=== PATIENT | male | born 1960 | race Caucasian/White ===

== ENCOUNTER 2016-10-12 22:44 | Emergency (ER) | payer BC ==
[2016-10-12] MEDS ORDERED: Aspirin 81 MG Tab.Chew ONE (22:53)
[2016-10-12] MEDS ORDERED: Clopidogrel 75 MG Tab ONE (22:55)
[2016-10-12] MEDS ORDERED: Tenecteplase 50 MG Kit ONE (23:00)
[2016-10-12] MEDS ORDERED: Heparin Sod,Pork In 0.45% Nacl 25,000 UNIT/500 ML IV.SOLN IV ONE (23:02)
[2016-10-12] MEDS ORDERED: Heparin Sodium 5,000 Units/ML Vial ONE (23:04)
[2016-10-12] MEDS ORDERED: Aspirin 81 MG Tab.Chew PO ONE ×2 (23:05→23:17)
[2016-10-12] MEDS ORDERED: Sodium Chloride 0.9% 10 ML Syringe FLUSH PRN (23:05)
[2016-10-12] MEDS ORDERED: Sodium Chloride 0.9% 2.5 ML Syringe FLUSH PRN (23:05)
[2016-10-12] MEDS ORDERED: Heparin Sodium 5,000 Units/ML Vial IVPUSH ONE (23:07)
[2016-10-12] MEDS ORDERED: Clopidogrel 75 MG Tab PO ONE (23:17)
[2016-10-12] MEDS ORDERED: Tenecteplase 50 MG Kit IV STA (23:18)
[2016-10-12] MEDS ORDERED: Heparin Sod,Pork In 0.45% Nacl 25,000 UNIT/500 ML IV.SOLN IV SCH (23:30)
[2016-10-12] MEDS ORDERED: Sodium Chloride 0.9% 1,000 ML IV SCH (23:45)
[2016-10-13 01:01] VITALS: BP 128/85
--- NOTE | 2016-10-13 01:42 | EDM.PDOC ---
ED HPI GENERAL MEDICAL PROBLEM - General Chief Complaint: Chest Pain Stated Complaint: CHEST PAIN/BACK PAIN Time Seen by Provider: 10/12/16 23:04 Source of Information: Reports: Patient, Family History Limitations: Reports: No Limitations - History of Present Illness INITIAL COMMENTS - FREE TEXT/NARRATIVE: HISTORY AND PHYSICAL: History of present illness: [56-year-old male with a history of prior rhinorrhea artery disease and MT, now presents emergency department complaining of sudden onset of chest pressure with lightheadedness nausea and sweating just prior to arrival. Patient states that his pain feels just like when he had his previous heart attack. Brought in by family for evaluation. Patient states he had taken 2 baby aspirin at home. he is not on any anticoagulants. Denies recent illness. Pain does not radiate. He has no pleuritic pain. No productive cough or fever. Pain is not worse with movement ,range of motion, or palpation. Review of systems: As per history of present illness and below otherwise all systems reviewed and negative. Past medical history: As per history of present illness and as reviewed below otherwise noncontributory. Surgical history: As per history of present illness and as reviewed below otherwise noncontributory. Social history: No reported history of drug or alcohol abuse. Family history: As per history of present illness and as reviewed below otherwise noncontributory. Physical exam: Ill-appearing patient mildly diaphoretic and pale. Alert, communicative and appropriate. Clear lungs regular rate and rhythm nontender abdomen with normal extremities and no edema. HEENT: Atraumatic, normocephalic, pupils reactive, negative for conjunctival pallor or scleral icterus, mucous membranes moist, throat clear, neck supple, nontender, trachea midline. Lungs: Clear to auscultation, breath sounds equal bilaterally, chest nontender. Heart: S1S2, regular, negative for clicks, rubs, or JVD. Abdomen: Soft, nondistended, nontender. Negative for masses or hepatosplenomegaly. Negative for costovertebral tenderness. Pelvis: Stable nontender. Genitourinary: Deferred. Rectal: Deferred. Extremities: Atraumatic, negative for cords or calf pain. Neurovascular unremarkable. Neuro: Awake, alert, oriented. Cranial nerves grossly unremarkable. Exam nonfocal. Diagnostics: [EKG normal sinus rhythm no tachycardia positive for anterolateral STEMI interpreted by me Chest x-ray no wide mediastinum. Chronic changes no acute disease interpreted by me] Therapeutics: [Patient taken 2 baby aspirin at home. To more given in ED. Plavix dose 300 mg administered by mouth. Heparin bolus and drip given and initiated. Patient hypotensive on arrival. IV fluids initiated however narcotics and nitroglycerin held because of hypotension. Thrombolytics given by me see procedure note] Impression: [STEMI Chest pain Hypotension] Plan: [Signs and symptoms consistent with acute coronary syndrome with EKG showing anterolateral STEMI. EKG obtained immediately on arrival and read at bedside by me. STEMI alert activated. Patient initially hypotensive and diaphoretic however his diaphoresis resolved with IV fluids and improve blood pressure. Patient with no contraindications to thrombolytics. He is aware the risk of bleeding including or permanent disability however agrees with administration of thrombolytics as standard of care for his acute MT. Heparinization initiated. After MT diagnosed on EKG, [facility] was immediately contacted regarding transfer. Taste discussed with Dr. Rviera in the emergency department and accepted in transfer for intervention in the [facility] as needed. Patient will be flown via [employer] helicopter air ambulance. Transfer initiated. Procedure: Administration of thrombolytics by me. TNKase dosed for patient's 100 kg weight. Verbal consent obtained after patient was screened for contraindications and risks explained. Does prepare, verified as correct by me 50 mg IV push at bedside by me with 5 mL normal saline flush. No infiltration in the IV site. Patient tolerated well with no complications. Critical care 54 minutes Definitive disposition and diagnosis as appropriate pending reevaluation and review of above. chest Pain Score (Numeric/FACES): 9 - Related Data Allergies Allergy/AdvReac Type Severity Reaction Status Date / Time No Known Allergies Allergy Verified 10/12/16 23:01 Home Meds: Home Meds Aspirin 81 mg PO BRK 10/12/16 [History] Past Medical History Cardiovascular History: Reports: High Cholesterol, Hypertension, MT, Stents Respiratory History: Reports: None Gastrointestinal History: Reports: None Genitourinary History: Reports: None Other Musculoskeletal History: carpel tunnel Neurological History: Reports: None Psychiatric History: Reports: None Endocrine/Metabolic History: Reports: None Oncologic (Cancer) History: Reports: None Dermatologic History: Reports: None - Infectious Disease History Infectious Disease History: Reports: Chicken Pox - Past Surgical History HEENT Surgical History: Reports: Eye Surgery Male Surgical History: Reports: None Social & Family History - Family History Family Medical History: Noncontributory - Tobacco Use Smoking Status *Q: Current Every Day Smoker Years of Tobacco use: 30 Packs/Tins Daily: 1 - Recreational Drug Use Recreational Drug Use: Yes Recreational Drug Type: Reports: Marijuana/Hashish ED ROS GENERAL - Review of Systems Review Of Systems: See Below (History of present illness) ED EXAM, GENERAL - Physical Exam Exam: See Below (History of present illness) Course - Vital Signs Last Recorded V/S: Last Vital Signs Temp 36.1 C 10/12/16 22:44 Pulse 105 H 10/12/16 23:31 Resp 22 H 10/12/16 23:31 BP 128/85 10/12/16 23:31 Pulse Ox 97 10/12/16 23:31 - Orders/Labs/Meds Orders: Active Orders 24 hr Category Date Time Status EKG 12 Lead [EKG Documentation Completion] [RC] STAT Care 10/12/16 23:05 Ordered Chest 1V Frontal [CR] Stat Exams 10/12/16 23:05 Ordered Heparin Sod,Pork In 0.45% Nacl [Heparin-1/2Ns 25,000 Med 10/12/16 23:30 Active Units/500] 25,000 unit in 500 ml IV TITRATE Sodium Chloride 0.9% [Normal Saline] 1,000 ml Med 10/12/16 23:45 Active IV ASDIRECTED Sodium Chloride 0.9% [Saline Flush] Med 10/12/16 23:05 Ordered 10 ml FLUSH ASDIRECTED PRN Sodium Chloride 0.9% [Saline Flush] Med 10/12/16 23:05 Ordered 2.5 ml FLUSH ASDIRECTED PRN Peripheral IV Insertion Adult [OM.PC] Stat Oth 10/12/16 23:05 Ordered Medication Orders Heparin Sod,Pork In 0.45% Nacl (Heparin-1/2ns 25,000 Units/500) 25,000 unit in 500 mls @ 23.732 mls/hr IV TITRATE SCAR; 12 UNITS/KG/HR PRN Reason: Protocol Last Admin: 10/12/16 23:08 Dose: 12 units/kg/hr, 23.732 mls/hr Sodium Chloride (Normal Saline) 1,000 mls @ 999 mls/hr IV ASDIRECTED SCAR Last Admin: 10/12/16 22:44 Dose: 999 mls/hr Sodium Chloride (Saline Flush) 10 ml FLUSH ASDIRECTED PRN PRN Reason: Keep Vein Open Sodium Chloride (Saline Flush) 2.5 ml FLUSH ASDIRECTED PRN PRN Reason: Keep Vein Open Labs: Laboratory Tests 10/12/16 10/12/16 10/12/16 Range/Units 22:48 22:48 22:48 WBC 10.02 (4.0-11.0) K/uL RBC 4.65 (4.50-5.90) M/uL Hgb 15.3 (13.0-17.0) g/dL Hct 45.1 (38.0-50.0) % MCV 97.0 (80.0-98.0) fL MCH 32.9 H (27.0-32.0) pg MCHC 33.9 (31.0-37.0) g/dL RDW Std Deviation 45.7 (28.0-62.0) fl RDW Coeff of Fariba 13 (11.0-15.0) % Plt Count 207 (150-400) K/uL MPV 10.70 (7.40-12.00) fL Neut % (Auto) 61.5 (48.0-80.0) % Lymph % (Auto) 26.9 (16.0-40.0) % [place] % (Auto) 8.1 (0.0-15.0) % Eos % (Auto) 2.9 (0.0-7.0) % Baso % (Auto) 0.6 (0.0-1.5) % Neut # (Auto) 6.2 H (1.4-5.7) K/uL Lymph # (Auto) 2.7 H (0.6-2.4) K/uL [place] # (Auto) 0.8 (0.0-0.8) K/uL Eos # (Auto) 0.3 (0.0-0.7) K/uL Baso # (Auto) 0.1 (0.0-0.1) K/uL Nucleated RBC % 0.0 /100WBC Nucleated RBCs # 0 K/uL INR (0.86-1.11) Sodium 138 (136-146) mmol/L Potassium 3.6 (3.5-5.1) mmol/L Chloride 103 (98-110) mmol/L Carbon Dioxide 25 (21-31) mmol/L BUN 19 (6.0-23.0) mg/dL Creatinine 1.6 H (0.6-1.5) mg/dL Est Cr Clr Drug Dosing 47.62 mL/min Estimated GFR (MDRD) 44.8 ml/min Glucose 108 (60-110) mg/dL Calcium 9.5 (8.8-10.8) mg/dL Magnesium (1.5-2.3) mEq/L Total Bilirubin 0.4 (0.1-1.5) mg/dL AST 16 (5-40) IU/L ALT 18 (8-54) IU/L Alkaline Phosphatase 45 (40-150) CK-MB (CK-2) (0-6.6) ng/ml Troponin I < 0.10 (0.0-0.29) NG/ML Total Protein 6.8 (6.0-8.0) g/dL Albumin 4.0 (3.5-5.0) g/dL Globulin 2.8 (2.0-3.5) g/dL Albumin/Globulin Ratio 1.4 (1.3-2.8) 10/12/16 10/12/16 Range/Units 22:48 22:48 WBC (4.0-11.0) K/uL RBC (4.50-5.90) M/uL Hgb (13.0-17.0) g/dL Hct (38.0-50.0) % MCV (80.0-98.0) fL MCH (27.0-32.0) pg MCHC (31.0-37.0) g/dL RDW Std Deviation (28.0-62.0) fl RDW Coeff of Fariba (11.0-15.0) % Plt Count (150-400) K/uL MPV (7.40-12.00) fL Neut % (Auto) (48.0-80.0) % Lymph % (Auto) (16.0-40.0) % [place] % (Auto) (0.0-15.0) % Eos % (Auto) (0.0-7.0) % Baso % (Auto) (0.0-1.5) % Neut # (Auto) (1.4-5.7) K/uL Lymph # (Auto) (0.6-2.4) K/uL [place] # (Auto) (0.0-0.8) K/uL Eos # (Auto) (0.0-0.7) K/uL Baso # (Auto) (0.0-0.1) K/uL Nucleated RBC % /100WBC Nucleated RBCs # K/uL INR 0.99 (0.86-1.11) Sodium (136-146) mmol/L Potassium (3.5-5.1) mmol/L Chloride (98-110) mmol/L Carbon Dioxide (21-31) mmol/L BUN (6.0-23.0) mg/dL Creatinine (0.6-1.5) mg/dL Est Cr Clr Drug Dosing mL/min Estimated GFR (MDRD) ml/min Glucose (60-110) mg/dL Calcium (8.8-10.8) mg/dL Magnesium 1.6 (1.5-2.3) mEq/L Total Bilirubin (0.1-1.5) mg/dL AST (5-40) IU/L ALT (8-54) IU/L Alkaline Phosphatase (40-150) CK-MB (CK-2) 1.4 (0-6.6) ng/ml Troponin I (0.0-0.29) NG/ML Total Protein (6.0-8.0) g/dL Albumin (3.5-5.0) g/dL Globulin (2.0-3.5) g/dL Albumin/Globulin Ratio (1.3-2.8) Meds: Medications Generic Name Dose Route Start Last Admin Trade Name Freq PRN Reason Stop Dose Admin Heparin Sod,Pork In 0.45% Nacl 25,000 unit in 500 mls @ 23.732 mls/hr 23:30 10/12/16 23:08 Heparin-1/2ns 25,000 Units/500 IV 12 units/kg/hr TITRATE SCAR 23.732 mls/hr Protocol Administration 12 UNITS/KG/HR Sodium Chloride 1,000 mls @ 999 mls/hr 10/12/16 23:45 10/12/16 22:44 Normal Saline IV 999 mls/hr ASDIRECTED SACR Administration Sodium Chloride 10 ml 10/12/16 23:05 Saline Flush FLUSH ASDIRECTED PRN Keep Vein Open Sodium Chloride 2.5 ml 10/12/16 23:05 Saline Flush FLUSH ASDIRECTED PRN Keep Vein Open Discontinued Medications Generic Name Dose Route Start Last Admin Trade Name Mojgan PRN Reason Stop Dose Admin Aspirin Confirm 10/12/16 22:53 10/12/16 23:45 Aspirin Administered 10/12/16 22:54 Not Given Dose 162 mg .ROUTE .STK-MED ONE Aspirin 324 mg 10/12/16 23:05 10/12/16 23:45 Aspirin PO 10/12/16 23:06 Not Given ONETIME ONE Aspirin 162 mg 10/12/16 23:17 10/12/16 22:53 Aspirin PO 10/12/16 23:18 162 mg ONETIME ONE Administration Clopidogrel Bisulfate Confirm 10/12/16 22:55 10/12/16 23:45 Plavix Administered 10/12/16 22:56 Not Given Dose 600 mg .ROUTE .STK-MED ONE Clopidogrel Bisulfate 300 mg 10/12/16 23:17 10/12/16 23:03 Plavix PO 10/12/16 23:18 300 mg ONETIME ONE Administration Heparin Sodium (Porcine) Confirm 10/12/16 23:04 10/12/16 23:45 Heparin Sodium Administered 10/12/16 23:05 Not Given Dose 10,000 units .ROUTE .STK-MED ONE Heparin Sodium (Porcine) 4,000 units 10/12/16 23:07 10/12/16 23:07 Heparin Sodium IVPUSH 10/12/16 23:08 4,000 units ONETIME ONE Administration Heparin Sod,Pork In 0.45% Nacl Confirm 10/12/16 23:02 10/12/16 23:45 Heparin-1/2ns 25,000 Units/500 Administered 10/12/16 23:03 Not Given Dose 25,000 unit in 500 mls @ as directed IV .STK-MED ONE Tenecteplase Confirm 10/12/16 23:00 10/12/16 23:45 Tnkase Administered 10/12/16 23:01 Not Given Dose 50 mg .ROUTE .STK-MED ONE Tenecteplase 50 mg 10/12/16 23:18 10/12/16 23:18 Tnkase IV 10/12/16 23:19 50 mg NOW STA Administration Protocol Departure - Departure Time of Disposition: 23:40 Disposition: DC/Tfer to Acute Hospital 02 Condition: Critical Clinical Impression: STEMI (ST elevation myocardial infarction), Chest pain, Hypotension - Discharge Information - My Orders Last 24 Hours: My Active Orders 10/12/16 23:05 EKG 12 Lead [EKG Documentation Completion] [RC] STAT Chest 1V Frontal [CR] Stat Sodium Chloride 0.9% [Saline Flush] 10 ml FLUSH ASDIRECTED PRN Sodium Chloride 0.9% [Saline Flush] 2.5 ml FLUSH ASDIRECTED PRN Peripheral IV Insertion Adult [OM.PC] Stat 10/12/16 23:30 Heparin Sod,Pork In 0.45% Nacl [Heparin-1/2Ns 25,000 Units/500] 25,000 unit in 500 ml IV TITRATE 10/12/16 23:45 Sodium Chloride 0.9% [Normal Saline] 1,000 ml IV ASDIRECTED - Assessment/Plan Last 24 Hours: My Active Orders 10/12/16 23:05 EKG 12 Lead [EKG Documentation Completion] [RC] STAT Chest 1V Frontal [CR] Stat Sodium Chloride 0.9% [Saline Flush] 10 ml FLUSH ASDIRECTED PRN Sodium Chloride 0.9% [Saline Flush] 2.5 ml FLUSH ASDIRECTED PRN Peripheral IV Insertion Adult [OM.PC] Stat 10/12/16 23:30 Heparin Sod,Pork In 0.45% Nacl [Heparin-1/2Ns 25,000 Units/500] 25,000 unit in 500 ml IV TITRATE 10/12/16 23:45 Sodium Chloride 0.9% [Normal Saline] 1,000 ml IV ASDIRECTED
--- NOTE | 2016-10-13 10:56 | CR ---
EXAM DATE: 10/12/16 PATIENT'S AGE: 56 Patient: LEIGH VILLASENOR Facility: [place], [place] Site . Site : 1960 Study: XRay Chest [id number] 11:19:52 PM Ordering Physician: Flaquito Harper Final Report: INDICATIONS: Pain. TECHNIQUE: Chest 1 view portable. COMPARISON: None FINDINGS: The peripheral right costophrenic angle is excluded from the field of view. No evidence of pneumothorax or pleural effusion. Indeterminate nodular density at the left lung base. Lungs are otherwise clear. Cardiac and mediastinal contours are within normal limits. Upper abdomen and osseous structures show no acute abnormality. IMPRESSION: No evidence of acute cardiopulmonary disease. Indeterminate nodular density at the left lung base. Followup chest CT recommended to confirm or disprove the presence of a pulmonary nodule. If appropriate, this can be done on a nonemergent basis. Dictated by Anthony Elder MD @ 10/12/2016 11:31:05 PM Dictated by: Anthony Elder MD @ 10/12/2016 23:31:17 (Electronic Signature) Report Signed by Proxy. THERESE
== END 2016-10-12 23:38 ==
LOC: MW.ED 22:44
DX: I21.3 ST elevation (STEMI) myocardial infarction of unspecified site (principal); I95.9 Hypotension, unspecified; I10 Essential (primary) hypertension; F17.210 Nicotine dependence, cigarettes, uncomplicated; Z98.890 Other specified postprocedural states; Z95.5 Presence of coronary angioplasty implant and graft
CPT/HCPCS: 36415; 71010; 80053; 82553; 83735; 84484; 85025; 85610; 93005; 96361; 96365; 96374; 99285; A9270; J1644; J3101; J7040; 99291

== ENCOUNTER 2016-10-23 22:14 | Observation (INO) | payer BC ==
[2016-10-23] MEDS ORDERED: Aspirin 81 MG Tab.Chew PO ONE (22:21)
--- NOTE | 2016-10-23 22:23 | EDM.PDOC ---
ED HPI GENERAL MEDICAL PROBLEM - General Chief Complaint: General Stated Complaint: CHEST PAIN Time Seen by Provider: 10/23/16 22:22 Source of Information: Reports: Patient - History of Present Illness INITIAL COMMENTS - FREE TEXT/NARRATIVE: HISTORY AND PHYSICAL: History of present illness: []Patient presents with history of recent DC on 10/12/2016 he was initially shipped a minute where he was stented in the LAD, tonight she had sharp. Pain was lightheaded sweaty this since resolved no fever nausea vomiting chills sweats no current chest pain shortness breath headache dizziness or palpitation no bowel or urine symptoms Review of systems: As per history of present illness and below otherwise all systems reviewed and negative. Past medical history: As per history of present illness and as reviewed below otherwise noncontributory. Surgical history: As per history of present illness and as reviewed below otherwise noncontributory. Social history: No reported history of drug or alcohol abuse. Family history: As per history of present illness and as reviewed below otherwise noncontributory. Physical exam: HEENT: Atraumatic, normocephalic, pupils reactive, negative for conjunctival pallor or scleral icterus, mucous membranes moist, throat clear, neck supple, nontender, trachea midline. Lungs: Clear to auscultation, breath sounds equal bilaterally, chest nontender. Heart: S1S2, regular, negative for clicks, rubs, or JVD. Abdomen: Soft, nondistended, nontender. Negative for masses or hepatosplenomegaly. Negative for costovertebral tenderness. Pelvis: Stable nontender. Genitourinary: Deferred. Rectal: Deferred. Extremities: Atraumatic, negative for cords or calf pain. Neurovascular unremarkable. Neuro: Awake, alert, oriented. Cranial nerves II through XII unremarkable. Cerebellum unremarkable. Motor and sensory unremarkable throughout. Exam nonfocal. Diagnostics: []CBC, CMP, cardiac enzymes Therapeutics: Normal saline bolus Aspirin 324 mg chewable EKG Chest 1 view Impression: []A typical chest pain Definitive disposition and diagnosis as appropriate pending reevaluation and review of above. no pain Pain Score (Numeric/FACES): 0 - Related Data Allergies Allergy/AdvReac Type Severity Reaction Status Date / Time No Known Allergies Allergy Verified 10/23/16 22:20 Home Meds: Home Meds Aspirin 81 mg PO BRK 10/12/16 [History] Clopidogrel Bisulfate [Plavix] 75 mg PO DAILY 10/23/16 [History] Losartan [Cozaar] 25 mg PO DAILY 10/23/16 [History] Metoprolol Succinate [Toprol XL] 25 mg PO DAILY 10/23/16 [History] Nitroglycerin 1 tab SL ASDIRECTED 10/23/16 [History] Past Medical History Cardiovascular History: Reports: High Cholesterol, Hypertension, DC, Stents Respiratory History: Reports: None Gastrointestinal History: Reports: None Genitourinary History: Reports: None Other Musculoskeletal History: carpel tunnel Neurological History: Reports: None Psychiatric History: Reports: None Endocrine/Metabolic History: Reports: None Oncologic (Cancer) History: Reports: None Dermatologic History: Reports: None - Infectious Disease History Infectious Disease History: Reports: Chicken Pox - Past Surgical History HEENT Surgical History: Reports: Eye Surgery Male Surgical History: Reports: None Social & Family History - Family History Family Medical History: Noncontributory - Tobacco Use Smoking Status *Q: Current Every Day Smoker Years of Tobacco use: 30 Packs/Tins Daily: 1 - Recreational Drug Use Recreational Drug Use: Yes Recreational Drug Type: Reports: Marijuana/Hashish ED ROS GENERAL - Review of Systems Review Of Systems: ROS reveals no pertinent complaints other than HPI. ED EXAM, GENERAL - Physical Exam Exam: See Below Course - Vital Signs Last Recorded V/S: Last Vital Signs Temp 36.1 C 10/23/16 22:20 Pulse 74 10/23/16 23:01 Resp 20 10/23/16 23:01 BP 127/69 10/23/16 23:01 Pulse Ox 98 10/23/16 23:01 - Orders/Labs/Meds Orders: Active Orders 24 hr Category Date Time Status EKG Documentation Completion [RC] STAT Care 10/23/16 22:21 Active Chest 1V Frontal [CR] Stat Exams 10/23/16 22:21 Taken UA W/MICROSCOPIC [URIN] Stat Lab 10/23/16 22:21 Uncollected Sodium Chloride 0.9% [Normal Saline] 1,000 ml Med 10/23/16 22:30 Active IV STAT Medication Orders Sodium Chloride (Normal Saline) 1,000 mls @ 125 mls/hr IV STAT SCAR Last Admin: 10/23/16 22:29 Dose: 125 mls/hr Labs: Laboratory Tests 10/23/16 10/23/16 10/23/16 Range/Units 22:25 22:25 22:25 WBC 9.20 (4.0-11.0) K/uL RBC 4.49 L (4.50-5.90) M/uL Hgb 14.8 (13.0-17.0) g/dL Hct 43.7 (38.0-50.0) % MCV 97.3 (80.0-98.0) fL MCH 33.0 H (27.0-32.0) pg MCHC 33.9 (31.0-37.0) g/dL RDW Std Deviation 46.0 (28.0-62.0) fl RDW Coeff of Fariba 13 (11.0-15.0) % Plt Count 189 (150-400) K/uL MPV 10.80 (7.40-12.00) fL Neut % (Auto) 64.3 (48.0-80.0) % Lymph % (Auto) 23.3 (16.0-40.0) % [place] % (Auto) 8.4 (0.0-15.0) % Eos % (Auto) 3.3 (0.0-7.0) % Baso % (Auto) 0.7 (0.0-1.5) % Neut # (Auto) 5.9 H (1.4-5.7) K/uL Lymph # (Auto) 2.1 (0.6-2.4) K/uL [place] # (Auto) 0.8 (0.0-0.8) K/uL Eos # (Auto) 0.3 (0.0-0.7) K/uL Baso # (Auto) 0.1 (0.0-0.1) K/uL Nucleated RBC % 0.0 /100WBC Nucleated RBCs # 0 K/uL Sodium 137 (136-146) mmol/L Potassium 3.8 (3.5-5.1) mmol/L Chloride 101 (98-110) mmol/L Carbon Dioxide 25 (21-31) mmol/L BUN 15 (6.0-23.0) mg/dL Creatinine 1.4 (0.6-1.5) mg/dL Est Cr Clr Drug Dosing 58.22 mL/min Estimated GFR (MDRD) 52.2 ml/min Glucose 131 H (60-110) mg/dL Calcium 9.1 (8.8-10.8) mg/dL Total Bilirubin 0.4 (0.1-1.5) mg/dL AST 17 (5-40) IU/L ALT 19 (8-54) IU/L Alkaline Phosphatase 55 (40-150) Troponin I < 0.10 (0.0-0.29) NG/ML Total Protein 6.9 (6.0-8.0) g/dL Albumin 3.9 (3.5-5.0) g/dL Globulin 3.0 (2.0-3.5) g/dL Albumin/Globulin Ratio 1.3 (1.3-2.8) Meds: Medications Generic Name Dose Route Start Last Admin Trade Name Freq PRN Reason Stop Dose Admin Sodium Chloride 1,000 mls @ 125 mls/hr 10/23/16 22:30 10/23/16 22:29 Normal Saline IV 125 mls/hr STAT SCAR Administration Discontinued Medications Generic Name Dose Route Start Last Admin Trade Name Freq PRN Reason Stop Dose Admin Aspirin 324 mg 10/23/16 22:21 10/23/16 22:27 Aspirin PO 10/23/16 22:22 162 mg ONETIME ONE Administration Departure - Departure Time of Disposition: 23:25 Disposition: Refer to Observation Condition: Fair Clinical Impression: Atypical chest pain - Discharge Information Forms: ED Department Discharge - My Orders Last 24 Hours: My Active Orders 10/23/16 22:21 EKG Documentation Completion [RC] STAT Chest 1V Frontal [CR] Stat UA W/MICROSCOPIC [URIN] Stat 10/23/16 22:30 Sodium Chloride 0.9% [Normal Saline] 1,000 ml IV STAT - Assessment/Plan Last 24 Hours: My Active Orders 10/23/16 22:21 EKG Documentation Completion [RC] STAT Chest 1V Frontal [CR] Stat UA W/MICROSCOPIC [URIN] Stat 10/23/16 22:30 Sodium Chloride 0.9% [Normal Saline] 1,000 ml IV STAT
[2016-10-23] MEDS ORDERED: Sodium Chloride 0.9% 1,000 ML IV SCH (22:30)
[2016-10-24] MEDS ORDERED: Albuterol/Ipratropium 3.0-0.5 MG/3 ML Neb Soln NEB PRN (00:59)
[2016-10-24] MEDS ORDERED: Nitroglycerin 0.4 MG Tab.SL SL PRN (01:30)
[2016-10-24] MEDS ORDERED: Calcium Carbonate 500 MG Tab.Chew PO PRN (01:35)
[2016-10-24] MEDS: Pantoprazole 40 MG Tab.CR PO SCH ×2 (01:47→08:16)
[2016-10-24] MEDS ORDERED: Aspirin 81 MG Tab.Chew PO SCH (09:00)
[2016-10-24] MEDS ORDERED: Metoprolol Succinate 25 MG Tab.ER PO SCH (09:00)
[2016-10-24] MEDS ORDERED: Clopidogrel 75 MG Tab PO SCH (09:00)
[2016-10-24] MEDS ORDERED: Losartan 50 MG Tab PO SCH (09:00)
[2016-10-24] MEDS ORDERED: Albuterol 8 GM Inhaler INH PRN (09:11)
[2016-10-24] MEDS ORDERED: prednisoLONE Acetate 1% Ophth Susp 5 ML Bottle EYEBOTH SCH (09:15)
--- NOTE | 2016-10-24 09:44 | PCM.HP ---
H&P History of Present Illness - General Date of Service: 10/24/16 - History of Present Illness Initial Comments - Free Text/Narative: 56-year-old gentleman who is presenting with , diaphoresis, and lightheadedness patient had significant past medical history of a recent MRI on 10/12/2016 with a stent placement in the LAD. patient states that he was going from the gas station and started to feel lightheaded and felt as if his heart had stopped. He states about a time he had gotten home the lightheadedness had resolved. He did not have any episodes of syncope. However, the diaphoresis and lightheadedness did start to come back he took 2 tablets of 81 mg aspirin as well as his sublingual nitroglycerin. After the sublingual nitroglycerin his diaphoresis and lightheadedness seem to gotten worse. He then came to the ER to be assessed. He did state that he also has back pain T1 to T2 area which is chronic in nature. He previously saw cardiology here in [place] on Monday. He states that throughout this entire process he had no chest pain or chest pressure. Onset of Symptoms: Reports: Sudden no pain Pain Score (Numeric/FACES): 0 - Related Data Allergies/Adverse Reactions: Allergies Allergy/AdvReac Type Severity Reaction Status Date / Time No Known Allergies Allergy Verified 10/23/16 22:20 Home Medications: Home Meds Aspirin 81 mg PO BRK 10/12/16 [History] Clopidogrel Bisulfate [Plavix] 75 mg PO DAILY 10/23/16 [History] Losartan [Cozaar] 25 mg PO DAILY 10/23/16 [History] Metoprolol Succinate [Toprol XL] 25 mg PO DAILY 10/23/16 [History] Albuterol Sulfate [Proair Hfa] 1 puff INH ASDIRECTED PRN 10/24/16 [History] Nitroglycerin 0.4 mg SL ASDIRECTED PRN 10/24/16 [History] prednisoLONE Acetate [Prednisolone Acetate] 1 drop OP DAILY 10/24/16 [History] Past Medical History HEENT History: Reports: Other (See Below) Other HEENT History: Corneal Problem Cardiovascular History: Reports: High Cholesterol, Hypertension, [place], Stents Respiratory History: Reports: COPD, Other (See Below) Other Respiratory History: sarcoidosis Gastrointestinal History: Reports: None Genitourinary History: Reports: None Other Musculoskeletal History: carpel tunnel Neurological History: Reports: None Psychiatric History: Reports: None Endocrine/Metabolic History: Reports: None Hematologic History: Reports: None Oncologic (Cancer) History: Reports: None Dermatologic History: Reports: None - Infectious Disease History Infectious Disease History: Reports: Chicken Pox - Past Surgical History HEENT Surgical History: Reports: Eye Surgery Male Surgical History: Reports: None Social & Family History - Family History Family Medical History: Noncontributory - Tobacco Use Smoking Status *Q: Current Every Day Smoker Years of Tobacco use: 30 Packs/Tins Daily: 0.5 - Caffeine Use Caffeine Use: Reports: Coffee - Recreational Drug Use Recreational Drug Use: Yes Recreational Drug Type: Reports: Marijuana/Hashish H&P Review of Systems - Review of Systems: Review Of Systems: See Below Exam - Exam Exam: See Below - Vital Signs Vital Signs: Last Vital Signs Temp 36.4 C 10/24/16 08:00 Pulse 70 10/24/16 08:17 Resp 18 10/24/16 08:00 BP 104/60 10/24/16 08:17 Pulse Ox 95 10/24/16 08:00 Weight: 108.6 kg - Exam General: Alert, Oriented HEENT: Conjunctiva Clear Neck: Supple, Trachea Midline Lungs: Clear to Auscultation, Normal Respiratory Effort Cardiovascular: Regular Rhythm, Bradycardia GI/Abdominal Exam: Normal Bowel Sounds, Soft Extremities: Normal Inspection, Non-Tender, No Pedal Edema - Patient Data Lab Results Last 24 hrs: Laboratory Results - last 24 hr 10/24/16 10/24/16 Range/Units 03:25 04:30 Troponin I < 0.10 (0.0-0.29) NG/ML Urine Color YELLOW Urine Appearance CLEAR Urine pH 7.0 (5.0-8.0) Ur Specific [place] 1.010 (1.001-1.035) Urine Protein NEGATIVE (NEGATIVE) mg/dL Urine Glucose (UA) NEGATIVE (NEGATIVE) mg/dL Urine Ketones NEGATIVE (NEGATIVE) mg/dL Urine Occult Blood NEGATIVE (NEGATIVE) Urine Nitrite NEGATIVE (NEGATIVE) Urine Bilirubin NEGATIVE (NEGATIVE) Urine Urobilinogen 0.2 (<2.0) EU/dL Ur Leukocyte Esterase NEGATIVE (NEGATIVE) Urine RBC 0-1 (0-2/HPF) Urine WBC 0-2 (0-5/HPF) Ur Epithelial Cells RARE (NONE-FEW) Urine Bacteria FEW (NEGATIVE) Result Diagrams: 10/23/16 22:25 10/23/16 22:25 *Q Meaningful Use (ADM) - VTE *Q VTE Criteria *Q: - Stroke *Q Stroke Criteria *Q: - AMI *Q AMI Criteria *Q: - Problem List (1) Bradycardia SNOMED Code(s): 15050511 ICD Code: R00.1 - BRADYCARDIA, UNSPECIFIED Status: Acute Current Visit: Yes (2) Atypical chest pain SNOMED Code(s): 311678244 ICD Code: R07.89 - OTHER CHEST PAIN Status: Acute Current Visit: Yes Problem List Initiated/Reviewed/Updated: Yes Orders Last 24hrs: Active Orders 24 hr Category Date Time Status Communication Order [RC] ROUTINE Care 10/24/16 00:59 Active RT Aerosol Therapy [RC] ASDIRECTED Care 10/24/16 01:00 Active Telemetry Monitoring [Cardiac Monitoring] [RC] . Care 10/23/16 23:37 Active DIRECTED Cardiac [Heart Healthy Diet] [DIET] Diet 10/24/16 Breakfast Active TROPONIN I [CHEM] Q6H Lab 10/24/16 10:25 Ordered Albuterol [Ventolin HFA] Med 10/24/16 09:11 Active 0 gm INH ASDIRECTED PRN Albuterol/Ipratropium [DuoNeb 3.0-0.5 MG/3 ML] Med 10/24/16 00:59 Active 3 ml NEB Q6HRRT PRN Aspirin Med 10/24/16 09:00 Active 81 mg PO BRK Calcium Carbonate [Tums] Med 10/24/16 01:35 Active 500 - 1,000 mg PO TID PRN Clopidogrel [Plavix] Med 10/24/16 09:00 Active 75 mg PO DAILY Losartan [Cozaar] Med 10/24/16 09:00 Active 25 mg PO DAILY Metoprolol Succinate [Toprol XL] Med 10/24/16 09:00 Active 25 mg PO DAILY Nitroglycerin [Nitrostat] Med 10/24/16 01:30 Active 0.4 mg SL ASDIRECTED PRN Pantoprazole [ProTONIX] Med 10/24/16 01:45 Active 40 mg PO DAILY prednisoLONE Acetate [Pred Forte 1% Ophth Susp] Med 10/24/16 09:15 Active 0 ml EYEBOTH DAILY Medication Orders Albuterol (Ventolin Hfa) 0 gm INH ASDIRECTED PRN PRN Reason: Wheezing Albuterol/Ipratropium (Duoneb 3.0-0.5 Mg/3 Ml) 3 ml NEB Q6HRRT PRN PRN Reason: Wheezing Last Admin: 10/24/16 01:16 Dose: 3 ml Aspirin (Aspirin) 81 mg PO BRK [facility] Last Admin: 10/24/16 08:16 Dose: 81 mg Calcium Carbonate/Glycine (Tums) 500 - 1,000 mg PO TID PRN PRN Reason: Indigestion Last Admin: 10/24/16 01:47 Dose: 1,000 mg Clopidogrel Bisulfate (Plavix) 75 mg PO DAILY [facility] Last Admin: 10/24/16 08:17 Dose: 75 mg Losartan Potassium (Cozaar) 25 mg PO DAILY [facility] Last Admin: 10/24/16 08:16 Dose: 25 mg Metoprolol Succinate (Toprol Xl) 25 mg PO DAILY [facility] Last Admin: 10/24/16 08:17 Dose: 25 mg Nitroglycerin (Nitrostat) 0.4 mg SL ASDIRECTED PRN PRN Reason: angina Pantoprazole Sodium (Protonix) 40 mg PO DAILY [facility] Last Admin: 10/24/16 08:16 Dose: 40 mg Admin: 10/24/16 01:47 Dose: 40 mg Prednisolone Acetate (Pred Forte 1% Ophth Susp) 0 ml EYEBOTH DAILY [facility] Assessment/Plan Comment:: assessment and plan: #1. Diaphoresis, lightheadedness and feeling of heart slowing down/stopping with a significant past medical history of a recent RI on 10/12/2016 with stent placement -ACS rule out - patient put on telemetry, troponin 3 -CMP as well as CBC - we shall hold the patient's metoprolol which she did receive today. - He did have significant bradycardia which could be classified as type I with a 3 second be delay. We shall speak with cardiology to get further recommendations. -Continue to observe the patient for today and if the patient is doing better and cardiology recommends outpatient follow-up and possible discharge later in the evening.
--- NOTE | 2016-10-24 13:41 | CR ---
EXAM DATE: 10/23/16 PATIENT'S AGE: 56 Patient: LEIGH VILLASENOR Facility: [place], [place] Site . Site : 1960 Study: XRay Chest [id number]/[id number] 10:43:16 PM Ordering Physician: Martina Barraza Final Report: INDICATIONS: Chest pain. Shortness of breath. TECHNIQUE: Chest 1 view. COMPARISON: Chest radiograph October 12, 2016. FINDINGS: No pneumothorax, pleural effusion or airspace consolidation. Previously discussed nodular density at the left lung base is not discretely identified on the current study. Cardiac and mediastinal contours are within normal limits. Upper abdomen and osseous structures show no acute abnormality. IMPRESSION: No evidence of acute cardiopulmonary disease. Dictated by Anthony Elder MD @ 10/23/2016 10:57:31 PM Dictated by: Anthony Elder MD @ 10/23/2016 22:57:40 (Electronic Signature) Report Signed by Proxy. [facility] HOSPITALJacqueline
[2016-10-24 14:05] VITALS: BP 127/82
--- NOTE | 2016-10-24 15:04 | CONS ---
DATE OF CONSULTATION: 10/24/2016 DATE OF : 1960 PRIMARY CARE PHYSICIAN: Lenin Sommer M.D. REASON FOR CONSULTATION: Bradycardia. HISTORY: This is a 56-year-old male with history of hypertension; history of CAD, status post RCA PCI in the past, recent anterior wall STEMI, status post PCI in [facility]; history of hypertension; hyperlipidemia; and COPD; who presented to the hospital yesterday because of feeling dizzy and sweating as well. Since the heart attack recently, he has been feeling okay until yesterday when he was going to the gas station, he started having fluttering in his chest. It was very quick, like few seconds, and then he started feeling dizzy. No shortness of breath. No chest pain or tightness, and no syncope. He stated that he came close to passing out and lasted for 5 to 10 minutes, and then he went back home, and the symptoms started again with feeling like sick to his stomach and also feeling sweaty as well. Then, he did not want to take a chance so he ended up coming to the hospital. Since he has been admitted to the hospital, his symptoms have gone away. On the telemetry, he was found to be bradycardic with a heart rate of 36, but most of the time when he was sleeping. PAST MEDICAL HISTORY: RCA PCI, history of anterior wall STEMI, status post recent PCI; hypertension; hyperlipidemia; and COPD. SOCIAL HISTORY: He currently is a smoker, but recently quit it. No alcohol use and no drug use. FAMILY HISTORY: Mother had a history of diabetes and father had a history of cardiac disorder. CURRENT MEDICATIONS: Metoprolol 25 mg once a day, aspirin 81 mg once a day, Plavix 75 mg once a day, ProAir, and losartan 25 mg once a day. REVIEW OF SYSTEMS: Except as indicated in the HPI, has been negative. PHYSICAL EXAMINATION: VITAL SIGNS: Blood pressure is 104/60, heart rate of 50 to 70, O2 saturation 95% on room air, and temperature 36.4. HEENT: No pallor. No jaundice. No JVD. HEART: Normal S1, S2. No murmur. Regular rate and rhythm. LUNGS: Clear. ABDOMEN: Soft and nontender. Bowel sounds are present. No hepatosplenomegaly. EXTREMITIES: Legs, no edema. LABORATORY DATA: CBC showed WBC 9, hematocrit 43, hemoglobin 14, and platelets 189. Sodium 137, potassium 3.8, chloride 101, bicarb 25, BUN 15, creatinine 1.4, and glucose 131. Troponin is negative. UA is negative. IMAGING: EKG shows sinus rhythm with Q-wave in II, III, and aVF. ASSESSMENT AND PLAN: This is a 56-year-old male with history of anterolateral wall ST-segment elevation myocardial infarction, history of RCA total occlusion, status post PCI; hypertension; hyperlipidemia; chronic obstructive pulmonary disease; current smoker; who presented to the hospital with dizziness and was found to have bradycardia while sleeping. On his EKG and telemetry, there is a prolongation of P-P interval that is suggestive of a vagal reaction. The patient also stated that his symptoms of dizziness and sweating have been going on for probably 20 times over the past years. It was first started when he had severe back pain. At that time, he remembers that his back pain got so severe that he started having stomach pain as well as feeling dizzy, nauseated, and almost passed out. This could also be related to vasovagal reaction as well; however, I would like to make sure there is no arrhythmia. I will put him on a 30-day heart monitor prior to discharge as well as lower his Toprol-XL to 12.5 once a day and continue the rest of the medications. I will follow him up as an outpatient as well. The record from [facility] is still pending. DONA / CHITRA /[id number]
== END 2016-10-24 15:45 | disposition home or self-care (01) ==
LOC: MW.ED 22:14 → MW.ICU 23:27
PROVIDERS: ADMIT Internal Medicine; ATTEND Internal Medicine
DX: R61 Generalized hyperhidrosis (principal); R42 Dizziness and giddiness; R00.1 Bradycardia, unspecified; R07.89 Other chest pain; I25.2 Old myocardial infarction; I10 Essential (primary) hypertension; E78.00 Pure hypercholesterolemia, unspecified; J44.9 Chronic obstructive pulmonary disease, unspecified; F17.210 Nicotine dependence, cigarettes, uncomplicated; Z79.02 Long term (current) use of antithrombotics/antiplatelets; Z79.82 Long term (current) use of aspirin; Z79.899 Other long term (current) drug therapy; Z98.890 Other specified postprocedural states; Z95.9 Presence of cardiac and vascular implant and graft, unspecified
CPT/HCPCS: 36415; 71010; 80053; 81001; 84484; 85025; 93005; 93270; 96360; 96361; 99285; A9270; G0378; J7040; 99284

== ENCOUNTER 2019-09-15 09:58 | Emergency (ER) | payer BC ==
[2019-09-15] MEDS ORDERED: Lidocaine 5% 700 MG Patch TOP ONE (10:18)
--- NOTE | 2019-09-15 10:24 | EDM.PDOC ---
ED HPI GENERAL MEDICAL PROBLEM - General Chief Complaint: General Stated Complaint: RIB PAIN RT SIDE Time Seen by Provider: 09/15/19 10:05 - History of Present Illness INITIAL COMMENTS - FREE TEXT/NARRATIVE: 59-year-old male with past history notable for [place] x2 who is presenting with acute sharp right rib pain. The patient sat up from sleep the morning before yesterday and felt a pop in the midclavicular line in the inferior rib that was quite painful. He has had persistent pain there since that time. It worsens with coughing significantly there is no associated shortness of breath there is no chest tightness there is no radiation of the pain there is no pain with exertion. There is no lightheadedness no dizziness no nausea or vomiting. Pain is preventing him from sleeping it worsens when he lays back it is isolated to a particular point in the right anterior chest wall. right rib Pain Score (Numeric/FACES): 10 - Related Data Allergies Allergy/AdvReac Type Severity Reaction Status Date / Time No Known Allergies Allergy Verified 10/23/16 22:20 Home Meds: Home Meds Aspirin 81 mg PO BRK 10/12/16 [History] Clopidogrel Bisulfate [Plavix] 75 mg PO DAILY 10/23/16 [History] Losartan [Cozaar] 25 mg PO DAILY 10/23/16 [History] Albuterol Sulfate [Proair Hfa] 1 puff INH ASDIRECTED PRN 10/24/16 [History] Metoprolol Succinate [Toprol XL] 12.5 mg PO DAILY #30 tab.er 10/24/16 [Rx] Nitroglycerin 0.4 mg SL ASDIRECTED PRN 10/24/16 [History] prednisoLONE Acetate [Prednisolone Acetate] 1 drop OP DAILY 10/24/16 [History] Lidocaine 5% [Lidoderm 5%] 1 patch TOP DAILY 14 Days #14 patch 09/15/19 [Rx] Past Medical History HEENT History: Reports: Other (See Below) Other HEENT History: Corneal Problem Cardiovascular History: Reports: High Cholesterol, Hypertension, [place], Stents Respiratory History: Reports: COPD, Other (See Below) Other Respiratory History: sarcoidosis Gastrointestinal History: Reports: None Genitourinary History: Reports: None Other Musculoskeletal History: carpel tunnel Neurological History: Reports: None Psychiatric History: Reports: None Endocrine/Metabolic History: Reports: None Hematologic History: Reports: None Oncologic (Cancer) History: Reports: None Dermatologic History: Reports: None - Infectious Disease History Infectious Disease History: Reports: Chicken Pox - Past Surgical History HEENT Surgical History: Reports: Eye Surgery Male Surgical History: Reports: None Social & Family History - Family History Family Medical History: Noncontributory - Caffeine Use Caffeine Use: Reports: Coffee ED ROS GENERAL - Review of Systems Review Of Systems: See Below Free Text/Narrative/Comment: General: No fever. Skin: No rash. Eyes: No vision problems. ENT: No sore throat. Neck: No neck stiffness. Respiratory: No shortness of breath. Cardiac: Per HPI Gastrointestinal: No nausea, vomiting or abdominal pain. Urinary: No dysuria. Musculoskeletal: No myalgias/arthralgias. Neurologic: No headache. ED EXAM, GENERAL - Physical Exam Exam: See Below Free Text/Narrative:: General Appearance: No acute distress, appears comfortable Skin: No rash HEENT: Normocephalic/atraumatic, sclera anicteric, mucous membranes moist Neck: Normal range of motion Chest and Lungs: Bilateral breath sounds, clear to auscultation Cardiovascular: Regular rate and rhythm, no murmur Chest Wall: There is focal tenderness in the midclavicular line at the costal chondral junction of the ninth rib palpation there reproduces his pain Abdomen: Soft, non-tender Back: Normal Musculoskeletal: No edema or tenderness Neurologic: Awake, alert, no obvious deficits, moving all extremities Psychiatric: Appropriate, cooperative Course - Vital Signs Last Recorded V/S: Last Vital Signs Temp 96.8 F L 09/15/19 10:14 Pulse 80 09/15/19 10:14 Resp 20 09/15/19 10:14 BP 155/71 H 09/15/19 10:14 Pulse Ox 92 L 09/15/19 10:14 - Orders/Labs/Meds Meds: Medications Discontinued Medications Generic Name Dose Route Start Last Admin Trade Name Freq PRN Reason Stop Dose Admin Lidocaine 700 mg 09/15/19 10:18 09/15/19 10:46 Lidoderm 5% TOP 09/15/19 10:19 700 mg ONETIME ONE Administration Departure - Departure Time of Disposition: 11:05 Disposition: Home, Self-Care 01 Condition: Good Clinical Impression: Costochondritis, acute - Discharge Information *PRESCRIPTION DRUG MONITORING PROGRAM REVIEWED*: Not Applicable *COPY OF PRESCRIPTION DRUG MONITORING REPORT IN PATIENT CATHERINE: Not Applicable Prescriptions: Lidocaine 5% [Lidoderm 5%] 1 patch TOP DAILY 14 Days #14 patch Instructions: Costochondritis, [id number] Referrals: Lenin Sommer MD [Primary Care Provider] - Forms: ED Department Discharge Additional Instructions: If you feel worse in the coming days or if you develop new symptoms since that shortness of breath, fever, abdominal pain, nausea or vomiting please see your doctor right away or return to the emergency department The following information is given to patients seen in the emergency department who are being discharged to home. This information is to outline your options for follow-up care. We provide all patients seen in our emergency department with a follow-up referral. The need for follow-up, as well as the timing and circumstances, are variable depending upon the specifics of your emergency department visit. If you don't have a primary care physician on staff, we will provide you with a referral. We always advise you to contact your personal physician following an emergency department visit to inform them of the circumstance of the visit and for follow-up with them and/or the need for any referrals to a consulting specialist. The emergency department will also refer you to a specialist when appropriate. This referral assures that you have the opportunity for follow-up care with a specialist. All of these measure are taken in an effort to provide you with optimal care, which includes your follow-up. Under all circumstances we always encourage you to contact your private physician who remains a resource for coordinating your care. When calling for follow-up care, please make the office aware that this follow-up is from your recent emergency room visit. If for any reason you are refused follow-up, please contact the [facility] Emergency Department at and asked to speak to the emergency department charge nurse.. Sepsis Event Note (ED) - Evaluation Sepsis Screening Result: No Definite Risk - Focused Exam Vital Signs: Vital Signs Temp Pulse Resp BP Pulse Ox 09/15/19 10:14 96.8 F L 80 20 155/71 H 92 L - Assessment/Plan Assessment:: 59-year-old male presenting with signs and symptoms that are most consistent with costochondritis. Multiple other etiologies were carefully considered. ACS carefully considered. However the clear trigger of the pain the reproducibility of the pain the lack of any secondary symptoms the clear focality of the pain all of this argues very strongly against ACS or primary cardiac process. Pericarditis myocarditis felt unlikely for similar reasons. Intra-abdominal pathology considered but the abdomen itself is completely benign and nontender and there were no GI symptoms. PE considered but there is no shortness of breath there is no hypoxia there is no tachycardia. And again the clear precipitating incident makes this less likely. Patient is also already on antiplatelets and has no lower extremity pain or swelling. Pneumonia considered felt very unlikely but x-rays pending pneumothorax considered and again x-ray pending. Patient drove here we will start with a Lidoderm patch and could add tramadol for pain if needed. Small intercostal muscle tear possible as well. If chest x-ray is unremarkable then would discharge with prescription for Lidoderm patch to picker machine operator tomorrow as well as tramadol. Patient is x-ray is normal. Patient somewhat more comfortable now. Prescription written for the lidocaine patches but option for OTC discussed as well. Patient provided with short tramadol course as well.
--- NOTE | 2019-09-15 10:44 | CR ---
INDICATION: Chest Pain TECHNIQUE: Chest 2 views. COMPARISON: None FINDINGS: Cardiomediastinal silhouette: Within normal limits. Lungs and pleural spaces: No focal consolidation. No pulmonary edema. No pleural effusion or pneumothorax. Bones and soft tissues: Within normal limits. IMPRESSION: No acute pulmonary process. Dictated by Marina Edwards MD @ 09/15/2019 10:43:01 AM Dictated by: Marina Edwards MD @ 09/15/2019 10:43:05 (Electronically Signed)
[2019-09-15 12:30] VITALS: BP 124/71; PULSE 72
== END 2019-09-15 11:25 | disposition home or self-care (01) ==
LOC: MW.ED 09:58
DX: M94.0 Chondrocostal junction syndrome [Tietze] (principal); I10 Essential (primary) hypertension; I25.2 Old myocardial infarction; Z79.82 Long term (current) use of aspirin; Z79.02 Long term (current) use of antithrombotics/antiplatelets; Z79.899 Other long term (current) drug therapy
CPT/HCPCS: 71046; 99283; A9270

== ENCOUNTER 2020-10-07 02:19 | Emergency (ER) | payer BC ==
--- NOTE | 2020-10-07 02:26 | EDM.PDOC ---
ED HPI GENERAL MEDICAL PROBLEM - General Stated Complaint: EXTREME RIB PAIN AFTER A HARD COUGH Time Seen by Provider: 10/07/20 02:25 Source of Information: Reports: Patient History Limitations: Reports: No Limitations - History of Present Illness INITIAL COMMENTS - FREE TEXT/NARRATIVE: 60-year-old male past medical history sarcoidosis, CAD status post VA presents for left anterior inferior rib pain. Patient notes that he presented to the emergency department roughly a year ago with very similar symptoms but on the right side. Patient notes that he has a chronic productive cough and was coughing heavily 2 days ago and felt something pop and is ever since had pain in his left inferior anterior ribs. He denies any worsening of chronic shortness of breath. He denies any fevers. Left Trunk Pain Score (Numeric/FACES): 1 - Related Data Allergies Allergy/AdvReac Type Severity Reaction Status Date / Time No Known Allergies Allergy Verified 10/07/20 02:26 Home Meds: Home Meds Aspirin 81 mg PO BRK 10/12/16 [History] Clopidogrel Bisulfate [Plavix] 75 mg PO DAILY 10/23/16 [History] Losartan [Cozaar] 25 mg PO DAILY 10/23/16 [History] Albuterol Sulfate [Proair Hfa] 1 puff INH ASDIRECTED PRN 10/24/16 [History] Metoprolol Succinate [Toprol XL] 12.5 mg PO DAILY #30 tab.er 10/24/16 [Rx] Nitroglycerin 0.4 mg SL ASDIRECTED PRN 10/24/16 [History] prednisoLONE Acetate [Prednisolone Acetate] 1 drop OP DAILY 10/24/16 [History] Lidocaine 5% [Lidoderm 5%] 1 patch TOP DAILY 14 Days #14 patch 09/15/19 [Rx] Past Medical History HEENT History: Reports: Other (See Below) Other HEENT History: Corneal Problem Cardiovascular History: Reports: High Cholesterol, Hypertension, [place], Stents Respiratory History: Reports: COPD, Other (See Below) Other Respiratory History: sarcoidosis Gastrointestinal History: Reports: None Genitourinary History: Reports: None Other Musculoskeletal History: carpel tunnel Neurological History: Reports: None Psychiatric History: Reports: None Endocrine/Metabolic History: Reports: None Hematologic History: Reports: None Oncologic (Cancer) History: Reports: None Dermatologic History: Reports: None - Infectious Disease History Infectious Disease History: Reports: Chicken Pox - Past Surgical History HEENT Surgical History: Reports: Eye Surgery Male Surgical History: Reports: None Social & Family History - Family History Family Medical History: No Pertinent Family History - Caffeine Use Caffeine Use: Reports: Coffee ED ROS GENERAL - Review of Systems Review Of Systems: Comprehensive ROS is negative, except as noted in HPI. ED EXAM, GENERAL - Physical Exam Exam: See Below Exam Limited By: No Limitations General Appearance: Alert, WD/WN, No Apparent Distress Ears: Hearing Grossly Normal Throat/Mouth: Normal Voice, No Airway Compromise Head: Atraumatic, Normocephalic Neck: Normal Inspection Respiratory/Chest: No Respiratory Distress, Lungs Clear, Normal Breath Sounds, No Accessory Muscle Use, Other (+TTP of left anterior inferior chest wall) Cardiovascular: Normal Peripheral Pulses, Regular Rate, Rhythm Extremities: Normal Inspection Neurological: Alert, Normal Cognition, Normal Gait Psychiatric: Normal Affect, Normal Mood Skin Exam: Warm, Dry, Intact, Normal Color Course - Vital Signs Last Recorded V/S: Last Vital Signs Temp 97.8 F 10/07/20 02:27 Pulse 81 10/07/20 02:27 Resp 20 10/07/20 02:27 BP 140/87 10/07/20 02:27 Pulse Ox 94 L 10/07/20 02:27 - Orders/Labs/Meds Meds: Medications Discontinued Medications Generic Name Dose Route Start Last Admin Trade Name Mojgan PRN Reason Stop Dose Admin Cyclobenzaprine HCl 10 mg 10/07/20 02:35 10/07/20 02:40 Cyclobenzaprine 10 Mg Tab PO 10/07/20 02:36 10 mg ONETIME ONE Administration Lidocaine 700 mg 10/07/20 02:35 10/07/20 02:40 Lidocaine 5% 700 Mg Patch TOP 10/07/20 02:36 700 mg ONETIME ONE Administration Oxycodone/Acetaminophen 1 tab 10/07/20 02:35 10/07/20 02:41 Acetaminophen/Oxycodone 325-5 Mg Tab PO 10/07/20 02:36 1 tab ONETIME ONE Administration - Re-Assessments/Exams Free Text/Narrative Re-Assessment/Exam: 10/07/20 02:38 We will get chest x-ray to assess for rib fracture and to assess lungs. Low suspicion of ACS, pulmonary embolism given the inciting event and reproducible pain. Patient responded well to Lidoderm patch in the past so will trial Lidoderm patch. Will give Percocet and Flexeril. 10/07/20 03:04 X-ray imaging is unremarkable. Will discharge patient with Lidoderm and Percocet. Departure - Departure Time of Disposition: 03:04 Disposition: Home, Self-Care 01 Condition: Good Clinical Impression: Costochondritis - Discharge Information Instructions: Costochondritis, [id number] Referrals: Lenin Sommer MD [Primary Care Provider] - Additional Instructions: Please follow-up with your primary care physician particularly if symptoms or not improving. The following information is given to patients seen in the emergency department who are being discharged to home. This information is to outline your options for follow-up care. We provide all patients seen in our emergency department with a follow-up referral. The need for follow-up, as well as the timing and circumstances, are variable depending upon the specifics of your emergency department visit. If you don't have a primary care physician on staff, we will provide you with a referral. We always advise you to contact your personal physician following an emergency department visit to inform them of the circumstance of the visit and for follow-up with them and/or the need for any referrals to a consulting specialist. The emergency department will also refer you to a specialist when appropriate. This referral assures that you have the opportunity for follow-up care with a specialist. All of these measure are taken in an effort to provide you with optimal care, which includes your follow-up. Under all circumstances we always encourage you to contact your private physician who remains a resource for coordinating your care. When calling for follow-up care, please make the office aware that this follow-up is from your recent emergency room visit. If for any reason you are refused follow-up, please contact the [facility] Emergency Department at and asked to speak to the emergency department charge nurse. Please follow up with your primary care physician. If you do not have a primary care physician, see below: [facility] [address] [place] [address] [id number] [address] [facility] [address] [place] [address], [place] [address] Sepsis Event Note (ED) - Focused Exam Vital Signs: Vital Signs Temp Pulse Resp BP Pulse Ox 10/07/20 02:27 97.8 F 81 20 140/87 94 L
[2020-10-07 02:30] VITALS: BP 140/87; PULSE 81
[2020-10-07] MEDS ORDERED: Lidocaine 5% 700 MG Patch TOP ONE (02:35)
[2020-10-07] MEDS ORDERED: Cyclobenzaprine 10 MG Tab PO ONE (02:35)
[2020-10-07] MEDS ORDERED: Acetaminophen/oxyCODONE 325-5 MG Tab PO ONE (02:35)
--- NOTE | 2020-10-07 03:02 | CR ---
INDICATION: [place] "pop" in left inferior ribs anteriorly with cough TECHNIQUE: Chest radiograph 1 view on 2 films COMPARISON: 09/15/2019 FINDINGS: Mediastinum: Small calcified right paratracheal and hilar lymph nodes are present from prior granulomatous disease. The heart silhouette is normal in size and morphology. Lung: Bilateral pulmonary hyperinflation and lucency noted, suggestive of moderate, stable pulmonary emphysema. There is a 6 mm nodule present in the right lateral lung base, unchanged from prior study. Stable right apical pleural thickening is noted. No pneumothorax is identified. Bone and Soft tissue: Unremarkable for age. IMPRESSIONS: 1. Bilateral pulmonary hyperinflation and lucency noted, suggestive of moderate, stable pulmonary emphysema. 2. There is a 6 mm nodule present in the right lateral lung base, unchanged from prior study. Dictated by Jamil Storey MD @ 10/07/2020 3:00:55 AM Dictated by: Jamil Storey MD @ 10/07/2020 03:01:04 (Electronically Signed)
== END 2020-10-07 03:11 | disposition home or self-care (01) ==
LOC: MW.ED 02:19
DX: M94.0 Chondrocostal junction syndrome [Tietze] (principal); J44.9 Chronic obstructive pulmonary disease, unspecified; I10 Essential (primary) hypertension; E78.00 Pure hypercholesterolemia, unspecified; I25.2 Old myocardial infarction; Z79.82 Long term (current) use of aspirin; Z79.02 Long term (current) use of antithrombotics/antiplatelets; Z95.5 Presence of coronary angioplasty implant and graft; Z79.899 Other long term (current) drug therapy
CPT/HCPCS: 71045; 99283; A9270

== ENCOUNTER 2021-02-10 20:56 | Emergency (ER) | payer BC ==
--- NOTE | 2021-02-10 21:24 | EDM.PDOC ---
<Hans Doyle - Last Filed: 02/11/21 02:51> ED HPI GENERAL MEDICAL PROBLEM - General Chief Complaint: Back Pain or Injury Stated Complaint: RIB AND BACK PAIN Time Seen by Provider: 02/10/21 21:16 - History of Present Illness INITIAL COMMENTS - FREE TEXT/NARRATIVE: Patient was signed out to me by Laurie Ruffin NP pending imaging at 10 PM. I promptly performed a detailed physical examination and my examination was done after ED treatments were initiated by the signout provider. Patient has been under the care of previous provider up until this point. Patient reported mild improvement in his pain however he still had pain on the right side of his posterior chest wall. There was no overlying skin changes or abnormality. The radiological images were viewed by myself along with reading the report from the radiologist. Lumbar spine x-ray does not reveal any fracture or dislocation. Ribs with chest x-ray does not reveal any fracture or dislocation. No acute cardiopulmonary process. After imaging I did discuss the results with the patient. At this time I did offer the patient a Lidoderm patch however he stated that this does not work. I did discuss them that I would provide him a prescription for a muscle relaxer by the name of Robjoshua. He is to use [id number] lidocaine or Lidoderm Derm or Voltaren cream. He is to follow-up with his primary care physician. He was amenable to this plan had no further questions. He was given strict return precautions. DISPOSITION: The patient was discharged home in stable condition. The patient will follow up with primary care physician in 3 to 5 days CONDITION: Fair PROCEDURES: None FINAL IMPRESSION(S)/DIAGNOSES: 1. Acute right-sided costochondritis Hans Doyle M.D. - Related Data Allergies Allergy/AdvReac Type Severity Reaction Status Date / Time No Known Allergies Allergy Verified 02/10/21 21:33 Home Meds: Home Meds Aspirin 81 mg PO BRK 10/12/16 [History] Clopidogrel Bisulfate [Plavix] 75 mg PO DAILY 10/23/16 [History] Losartan [Cozaar] 25 mg PO DAILY 10/23/16 [History] Albuterol Sulfate [Proair Hfa] 1 puff INH ASDIRECTED PRN 10/24/16 [History] Metoprolol Succinate [Toprol XL] 12.5 mg PO DAILY #30 tab.er 10/24/16 [Rx] Nitroglycerin 0.4 mg SL ASDIRECTED PRN 10/24/16 [History] prednisoLONE Acetate [Prednisolone Acetate] 1 drop OP DAILY 10/24/16 [History] Lidocaine 5% [Lidoderm 5%] 1 patch TOP DAILY PRN 02/10/21 [History] methocarbamoL [Methocarbamol] 1,500 mg PO TID #42 tablet 02/10/21 [Rx] ED ROS GENERAL - Review of Systems Review Of Systems: See Below ED EXAM,LOWER BACK PAIN/INJURY - Physical Exam Exam: See Below Departure - Departure Time of Disposition: 23:32 Disposition: Home, Self-Care 01 Condition: Fair Clinical Impression: Costochondritis - Discharge Information Prescriptions: methocarbamoL [Methocarbamol] 1,500 mg PO TID #42 tablet Instructions: Costochondritis, [id number], Costochondritis Referrals: Lenin Sommer MD [Primary Care Provider] - Forms: ED Department Discharge Additional Instructions: You were evaluated today on an emergent basis. At this time all of your images were normal. I do believe this is secondary to inflammation along the ribs. I recommend use Tylenol and Motrin alternating in addition to the modalities as discussed below. If you have any worsening symptoms such as cough, chest pain, passing out I would like you to return to the emergency department. Otherwise please follow-up with primary care physician within 3 to 5 days Please use: Tylenol 500-1000mg every 6 hours (DO NOT TAKE MORE THAN 4000mg in 1 day) Ibuprofen 400mg every 6 hours (Take with food as it can cause ulcers, GI upset) Example schedule: 8:00 AM (Tylenol 500-1000mg) 11:00 AM (Ibuprofen 400mg) 2:00 PM (Tylenol 500-1000mg) 5:00 PM (Ibuprofen 400mg) In addition to Tylenol and Motrin you may use over the counter creams such as Voltaren Cream or Lidocaine Cream (Lidoderm) as needed 4 times a day for symptomatic relief. Ice the area 20 minutes 4 times per day The patient is informed of any results of their evaluation and diagnostic workup and all questions are answered. They are given discharge instructions and return precautions. The patient is stable for discharge. The patient states they understand and agree with the plan and that they will return if their symptoms get worse or if they have any new concerns. The following information is given to patients seen in the emergency department who are being discharged to home. This information is to outline your options for follow-up care. We provide all patients seen in our emergency department with a follow-up referral. The need for follow-up, as well as the timing and circumstances, are variable depending upon the specifics of your emergency department visit. If you don't have a primary care physician on staff, we will provide you with a referral. We always advise you to contact your personal physician following an emergency department visit to inform them of the circumstance of the visit and for follow-up with them and/or the need for any referrals to a consulting specialist. The emergency department will also refer you to a specialist when appropriate. This referral assures that you have the opportunity for follow-up care with a specialist. All of these measure are taken in an effort to provide you with optimal care, which includes your follow-up. Under all circumstances we always encourage you to contact your private physician who remains a resource for coordinating your care. When calling for follow-up care, please make the office aware that this follow-up is from your recent emergency room visit. If for any reason you are refused follow-up, please contact the [facility] Emergency Department at and asked to speak to the emergency department charge nurse. <Uche Ruffin E - Last Filed: 02/11/21 20:22> ED HPI GENERAL MEDICAL PROBLEM - General Source of Information: Reports: Patient History Limitations: Reports: No Limitations - History of Present Illness INITIAL COMMENTS - FREE TEXT/NARRATIVE: HISTORY AND PHYSICAL: History of present illness: Patient is a 60-year-old male who presents to the emergency room with complaints of lumbar back pain that radiates into his right posterior rib. Approximately a week ago he fell out of bed but did not hit his head or have any loss of consciousness. The following morning he had some lumbar back pain and right posterior rib pain. He has gone to the chiropractor twice for adjustment, today after seeing the chiropractor he was informed to come to the emergency room as he "has a rib out of place". He states he has been using icy hot and [id number] medication without much relief. Patient denies any fever, chills, headache, change in vision, syncope or near syncope. Denies any chest pain, shortness of breath or cough. Denies any GI or symptoms. He denies any numbness, tingling, saddle paresthesia or weakness. Denies any urinary or fecal incontinence. Review of systems: As per history of present illness and below otherwise all systems reviewed and negative. Past medical history: As per history of present illness and as reviewed below otherwise noncontributory. Surgical history: As per history of present illness and as reviewed below otherwise noncontributory. Social history: See social history for further information Family history: As per history of present illness and as reviewed below otherwise noncontributory. Physical exam: General: Well developed and well nourished 60-year-old male. Alert and orientated x 3. Nontoxic in appearance and in no acute distress. Vital signs are stable and have been reviewed by me. Nursing notes were reviewed. HEENT: Atraumatic, normocephalic, pupils equal and reactive bilaterally, negative for conjunctival pallor or scleral icterus, mucous membranes moist, trachea midline. No drooling or trismus noted. No meningeal signs. No hot potato voice noted. Lungs: Clear to auscultation bilaterally. No wheezes, rales, or rhonchi. Chest tender to the right posterior distal rib. Normal work of breathing, no accessory muscles used. Heart: S1S2, regular rate and rhythm Abdomen: Soft, nondistended, nontender. Negative for masses or costovertebral tenderness. C-spine/Back: No pinpoint vertebral tenderness upon palpation. No crepitus, step -offs or obvious deformities. Paraspinous muscular tenderness to the lumbar region going into the right distal posterior rib. Patient is ambulatory into the emergency room without difficulty or deficit. Able to rock back on heels and walk on toes. Denies any urinary or fecal incontinence. Denies any numbness, tingling or saddle paresthesia. No concerns of serious infection, fracture or cord compression, or cauda equina syndrome. Deep tendon reflexes brisk bilaterally. Skin: Intact, warm, dry. No lesions or rashes noted. Hematologic: No petechiae or purpra. Mucosa appropriate color and normal nail bed color and refill. Extremities: Moves all extremities per self without difficulty or deficits, negative for cords or calf pain. Neurovascular unremarkable. Neuro: Awake, alert, oriented. Cranial nerves II through XII unremarkable. Cerebellum unremarkable. Motor and sensory unremarkable throughout. Exam nonfocal. Psychiatric: Mood and affect are appropriate. Normal thought process. Answering questions appropriately. Please note that the patient was seen and evaluated during the 2019 SARS-CoV-2 novel coronavirus pandemic period. Community viral transmission is ongoing at time of this encounter and the emergency department is operating under pandemic response procedures. Medical Decision Making: Patient is a 60-year-old male who presents to the emergency room with complaints of lumbar back pain and right posterior rib pain post fall. Patient has been attempting to use icy hot and [id number] Tylenol and ibuprofen without much relief. He is also seeing the chiropractor twice without any improvement. Today was encouraged by his chiropractor to come to the emergency room as he had a rib out of place. Patient does have some paraspinous muscular tenderness bilaterally and right rib tenderness. He has no neurological deficits. Will obtain an x-ray. Awaiting imagining results. Dr Doyle has taken over on this patient. Will disposition patient appropriately. Diagnostics: Lumbar spine x-ray, chest x-ray with right rib detail Therapeutics: Michael Impression: Lumbago Definitive disposition and diagnosis as appropriate pending reevaluation and review of above. Middle Back Pain Score (Numeric/FACES): 3 Past Medical History HEENT History: Reports: Other (See Below) Other HEENT History: Corneal Problem Cardiovascular History: Reports: High Cholesterol, Hypertension, [place], Stents Respiratory History: Reports: COPD, Other (See Below) Other Respiratory History: sarcoidosis Gastrointestinal History: Reports: None Genitourinary History: Reports: None Other Musculoskeletal History: carpel tunnel Neurological History: Reports: None Psychiatric History: Reports: None Endocrine/Metabolic History: Reports: None Hematologic History: Reports: None Oncologic (Cancer) History: Reports: None Dermatologic History: Reports: None - Infectious Disease History Infectious Disease History: Reports: Chicken Pox - Past Surgical History HEENT Surgical History: Reports: Eye Surgery Male Surgical History: Reports: None Social & Family History - Family History Family Medical History: No Pertinent Family History - Caffeine Use Caffeine Use: Reports: Coffee ED ROS GENERAL - Review of Systems Review Of Systems: Comprehensive ROS is negative, except as noted in HPI. Course - Vital Signs Last Recorded V/S: Last Vital Signs Temp 98.2 F 02/10/21 21:25 Pulse 63 02/10/21 23:46 Resp 20 02/10/21 23:46 BP 136/83 02/10/21 23:46 Pulse Ox 97 02/10/21 23:46 - Orders/Labs/Meds Meds: Medications Discontinued Medications Generic Name Dose Route Start Last Admin Trade Name Gurdeepq PRN Reason Stop Dose Admin Hydrocodone Bitart/Acetaminophen 1 tab 02/10/21 21:25 02/10/21 21:34 Acetaminophen/Hydrocodone 325-5 Mg Tab PO 02/10/21 21:26 1 tab ONETIME ONE Administration Lidocaine 700 mg 02/10/21 23:21 02/10/21 23:31 Lidocaine 5% 700 Mg Patch TRDERM 02/10/21 23:22 700 mg ONETIME ONE Administration
[2021-02-10] MEDS ORDERED: Acetaminophen/HYDROcodone 325-5 MG Tab PO ONE (21:25)
--- NOTE | 2021-02-10 23:05 | CR ---
Indication: Back pain, injury 1 week ago. Technique: Two views Comparison: None Findings: Bones: Alignment is normal. No fractures or bone lesions. Disc spaces: Facet hypertrophy at L4-5 and L5-S1 with anterolisthesis of L4-5 measuring 4 millimeters. T11-12 anterior osteophytes. Soft tissues: Atherosclerosis. Dictated by Marcel Aguirre MD @ 02/10/2021 11:04:29 PM (Electronically Signed)
--- NOTE | 2021-02-10 23:14 | CR ---
INDICATION: Back pain after falling out of bed TECHNIQUE: Chest and right ribs 3 views. COMPARISON: Chest x-ray 10/07/2020 FINDINGS: Cardiovascular and mediastinum: Mild cardiomegaly with atherosclerotic calcification. Lungs and pleural spaces: Lungs are clear. No sign of infiltrate or mass. No sign of pleural effusion. No pneumothorax. Bones and soft tissues: Detailed oblique images of the right ribs demonstrate no fractures or bone lesions. IMPRESSION: No evidence of fracture or pneumothorax. Mild cardiomegaly. Dictated by Marcel Aguirre MD @ 02/10/2021 11:12:34 PM (Electronically Signed)
[2021-02-10] MEDS ORDERED: Lidocaine 5% 700 MG Patch TRDERM ONE (23:21)
[2021-02-10 23:47] VITALS: BP 136/83; PULSE 63
== END 2021-02-10 23:47 | disposition home or self-care (01) ==
LOC: MW.ED 20:56
DX: M94.0 Chondrocostal junction syndrome [Tietze] (principal); M54.50 Low back pain, unspecified; E78.00 Pure hypercholesterolemia, unspecified; I10 Essential (primary) hypertension; I25.2 Old myocardial infarction; J44.9 Chronic obstructive pulmonary disease, unspecified; Z79.82 Long term (current) use of aspirin; Z79.02 Long term (current) use of antithrombotics/antiplatelets; Z79.899 Other long term (current) drug therapy
CPT/HCPCS: 71101; 72100; 99283; A9270

== ENCOUNTER 2021-05-28 21:58 | Emergency (ER) | payer BC ==
[2021-05-28] MEDS ORDERED: Lidocaine 1% with EPINEPHrine 1:100,000 20 ML MDV INJECT ONE (22:13)
[2021-05-28] MEDS ORDERED: Lidocaine 1% with EPINEPHrine 1:100,000 10 ML MDV INJECT ONE (22:23)
[2021-05-28 22:27] VITALS: BP 105/84; PULSE 87
[2021-05-28] MEDS ORDERED: Cephalexin 500 MG Cap PO ONE (22:36)
[2021-05-28] MEDS ORDERED: Sulfamethoxazole/Trimethoprim 800-160 MG Tab PO ONE (22:36)
== END 2021-05-28 22:59 | disposition home or self-care (01) ==
LOC: MW.ED 21:58
DX: L03.116 Cellulitis of left lower limb (principal); L02.416 Cutaneous abscess of left lower limb; E78.00 Pure hypercholesterolemia, unspecified; I10 Essential (primary) hypertension; I25.2 Old myocardial infarction; J44.9 Chronic obstructive pulmonary disease, unspecified; Z79.82 Long term (current) use of aspirin; Z79.02 Long term (current) use of antithrombotics/antiplatelets; Z79.899 Other long term (current) drug therapy
CPT/HCPCS: 10060; 99283; A9270

== ENCOUNTER 2022-10-20 13:55 | Emergency (ER) | payer BC ==
[2022-10-20] MEDS ORDERED: Albuterol/Ipratropium 3.0-0.5 MG/3 ML Neb Soln NEB ONE (14:12)
[2022-10-20] MEDS ORDERED: Sodium Chloride 0.9% 10 ML Syringe FLUSH PRN (14:14)
[2022-10-20] MEDS ORDERED: Sodium Chloride 0.9% 2.5 ML Syringe FLUSH PRN (14:14)
[2022-10-20] MEDS ORDERED: methylPREDNISolone Sodium Succinate 125 MG/2 ML SDV IVPUSH ONE (14:15)
[2022-10-20 14:54] LABS: BASOPHILS PERCENT AUTO 0.3 % (0.0-1.5); EOSINOPHILS ABSOLUTE AUTO 0.2 K/uL (0.0-0.7); EOSINOPHILS PERCENT AUTO 2.3 % (0.0-7.0); HEMATOCRIT 47.9 % (38.0-50.0); HEMOGLOBIN 15.6 g/dL (13.0-17.0); LYMPHOCYTES ABSOLUTE AUTO 0.9 K/uL (0.6-2.4); LYMPHOCYTES PERCENT AUTO 11.1 % (16.0-40.0); MEAN CORPUSCULAR HEMOGLOBIN 32.9 pg (27.0-32.0); MEAN CORPUSCULAR HGB CONC 32.6 g/dL (31.0-37.0); MEAN CORPUSCULAR VOLUME 101.1 fL (80.0-98.0); MONOCYTES ABSOLUTE AUTO 0.7 K/uL (0.0-0.8); MONOCYTES PERCENT AUTO 9.2 % (0.0-15.0); NEUTROPHILS ABSOLUTE AUTO 6.1 K/uL (1.4-5.7); NEUTROPHILS PERCENT AUTO 77.1 % (48.0-80.0); NRBC ABSOLUTE 0 K/uL; PLATELET COUNT,PLT 169 K/uL (150-400); RED BLOOD CELL COUNT 4.74 M/uL (4.50-5.90); WHITE BLOOD CELL COUNT,WBC 7.92 K/uL (4.0-11.0)
[2022-10-20 15:11] VITALS: BP 136/77; PULSE 64
[2022-10-20 16:12] LABS: A/G RATIO 1.1 (0.9-1.6); ALBUMIN 3.8 g/dL (3.4-5.0); BILIRUBIN TOTAL 0.7 mg/dL (0.2-1.0); CALCIUM 8.7 mg/dL (8.5-10.1); CARBON DIOXIDE,CO2 31.5 mmol/L (21.0-32.0); CREATININE 1.1 mg/dL (0.8-1.3); EST CRCL DRUG DOSING (CG) 68.74 mL/min; PROTEIN TOTAL,TP 7.2 g/dL (6.4-8.2)
== END 2022-10-20 16:43 | disposition home or self-care (01) ==
LOC: MW.ED 13:55
DX: J44.1 Chronic obstructive pulmonary disease with (acute) exacerbation (principal); I10 Essential (primary) hypertension; E78.00 Pure hypercholesterolemia, unspecified; I25.2 Old myocardial infarction; Z79.899 Other long term (current) drug therapy; Z20.822 Contact with and (suspected) exposure to COVID-19; Z79.82 Long term (current) use of aspirin; Z79.02 Long term (current) use of antithrombotics/antiplatelets; Z88.8 Allergy status to other drugs, medicaments and biological substances; Z95.5 Presence of coronary angioplasty implant and graft
CPT/HCPCS: 36415; 71045; 80053; 83880; 84443; 84484; 85025; 87635; 93005; 96374; 99285; J2930; J3490; 93010; 99284; J7620-GY; U0002

== ENCOUNTER 2022-12-03 17:39 | Observation (INO) | payer BC ==
[2022-12-03] MEDS ORDERED: Albuterol/Ipratropium 3.0-0.5 MG/3 ML Neb Soln NEB ONE ×2 (18:19→20:56)
[2022-12-03] MEDS ORDERED: methylPREDNISolone Sodium Succinate 125 MG/2 ML SDV IVPUSH ONE (18:19)
[2022-12-03 18:52] LABS: BASE EXCESS VENOUS 3.8 (-2.0-3.0); BASOPHILS PERCENT AUTO 0.5 % (0.0-1.5); EOSINOPHILS ABSOLUTE AUTO 0.4 K/uL (0.0-0.7); EOSINOPHILS PERCENT AUTO 5.7 % (0.0-7.0); HEMATOCRIT 47.5 % (38.0-50.0); HEMOGLOBIN 15.5 g/dL (13.0-17.0); MEAN CORPUSCULAR HEMOGLOBIN 32.9 pg (27.0-32.0); MEAN CORPUSCULAR HGB CONC 32.6 g/dL (31.0-37.0); MEAN CORPUSCULAR VOLUME 100.8 fL (80.0-98.0); MONOCYTES ABSOLUTE AUTO 0.8 K/uL (0.0-0.8); MONOCYTES PERCENT AUTO 9.8 % (0.0-15.0); NEUTROPHILS ABSOLUTE AUTO 5.5 K/uL (1.4-5.7); NRBC ABSOLUTE 0 K/uL; PH,VENOUS 7.39 (7.31-7.41); PLATELET COUNT,PLT 187 K/uL (150-400); RED BLOOD CELL COUNT 4.71 M/uL (4.50-5.90); WHITE BLOOD CELL COUNT,WBC 7.75 K/uL (4.0-11.0)
[2022-12-03 19:19] LABS: A/G RATIO 1.2 (0.9-1.6); ALANINE AMINOTRANSFERASE,ALT 30 IU/L (14-63); ALKALINE PHOSPHATASE 61 U/L (46-116); ASPARTATE AMNIOTRANSFERASE,AST 19 IU/L (15-37); BILIRUBIN TOTAL 0.6 mg/dL (0.2-1.0); BLOOD UREA NITROGEN,BUN 20 mg/dL (7.0-18.0); C-REACTIVE PROTEIN <0.20 mg/dL (0.00-0.90); CARBON DIOXIDE,CO2 31.5 mmol/L (21.0-32.0); CHLORIDE,CL 99 mmol/L (98-107); CREATININE 1.1 mg/dL (0.8-1.3); EST CRCL DRUG DOSING (CG) 68.74 mL/min; GLUCOSE RANDOM 95 mg/dL (74-106); MAGNESIUM 2.1 mg/dL (1.8-2.4); PROTEIN TOTAL,TP 7.4 g/dL (6.4-8.2); SODIUM,NA 135 mmol/L (136-148)
[2022-12-03 19:20] LABS: ESTIMATED GFR 75 mL/min (>60)
[2022-12-03] MEDS ORDERED: cefTRIAXone 1 GM in Sodium Chloride 0.9% 50 ML IV ONE (20:56)
[2022-12-03] MEDS ORDERED: Nitroglycerin 0.4 MG Tab.SL SL PRN (23:45)
[2022-12-04] MEDS ORDERED: Albuterol 8 GM Inhaler INH PRN (00:06)
[2022-12-04] MEDS: Albuterol/Ipratropium 3.0-0.5 MG/3 ML Neb Soln NEB SCH ×3 (02:24→11:21)
[2022-12-04 06:03] LABS: HEMATOCRIT 47.9 % (38.0-50.0); HEMOGLOBIN 15.4 g/dL (13.0-17.0); LYMPHOCYTES ABSOLUTE AUTO 0.3 K/uL (0.6-2.4); LYMPHOCYTES PERCENT AUTO 3.4 % (16.0-40.0); MEAN CORPUSCULAR HEMOGLOBIN 32.4 pg (27.0-32.0); MEAN CORPUSCULAR HGB CONC 32.2 g/dL (31.0-37.0); MEAN CORPUSCULAR VOLUME 100.6 fL (80.0-98.0); MONOCYTES ABSOLUTE AUTO 0.1 K/uL (0.0-0.8); MONOCYTES PERCENT AUTO 1.2 % (0.0-15.0); NEUTROPHILS ABSOLUTE AUTO 7.4 K/uL (1.4-5.7); NEUTROPHILS PERCENT AUTO 95.4 % (48.0-80.0); NRBC ABSOLUTE 0 K/uL; PLATELET COUNT,PLT 190 K/uL (150-400); RED BLOOD CELL COUNT 4.76 M/uL (4.50-5.90)
[2022-12-04 06:22] LABS: CALCIUM 8.9 mg/dL (8.5-10.1); CREATININE 1.2 mg/dL (0.8-1.3); EST CRCL DRUG DOSING (CG) 63.01 mL/min; POTASSIUM,K 4.5 mmol/L (3.5-5.1)
[2022-12-04] MEDS ORDERED: Clopidogrel 75 MG Tab PO SCH (09:00)
[2022-12-04] MEDS ORDERED: methylPREDNISolone Sodium Succinate 40 MG/1 ML SDV IVPUSH SCH (09:00)
[2022-12-04] MEDS ORDERED: Aspirin 81 MG Tab.Chew PO SCH (09:00)
[2022-12-04] MEDS ORDERED: Losartan 50 MG Tab PO SCH (09:00)
[2022-12-04] MEDS ORDERED: Acetaminophen 325 MG Tab PO ONE (11:09)
[2022-12-04 12:02] VITALS: BP 151/82; PULSE 100
[2022-12-04] MEDS ORDERED: Rosuvastatin 10 MG Tab PO SCH (21:00)
[2022-12-04] MEDS ORDERED: cefTRIAXone 1 GM in Sodium Chloride 0.9% 50 ML IV SCH (21:00)
== END 2022-12-04 14:30 | disposition home or self-care (01) ==
LOC: MW.ED 17:39 → MW.MS 20:55
PROVIDERS: ADMIT Internal Medicine; ATTEND Internal Medicine
DX: J44.1 Chronic obstructive pulmonary disease with (acute) exacerbation (principal); J96.01 Acute respiratory failure with hypoxia; I25.2 Old myocardial infarction; I10 Essential (primary) hypertension; E78.00 Pure hypercholesterolemia, unspecified; F17.210 Nicotine dependence, cigarettes, uncomplicated; Z20.822 Contact with and (suspected) exposure to COVID-19; Z95.818 Presence of other cardiac implants and grafts; Z88.8 Allergy status to other drugs, medicaments and biological substances; Z79.82 Long term (current) use of aspirin; Z79.899 Other long term (current) drug therapy; Z79.52 Long term (current) use of systemic steroids
CPT/HCPCS: 36415; 71045; 71045-26; 80048; 80053; 82803; 83735; 84484; 85025; 86140; 87040; 93005; 93010; 96374; 96375; 96376; 99284; 99285-25; A9270-GY; G0378; J0696; J2920; J2930; J3490; J7620-GY; U0002

== ENCOUNTER 2023-02-14 10:36 | Emergency (ER) | payer BC ==
[2023-02-14] MEDS ORDERED: methylPREDNISolone Sodium Succinate 125 MG/2 ML SDV IVPUSH ONE (10:46)
[2023-02-14] MEDS ORDERED: Albuterol/Ipratropium 3.0-0.5 MG/3 ML Neb Soln NEB ONE (10:46)
[2023-02-14 10:55] LABS: BASOPHILS ABSOLUTE AUTO 0.03 K/uL (0.00-0.20); BASOPHILS PERCENT AUTO 0.2 % (0.0-1.0); EOSINOPHILS ABSOLUTE AUTO 0.14 K/uL (0.00-0.45); HEMATOCRIT 45.5 % (42.0-52.0); HEMOGLOBIN 15.3 g/dL (14.0-18.0); IMMATURE GRAN ABSOLUTE AUTO 0.04 K/uL (0.00-0.05); IMMATURE GRAN PERCENT AUTO 0.3 % (0.0-0.4); LYMPHOCYTES ABSOLUTE AUTO 0.49 K/uL (1.00-4.80); LYMPHOCYTES PERCENT AUTO 3.5 % (24.0-44.0); MEAN CORPUSCULAR HEMOGLOBIN 33.2 pg (28.0-32.0); MEAN CORPUSCULAR HGB CONC 33.6 g/dL (32.0-36.0); MEAN CORPUSCULAR VOLUME 98.7 fL (83.0-99.0); MEAN PLATELET VOLUME 10.1 fL (9.4-12.4); MONOCYTES ABSOLUTE AUTO 1.06 K/uL (0.00-0.80); MONOCYTES PERCENT AUTO 7.6 % (0.0-8.0); NEUTROPHILS ABSOLUTE AUTO 12.12 K/uL (1.80-7.70); NEUTROPHILS PERCENT AUTO 87.4 % (41.0-71.0); PLATELET COUNT,PLT 166 K/uL (150-400); RED BLOOD CELL COUNT 4.61 M/uL (4.52-5.90); WHITE BLOOD CELL COUNT,WBC 13.88 K/uL (3.9-11.3)
[2023-02-14 10:57] LABS: BASE EXCESS VENOUS 4.7 (-2.0-3.0); PH,VENOUS 7.37 (7.31-7.41)
[2023-02-14 11:27] LABS: A/G RATIO 1.1 (0.9-1.6); ALBUMIN 3.8 g/dL (3.4-5.0); BILIRUBIN TOTAL 0.7 mg/dL (0.2-1.0); EST CRCL DRUG DOSING (CG) 75.61 mL/min; MAGNESIUM 1.9 mg/dL (1.8-2.4); POTASSIUM,K 4.3 mmol/L (3.5-5.1); PROTEIN TOTAL,TP 7.2 g/dL (6.4-8.2)
[2023-02-14 11:57] LABS: CORONAVIRUS COVID-19 NAA NEGATIVE (NEGATIVE); INFLUENZA A NAA NEGATIVE (NEGATIVE); INFLUENZA B NAA NEGATIVE (NEGATIVE)
[2023-02-14] MEDS ORDERED: Azithromycin 500 MG in Sodium Chloride 0.9% 250 ML IV ONE (12:03)
[2023-02-14 12:47] VITALS: BP 136/80
[2023-02-14 15:53] VITALS: PULSE 73
== END 2023-02-14 13:36 | disposition left against medical advice (07) ==
LOC: MW.ED 10:36
DX: J96.21 Acute and chronic respiratory failure with hypoxia (principal); J44.1 Chronic obstructive pulmonary disease with (acute) exacerbation; Z91.148 Patient's other noncompliance with medication regimen for other reason; Z20.822 Contact with and (suspected) exposure to COVID-19; I10 Essential (primary) hypertension; E78.00 Pure hypercholesterolemia, unspecified; I25.2 Old myocardial infarction; Z95.5 Presence of coronary angioplasty implant and graft; Z79.82 Long term (current) use of aspirin; Z79.899 Other long term (current) drug therapy; Z88.8 Allergy status to other drugs, medicaments and biological substances
CPT/HCPCS: 0240U; 36415; 71045; 80053; 82803; 83735; 83880; 84484; 85025; 93005; 96365; 96375; 99285; J0456; J2930; J7050; 93010; 99284; J7620-GY

== ENCOUNTER 2023-03-11 16:19 | Emergency (ER) | payer BC ==
[2023-03-11] MEDS ORDERED: Albuterol/Ipratropium 3.0-0.5 MG/3 ML Neb Soln ONE (16:21)
[2023-03-11] MEDS ORDERED: Albuterol/Ipratropium 3.0-0.5 MG/3 ML Neb Soln NEB ONE ×2 (16:31→17:09)
[2023-03-11] MEDS ORDERED: methylPREDNISolone Sodium Succinate 125 MG/2 ML SDV IM ONE (16:43)
[2023-03-11] MEDS ORDERED: Magnesium Sulfate/Water 2 GM in Premix Bag 1 BAG IV ONE (17:10)
[2023-03-11] MEDS ORDERED: Albuterol 0.083% 2.5 MG/3 ML Neb Soln NEB ONE (17:16)
[2023-03-11] MEDS ORDERED: Sodium Chloride 0.9% 1,000 ML IV ONE (17:16)
[2023-03-11 18:09] LABS: BASOPHILS ABSOLUTE AUTO 0.03 K/uL (0.00-0.20); BASOPHILS PERCENT AUTO 0.4 % (0.0-1.0); EOSINOPHILS ABSOLUTE AUTO 0.41 K/uL (0.00-0.45); EOSINOPHILS PERCENT AUTO 5.6 % (0.0-6.0); HEMATOCRIT 44.1 % (42.0-52.0); HEMOGLOBIN 14.3 g/dL (14.0-18.0); IMMATURE GRAN ABSOLUTE AUTO 0.02 K/uL (0.00-0.05); IMMATURE GRAN PERCENT AUTO 0.3 % (0.0-0.4); LYMPHOCYTES ABSOLUTE AUTO 0.76 K/uL (1.00-4.80); LYMPHOCYTES PERCENT AUTO 10.5 % (24.0-44.0); MEAN CORPUSCULAR HEMOGLOBIN 33.2 pg (28.0-32.0); MEAN CORPUSCULAR HGB CONC 32.4 g/dL (32.0-36.0); MEAN CORPUSCULAR VOLUME 102.3 fL (83.0-99.0); MEAN PLATELET VOLUME 9.7 fL (9.4-12.4); MONOCYTES ABSOLUTE AUTO 0.72 K/uL (0.00-0.80); MONOCYTES PERCENT AUTO 9.9 % (0.0-8.0); NEUTROPHILS ABSOLUTE AUTO 5.33 K/uL (1.80-7.70); NEUTROPHILS PERCENT AUTO 73.3 % (41.0-71.0); PLATELET COUNT,PLT 159 K/uL (150-400); RED BLOOD CELL COUNT 4.31 M/uL (4.52-5.90); WHITE BLOOD CELL COUNT,WBC 7.27 K/uL (3.9-11.3)
[2023-03-11 18:31] LABS: ALBUMIN 3.3 g/dL (3.4-5.0); BILIRUBIN TOTAL 0.4 mg/dL (0.2-1.0); CALCIUM 8.7 mg/dL (8.5-10.1); CARBON DIOXIDE,CO2 34.9 mmol/L (21.0-32.0); CREATININE 1.4 mg/dL (0.8-1.3); EST CRCL DRUG DOSING (CG) 53.31 mL/min; MAGNESIUM 2.5 mg/dL (1.8-2.4); POTASSIUM,K 4.2 mmol/L (3.5-5.1); PROTEIN TOTAL,TP 6.5 g/dL (6.4-8.2)
[2023-03-11 19:06] LABS: CORONAVIRUS COVID-19 NAA NEGATIVE (NEGATIVE); INFLUENZA A NAA NEGATIVE (NEGATIVE); INFLUENZA B NAA NEGATIVE (NEGATIVE); RESPIRATORY SYNCYTIAL VIR NAA NEGATIVE (NEGATIVE)
[2023-03-11] MEDS ORDERED: Azithromycin 250 MG Tab PO STA (20:03)
[2023-03-11 20:23] VITALS: BP 154/84; PULSE 74
== END 2023-03-11 20:26 | disposition home or self-care (01) ==
LOC: MW.ED 16:19
DX: J45.901 Unspecified asthma with (acute) exacerbation (principal); Z79.82 Long term (current) use of aspirin; Z79.899 Other long term (current) drug therapy; Z88.8 Allergy status to other drugs, medicaments and biological substances; Z20.822 Contact with and (suspected) exposure to COVID-19; Z87.891 Personal history of nicotine dependence
CPT/HCPCS: 0241U; 36415; 71045; 80053; 83735; 83880; 84443; 85025; 93005; 96365; 96372; 99285; A9270; J2930; J3475; J7030; J7620-GY

== ENCOUNTER 2023-03-12 23:20 | Emergency (ER) | payer BC ==
[2023-03-13] MEDS ORDERED: traMADol 50 MG Tab PO ONE (00:08)
[2023-03-13 00:40] VITALS: BP 140/87; PULSE 87
== END 2023-03-13 00:30 | disposition home or self-care (01) ==
LOC: MW.ED 23:20
DX: S89.82XA Other specified injuries of left lower leg, initial encounter (principal); I25.2 Old myocardial infarction; J45.909 Unspecified asthma, uncomplicated; Z79.02 Long term (current) use of antithrombotics/antiplatelets; Z79.82 Long term (current) use of aspirin; Z79.899 Other long term (current) drug therapy; Z88.8 Allergy status to other drugs, medicaments and biological substances; X58.XXXA Exposure to other specified factors, initial encounter
CPT/HCPCS: 73562; 99283; A9270

== ENCOUNTER 2023-03-21 14:20 | Inpatient (IN) | payer BC ==
[2023-03-21] MEDS ORDERED: Albuterol/Ipratropium 3.0-0.5 MG/3 ML Neb Soln NEB ONE (14:26)
[2023-03-21] MEDS ORDERED: Sodium Chloride 0.9% 2.5 ML Syringe FLUSH PRN ×2 (14:46→16:09)
[2023-03-21] MEDS ORDERED: Sodium Chloride 0.9% 10 ML Syringe FLUSH PRN ×2 (14:46→16:09)
[2023-03-21] MEDS ORDERED: Dexamethasone 10 MG/ML SDV IVPUSH ONE (14:47)
[2023-03-21] MEDS ORDERED: REMDESIVIR 200 MG in Sodium Chloride 0.9% 250 ML IV ONE (14:48)
[2023-03-21 15:04] LABS: BASOPHILS ABSOLUTE AUTO 0.02 K/uL (0.00-0.20); BASOPHILS PERCENT AUTO 0.2 % (0.0-1.0); EOSINOPHILS ABSOLUTE AUTO 0.01 K/uL (0.00-0.45); EOSINOPHILS PERCENT AUTO 0.1 % (0.0-6.0); HEMATOCRIT 47.3 % (42.0-52.0); HEMOGLOBIN 15.3 g/dL (14.0-18.0); IMMATURE GRAN ABSOLUTE AUTO 0.02 K/uL (0.00-0.05); IMMATURE GRAN PERCENT AUTO 0.2 % (0.0-0.4); LYMPHOCYTES ABSOLUTE AUTO 0.68 K/uL (1.00-4.80); LYMPHOCYTES PERCENT AUTO 6.6 % (24.0-44.0); MEAN CORPUSCULAR HEMOGLOBIN 32.4 pg (28.0-32.0); MEAN CORPUSCULAR HGB CONC 32.3 g/dL (32.0-36.0); MEAN CORPUSCULAR VOLUME 100.2 fL (83.0-99.0); MEAN PLATELET VOLUME 10.5 fL (9.4-12.4); MONOCYTES ABSOLUTE AUTO 0.86 K/uL (0.00-0.80); MONOCYTES PERCENT AUTO 8.4 % (0.0-8.0); NEUTROPHILS ABSOLUTE AUTO 8.66 K/uL (1.80-7.70); NEUTROPHILS PERCENT AUTO 84.5 % (41.0-71.0); PLATELET COUNT,PLT 136 K/uL (150-400); RED BLOOD CELL COUNT 4.72 M/uL (4.52-5.90); WHITE BLOOD CELL COUNT,WBC 10.25 K/uL (3.9-11.3)
[2023-03-21 15:22] LABS: A/G RATIO 0.9 (0.9-1.6); ALBUMIN 3.1 g/dL (3.4-5.0); BILIRUBIN DIRECT 0.2 mg/dL (0.0-0.5); BILIRUBIN TOTAL 0.8 mg/dL (0.2-1.0); CALCIUM 8.3 mg/dL (8.5-10.1); CARBON DIOXIDE,CO2 35.8 mmol/L (21.0-32.0); CREATININE 1.1 mg/dL (0.8-1.3); EST CRCL DRUG DOSING (CG) 59.02 mL/min; POTASSIUM,K 3.9 mmol/L (3.5-5.1); PROTEIN TOTAL,TP 6.5 g/dL (6.4-8.2)
[2023-03-21] MEDS ORDERED: Acetaminophen 325 MG Tab PO PRN (16:09)
[2023-03-21] MEDS ORDERED: Ondansetron 4 MG/2 ML SDV IVPUSH PRN (16:09)
[2023-03-21] MEDS ORDERED: traMADol 50 MG Tab PO PRN (16:12)
[2023-03-21] MEDS ORDERED: Enoxaparin 40 MG/0.4 ML Syringe SUBCUT SCH (16:15)
[2023-03-21 17:33] LABS: CORONAVIRUS COVID-19 NAA POSITIVE (NEGATIVE); INFLUENZA A NAA NEGATIVE (NEGATIVE); INFLUENZA B NAA NEGATIVE (NEGATIVE); RESPIRATORY SYNCYTIAL VIR NAA NEGATIVE (NEGATIVE)
[2023-03-21] MEDS: Rosuvastatin 10 MG Tab PO SCH (20:03)
[2023-03-21] MEDS: Albuterol/Ipratropium 3.0-0.5 MG/3 ML Neb Soln NEB PRN (20:19)
[2023-03-21] MEDS: Formoterol/Mometasone 100-5 MCG 8.8 GM Inhaler INH SCH (20:19)
[2023-03-22] MEDS: Albuterol/Ipratropium 3.0-0.5 MG/3 ML Neb Soln NEB PRN ×3 (01:24→20:41)
[2023-03-22 05:50] LABS: BASOPHILS ABSOLUTE AUTO 0.01 K/uL (0.00-0.20); BASOPHILS PERCENT AUTO 0.1 % (0.0-1.0); HEMATOCRIT 45.4 % (42.0-52.0); HEMOGLOBIN 14.6 g/dL (14.0-18.0); IMMATURE GRAN ABSOLUTE AUTO 0.02 K/uL (0.00-0.05); IMMATURE GRAN PERCENT AUTO 0.2 % (0.0-0.4); LYMPHOCYTES ABSOLUTE AUTO 0.56 K/uL (1.00-4.80); LYMPHOCYTES PERCENT AUTO 5.3 % (24.0-44.0); MEAN CORPUSCULAR HGB CONC 32.2 g/dL (32.0-36.0); MEAN CORPUSCULAR VOLUME 102.5 fL (83.0-99.0); MONOCYTES ABSOLUTE AUTO 0.94 K/uL (0.00-0.80); MONOCYTES PERCENT AUTO 8.9 % (0.0-8.0); NEUTROPHILS PERCENT AUTO 85.5 % (41.0-71.0); PLATELET COUNT,PLT 134 K/uL (150-400); RED BLOOD CELL COUNT 4.43 M/uL (4.52-5.90); WHITE BLOOD CELL COUNT,WBC 10.53 K/uL (3.9-11.3)
[2023-03-22 06:29] LABS: A/G RATIO 0.8 (0.9-1.6); ALBUMIN 2.7 g/dL (3.4-5.0); BILIRUBIN TOTAL 0.5 mg/dL (0.2-1.0); CALCIUM 8.4 mg/dL (8.5-10.1); CARBON DIOXIDE,CO2 33.1 mmol/L (21.0-32.0); CREATININE 1.1 mg/dL (0.8-1.3); EST CRCL DRUG DOSING (CG) 67.84 mL/min; MAGNESIUM 2.3 mg/dL (1.8-2.4); POTASSIUM,K 4.8 mmol/L (3.5-5.1); PROTEIN TOTAL,TP 6.1 g/dL (6.4-8.2)
[2023-03-22] MEDS: Pantoprazole 40 MG Tab.CR PO SCH (06:30)
[2023-03-22] MEDS: Clopidogrel 75 MG Tab PO SCH (08:38)
[2023-03-22] MEDS: Dexamethasone 4 MG Tab PO SCH (08:38)
[2023-03-22] MEDS: Losartan 50 MG Tab PO SCH (08:38)
[2023-03-22] MEDS: Formoterol/Mometasone 100-5 MCG 8.8 GM Inhaler INH SCH ×2 (08:44→20:40)
[2023-03-22] MEDS ORDERED: Nicotine 14 MG/24 Hr Patch TRDERM PRN (10:46)
[2023-03-22] MEDS ORDERED: Sodium Chloride 0.65% Nasal Spray 45 ML Bottle NAS PRN (10:46)
[2023-03-22] MEDS: Enoxaparin 40 MG/0.4 ML Syringe SUBCUT SCH (12:23)
[2023-03-22] MEDS: REMDESIVIR 100 MG in Sodium Chloride 0.9% 100 ML IV SCH (16:09)
[2023-03-22] MEDS: Rosuvastatin 10 MG Tab PO SCH (20:40)
[2023-03-23] MEDS: Enoxaparin 40 MG/0.4 ML Syringe SUBCUT SCH ×3 (00:18→23:12)
[2023-03-23 06:04] LABS: BASOPHILS ABSOLUTE AUTO 0.01 K/uL (0.00-0.20); BASOPHILS PERCENT AUTO 0.1 % (0.0-1.0); HEMATOCRIT 42.9 % (42.0-52.0); HEMOGLOBIN 13.7 g/dL (14.0-18.0); IMMATURE GRAN ABSOLUTE AUTO 0.03 K/uL (0.00-0.05); IMMATURE GRAN PERCENT AUTO 0.4 % (0.0-0.4); LYMPHOCYTES ABSOLUTE AUTO 0.72 K/uL (1.00-4.80); LYMPHOCYTES PERCENT AUTO 9.6 % (24.0-44.0); MEAN CORPUSCULAR HEMOGLOBIN 32.7 pg (28.0-32.0); MEAN CORPUSCULAR HGB CONC 31.9 g/dL (32.0-36.0); MEAN CORPUSCULAR VOLUME 102.4 fL (83.0-99.0); MEAN PLATELET VOLUME 10.8 fL (9.4-12.4); MONOCYTES ABSOLUTE AUTO 0.75 K/uL (0.00-0.80); NEUTROPHILS ABSOLUTE AUTO 5.96 K/uL (1.80-7.70); NEUTROPHILS PERCENT AUTO 79.9 % (41.0-71.0); PLATELET COUNT,PLT 131 K/uL (150-400); RED BLOOD CELL COUNT 4.19 M/uL (4.52-5.90); WHITE BLOOD CELL COUNT,WBC 7.47 K/uL (3.9-11.3)
[2023-03-23] MEDS: Pantoprazole 40 MG Tab.CR PO SCH ×2 (06:16→07:19)
[2023-03-23 06:40] LABS: A/G RATIO 0.8 (0.9-1.6); ALBUMIN 2.6 g/dL (3.4-5.0); BILIRUBIN TOTAL 0.4 mg/dL (0.2-1.0); CALCIUM 8.3 mg/dL (8.5-10.1); CARBON DIOXIDE,CO2 34.8 mmol/L (21.0-32.0); CREATININE 1.1 mg/dL (0.8-1.3); EST CRCL DRUG DOSING (CG) 67.84 mL/min; POTASSIUM,K 4.4 mmol/L (3.5-5.1); PROTEIN TOTAL,TP 5.7 g/dL (6.4-8.2)
[2023-03-23] MEDS: Dexamethasone 4 MG Tab PO SCH (08:07)
[2023-03-23] MEDS: Losartan 50 MG Tab PO SCH (08:07)
[2023-03-23] MEDS: Clopidogrel 75 MG Tab PO SCH (08:07)
[2023-03-23] MEDS: Formoterol/Mometasone 100-5 MCG 8.8 GM Inhaler INH SCH ×2 (08:09→20:13)
[2023-03-23] MEDS: Albuterol/Ipratropium 3.0-0.5 MG/3 ML Neb Soln NEB PRN ×2 (14:06→20:24)
[2023-03-23] MEDS: REMDESIVIR 100 MG in Sodium Chloride 0.9% 100 ML IV SCH (14:47)
[2023-03-23] MEDS: Rosuvastatin 10 MG Tab PO SCH (20:13)
[2023-03-24] MEDS: Pantoprazole 40 MG Tab.CR PO SCH (06:39)
[2023-03-24] MEDS: Albuterol/Ipratropium 3.0-0.5 MG/3 ML Neb Soln NEB PRN (06:42)
[2023-03-24 07:05] LABS: BASOPHILS ABSOLUTE AUTO 0.01 K/uL (0.00-0.20); BASOPHILS PERCENT AUTO 0.1 % (0.0-1.0); HEMATOCRIT 44.1 % (42.0-52.0); HEMOGLOBIN 14.3 g/dL (14.0-18.0); IMMATURE GRAN ABSOLUTE AUTO 0.03 K/uL (0.00-0.05); IMMATURE GRAN PERCENT AUTO 0.4 % (0.0-0.4); LYMPHOCYTES ABSOLUTE AUTO 0.88 K/uL (1.00-4.80); LYMPHOCYTES PERCENT AUTO 10.4 % (24.0-44.0); MEAN CORPUSCULAR HEMOGLOBIN 32.6 pg (28.0-32.0); MEAN CORPUSCULAR HGB CONC 32.4 g/dL (32.0-36.0); MEAN CORPUSCULAR VOLUME 100.5 fL (83.0-99.0); MEAN PLATELET VOLUME 10.4 fL (9.4-12.4); MONOCYTES ABSOLUTE AUTO 0.59 K/uL (0.00-0.80); NEUTROPHILS ABSOLUTE AUTO 6.92 K/uL (1.80-7.70); NEUTROPHILS PERCENT AUTO 82.1 % (41.0-71.0); PLATELET COUNT,PLT 145 K/uL (150-400); RED BLOOD CELL COUNT 4.39 M/uL (4.52-5.90); WHITE BLOOD CELL COUNT,WBC 8.43 K/uL (3.9-11.3)
[2023-03-24 07:29] LABS: A/G RATIO 0.9 (0.9-1.6); ALBUMIN 2.8 g/dL (3.4-5.0); BILIRUBIN TOTAL 0.6 mg/dL (0.2-1.0); CALCIUM 8.4 mg/dL (8.5-10.1); CARBON DIOXIDE,CO2 35.2 mmol/L (21.0-32.0); EST CRCL DRUG DOSING (CG) 74.63 mL/min
[2023-03-24] MEDS ORDERED: REMDESIVIR 100 MG in Sodium Chloride 0.9% 100 ML IV ONE (07:45)
[2023-03-24] MEDS: Losartan 50 MG Tab PO SCH (08:13)
[2023-03-24] MEDS: Dexamethasone 4 MG Tab PO SCH (08:15)
[2023-03-24] MEDS: Clopidogrel 75 MG Tab PO SCH (08:17)
[2023-03-24] MEDS: Formoterol/Mometasone 100-5 MCG 8.8 GM Inhaler INH SCH (08:17)
[2023-03-24 08:18] VITALS: BP 135/78
[2023-03-24 08:19] VITALS: PULSE 61
[2023-03-24] MEDS: Enoxaparin 40 MG/0.4 ML Syringe SUBCUT SCH (11:45)
== END 2023-03-24 13:00 | disposition home or self-care (01) | DRG 137 ==
LOC: MW.ED 14:20 → MW.MS 15:49
PROVIDERS: ADMIT Family Medicine; ATTEND Family Medicine
PROC: XW033E5 Introduction of Remdesivir Anti-infective into Peripheral Vein, Percutaneous Approach, New Technology Group 5 (ICD-10-PCS; principal; 2023-03-21)
PROC: 3E0DX3Z Introduction of Anti-inflammatory into Mouth and Pharynx, External Approach (ICD-10-PCS; 2023-03-21)
DX: U07.1 COVID-19 (principal); J12.82 Pneumonia due to coronavirus disease 2019; J96.01 Acute respiratory failure with hypoxia; Z68.41 Body mass index [BMI] 40.0-44.9, adult; I10 Essential (primary) hypertension; E78.00 Pure hypercholesterolemia, unspecified; G89.29 Other chronic pain; M54.9 Dorsalgia, unspecified; D86.9 Sarcoidosis, unspecified; E66.01 Morbid (severe) obesity due to excess calories; J44.9 Chronic obstructive pulmonary disease, unspecified; Z79.51 Long term (current) use of inhaled steroids; Z79.02 Long term (current) use of antithrombotics/antiplatelets; Z79.82 Long term (current) use of aspirin; I25.2 Old myocardial infarction; Z79.899 Other long term (current) drug therapy; Z88.8 Allergy status to other drugs, medicaments and biological substances; Z98.49 Cataract extraction status, unspecified eye; Z98.890 Other specified postprocedural states; Z94.7 Corneal transplant status
CPT/HCPCS: 0241U; 36415; 71045; 71045-26; 80053; 82248; 83735; 83880; 84484; 85025; 85379; 93005; 93010; 94667; 94668; 96365; 96375; 99285; 99285-25; A9270-GY; J0248; J1100; J1650; J3490; J7050; J7620-GY; J8540

== ENCOUNTER 2023-04-10 12:52 | Observation (INO) | payer BC ==
[2023-04-10] MEDS ORDERED: Albuterol/Ipratropium 3.0-0.5 MG/3 ML Neb Soln ONE (15:34)
[2023-04-10 15:51] LABS: BASOPHILS ABSOLUTE AUTO 0.04 K/uL (0.00-0.20); BASOPHILS PERCENT AUTO 0.5 % (0.0-1.0); HEMATOCRIT 48.3 % (42.0-52.0); HEMOGLOBIN 15.6 g/dL (14.0-18.0); IMMATURE GRAN ABSOLUTE AUTO 0.01 K/uL (0.00-0.05); IMMATURE GRAN PERCENT AUTO 0.1 % (0.0-0.4); LYMPHOCYTES ABSOLUTE AUTO 1.02 K/uL (1.00-4.80); LYMPHOCYTES PERCENT AUTO 12.8 % (24.0-44.0); MEAN CORPUSCULAR HEMOGLOBIN 32.4 pg (28.0-32.0); MEAN CORPUSCULAR HGB CONC 32.3 g/dL (32.0-36.0); MEAN CORPUSCULAR VOLUME 100.4 fL (83.0-99.0); MEAN PLATELET VOLUME 9.8 fL (9.4-12.4); MONOCYTES ABSOLUTE AUTO 0.76 K/uL (0.00-0.80); MONOCYTES PERCENT AUTO 9.5 % (0.0-8.0); NEUTROPHILS ABSOLUTE AUTO 5.75 K/uL (1.80-7.70); NEUTROPHILS PERCENT AUTO 72.1 % (41.0-71.0); PLATELET COUNT,PLT 176 K/uL (150-400); RED BLOOD CELL COUNT 4.81 M/uL (4.52-5.90); WHITE BLOOD CELL COUNT,WBC 7.98 K/uL (3.9-11.3)
[2023-04-10] MEDS ORDERED: Albuterol/Ipratropium 3.0-0.5 MG/3 ML Neb Soln NEB ONE (16:17)
[2023-04-10 16:22] LABS: ALBUMIN 3.6 g/dL (3.4-5.0); BILIRUBIN TOTAL 0.6 mg/dL (0.2-1.0); CALCIUM 8.8 mg/dL (8.5-10.1); CARBON DIOXIDE,CO2 30.1 mmol/L (21.0-32.0); CREATININE 1.1 mg/dL (0.8-1.3); EST CRCL DRUG DOSING (CG) 67.84 mL/min; POTASSIUM,K 4.2 mmol/L (3.5-5.1); PROTEIN TOTAL,TP 7.2 g/dL (6.4-8.2)
[2023-04-10 16:28] LABS: CORONAVIRUS COVID-19 NAA NEGATIVE (NEGATIVE); INFLUENZA A NAA NEGATIVE (NEGATIVE); INFLUENZA B NAA NEGATIVE (NEGATIVE); RESPIRATORY SYNCYTIAL VIR NAA NEGATIVE (NEGATIVE)
[2023-04-10] MEDS ORDERED: methylPREDNISolone Sodium Succinate 125 MG/2 ML SDV IVPUSH ONE (16:58)
[2023-04-10] MEDS ORDERED: Ondansetron 4 MG/2 ML SDV IVPUSH PRN (17:45)
[2023-04-10] MEDS ORDERED: Acetaminophen 325 MG Tab PO PRN (17:45)
[2023-04-10] MEDS ORDERED: cefTRIAXone 1 GM in Sodium Chloride 0.9% 50 ML IV SCH (17:45)
[2023-04-10] MEDS ORDERED: Enoxaparin 40 MG/0.4 ML Syringe SUBCUT SCH (17:45)
[2023-04-10] MEDS ORDERED: Azithromycin 500 MG in Sodium Chloride 0.9% 250 ML IV SCH ×2 (17:45→19:30)
[2023-04-10] MEDS ORDERED: Nitroglycerin 0.4 MG Tab.SL SL PRN (17:50)
[2023-04-10] MEDS: Albuterol/Ipratropium 3.0-0.5 MG/3 ML Neb Soln NEB SCH ×2 (18:29→21:52)
[2023-04-10 20:13] LABS: APPEARANCE,URINE CLEAR; BILIRUBIN,URINE NEGATIVE (NEGATIVE); COLOR,URINE YELLOW; GLUCOSE,URINE NEGATIVE (NEGATIVE); KETONES,URINE NEGATIVE (NEGATIVE); LEUKOCYTE ESTERASE,URINE NEGATIVE (NEGATIVE); NITRITE,URINE NEGATIVE (NEGATIVE); OCCULT BLOOD,URINE NEGATIVE (NEGATIVE); PH,URINE 5.5 (5.0-8.0); PROTEIN,URINE NEGATIVE (NEGATIVE); UROBILINOGEN,URINE 0.2 EU/dL (<2.0)
[2023-04-10] MEDS ORDERED: Rosuvastatin 10 MG Tab PO SCH (21:00)
[2023-04-11] MEDS: Albuterol/Ipratropium 3.0-0.5 MG/3 ML Neb Soln NEB SCH ×3 (02:05→09:44)
[2023-04-11 06:51] LABS: HEMATOCRIT 45.7 % (42.0-52.0); HEMOGLOBIN 14.7 g/dL (14.0-18.0); IMMATURE GRAN ABSOLUTE AUTO 0.02 K/uL (0.00-0.05); IMMATURE GRAN PERCENT AUTO 0.3 % (0.0-0.4); LYMPHOCYTES ABSOLUTE AUTO 0.22 K/uL (1.00-4.80); LYMPHOCYTES PERCENT AUTO 3.1 % (24.0-44.0); MEAN CORPUSCULAR HEMOGLOBIN 32.9 pg (28.0-32.0); MEAN CORPUSCULAR HGB CONC 32.2 g/dL (32.0-36.0); MEAN CORPUSCULAR VOLUME 102.2 fL (83.0-99.0); MEAN PLATELET VOLUME 9.8 fL (9.4-12.4); MONOCYTES ABSOLUTE AUTO 0.08 K/uL (0.00-0.80); MONOCYTES PERCENT AUTO 1.1 % (0.0-8.0); NEUTROPHILS ABSOLUTE AUTO 6.72 K/uL (1.80-7.70); NEUTROPHILS PERCENT AUTO 95.5 % (41.0-71.0); PLATELET COUNT,PLT 172 K/uL (150-400); RED BLOOD CELL COUNT 4.47 M/uL (4.52-5.90); WHITE BLOOD CELL COUNT,WBC 7.04 K/uL (3.9-11.3)
[2023-04-11 07:19] LABS: CALCIUM 8.9 mg/dL (8.5-10.1); CARBON DIOXIDE,CO2 31.8 mmol/L (21.0-32.0); EST CRCL DRUG DOSING (CG) 74.63 mL/min; POTASSIUM,K 5.2 mmol/L (3.5-5.1)
[2023-04-11] MEDS ORDERED: Clopidogrel 75 MG Tab PO SCH (09:00)
[2023-04-11] MEDS ORDERED: methylPREDNISolone Sodium Succinate 40 MG/1 ML SDV IVPUSH SCH (09:00)
[2023-04-11] MEDS ORDERED: Losartan 50 MG Tab PO SCH (09:00)
[2023-04-11] MEDS ORDERED: Formoterol/Mometasone 100-5 MCG 8.8 GM Inhaler INH SCH (09:00)
[2023-04-11 11:13] VITALS: BP 138/65
[2023-04-11 11:40] VITALS: PULSE 97
== END 2023-04-11 11:41 | disposition home or self-care (01) ==
LOC: MW.ED 12:52 → MW.MS 17:17
PROVIDERS: ADMIT Internal Medicine; ATTEND Internal Medicine
DX: J96.01 Acute respiratory failure with hypoxia (principal); J44.1 Chronic obstructive pulmonary disease with (acute) exacerbation; I25.2 Old myocardial infarction; I10 Essential (primary) hypertension; E66.9 Obesity, unspecified; I95.9 Hypotension, unspecified; F17.210 Nicotine dependence, cigarettes, uncomplicated; Z20.822 Contact with and (suspected) exposure to COVID-19; Z68.41 Body mass index [BMI] 40.0-44.9, adult; Z79.899 Other long term (current) drug therapy
CPT/HCPCS: 0241U; 36415; 71045; 71045-26; 80048; 80053; 81003; 85025; 93005; 93010; 94640; 96365; 96372; 96374; 96375; 96376; 99285; 99285-25; A9270-GY; G0378; J0456; J0696; J1650; J2920; J2930; J3490; J7050; J7620-GY

== ENCOUNTER 2023-07-06 21:47 | Emergency (ER) | payer BC ==
[2023-07-06 21:59] VITALS: BP 141/84; PULSE 75
[2023-07-06] MEDS: Diphtheria,Pertussis(Acell),Tetanus Vaccine 0.5 ML Syringe IM ONE (22:25)
== END 2023-07-06 22:51 | disposition home or self-care (01) ==
LOC: MW.ED 21:47
DX: S61.412A Laceration without foreign body of left hand, initial encounter (principal); E78.00 Pure hypercholesterolemia, unspecified; I10 Essential (primary) hypertension; I25.2 Old myocardial infarction; J44.9 Chronic obstructive pulmonary disease, unspecified; Z79.899 Other long term (current) drug therapy; Z79.82 Long term (current) use of aspirin; Z23 Encounter for immunization; W26.0XXA Contact with knife, initial encounter
CPT/HCPCS: 12001; 90471; 90715; 99282-25; 99283

== ENCOUNTER 2023-12-29 20:55 | Inpatient (IN) | payer BC ==
[2023-12-29] MEDS: methylPREDNISolone Sodium Succinate 125 MG/2 ML SDV IVPUSH ONE (21:36)
[2023-12-29] MEDS: Sodium Chloride 0.9% 2.5 ML Syringe FLUSH PRN (21:36)
[2023-12-29] MEDS: Albuterol/Ipratropium 3.0-0.5 MG/3 ML Neb Soln NEB ONE ×2 (21:36→22:34)
[2023-12-29] MEDS: Sodium Chloride 0.9% 10 ML Syringe FLUSH PRN (21:36)
[2023-12-29] MEDS: Acetaminophen 500 MG Tab PO ONE (21:36)
[2023-12-29 21:52] LABS: BASOPHILS ABSOLUTE AUTO 0.02 K/uL (0.00-0.20); BASOPHILS PERCENT AUTO 0.2 % (0.0-1.0); EOSINOPHILS ABSOLUTE AUTO 0.08 K/uL (0.00-0.45); EOSINOPHILS PERCENT AUTO 0.9 % (0.0-6.0); HEMATOCRIT 49.8 % (42.0-52.0); HEMOGLOBIN 15.4 g/dL (14.0-18.0); IMMATURE GRAN ABSOLUTE AUTO 0.02 K/uL (0.00-0.05); IMMATURE GRAN PERCENT AUTO 0.2 % (0.0-0.4); LYMPHOCYTES ABSOLUTE AUTO 0.48 K/uL (1.00-4.80); LYMPHOCYTES PERCENT AUTO 5.6 % (24.0-44.0); MEAN CORPUSCULAR HEMOGLOBIN 32.4 pg (28.0-32.0); MEAN CORPUSCULAR HGB CONC 30.9 g/dL (32.0-36.0); MEAN CORPUSCULAR VOLUME 104.8 fL (83.0-99.0); MEAN PLATELET VOLUME 10.6 fL (9.4-12.4); MONOCYTES PERCENT AUTO 9.3 % (0.0-8.0); NEUTROPHILS ABSOLUTE AUTO 7.18 K/uL (1.80-7.70); NEUTROPHILS PERCENT AUTO 83.8 % (41.0-71.0); PLATELET COUNT,PLT 141 K/uL (150-400); RED BLOOD CELL COUNT 4.75 M/uL (4.52-5.90); WHITE BLOOD CELL COUNT,WBC 8.58 K/uL (3.9-11.3)
[2023-12-29 22:23] LABS: ALBUMIN 3.3 g/dL (3.4-5.0); BILIRUBIN TOTAL 0.6 mg/dL (0.2-1.0); CARBON DIOXIDE,CO2 36.9 mmol/L (21.0-32.0); CREATININE 1.3 mg/dL (0.8-1.3); EST CRCL DRUG DOSING (CG) 57.41 mL/min; POTASSIUM,K 4.7 mmol/L (3.5-5.1); PROTEIN TOTAL,TP 6.5 g/dL (6.4-8.2)
[2023-12-29 22:27] LABS: CORONAVIRUS COVID-19 NAA NEGATIVE (NEGATIVE); INFLUENZA A NAA NEGATIVE (NEGATIVE); INFLUENZA B NAA NEGATIVE (NEGATIVE); RESPIRATORY SYNCYTIAL VIR NAA NEGATIVE (NEGATIVE)
[2023-12-29 22:27] LABS: BICARBONATE,VENOUS 40 mEQ/mL (22-28); PCO2 VENOUS 83 mmHG (41-51); PH,VENOUS 7.29 (7.31-7.41); PO2 VENOUS < 30 mmHG (35-45)
[2023-12-29] MEDS: Furosemide 40 MG/4 ML VIAL IVPUSH ONE (22:52)
[2023-12-29] MEDS: cefTRIAXone 1 GM in Sodium Chloride 0.9% 50 ML IV ONE (22:53)
[2023-12-29] MEDS: Azithromycin 500 MG in Sodium Chloride 0.9% 250 ML IV ONE (23:22)
[2023-12-30] MEDS ORDERED: Albuterol/Ipratropium 3.0-0.5 MG/3 ML Neb Soln INH SCH
[2023-12-30] MEDS: Enoxaparin 40 MG/0.4 ML Syringe SUBCUT ONE (01:14)
[2023-12-30 02:32] LABS: BASE EXCESS ARTERIAL 5.7 (-2.0-3.0); BICARBONATE,ARTERIAL 36 mEq/L (22-26); PCO2 ARTERIAL 82 mmHG (35-45); PO2 ARTERIAL 100 mmHG (80-105)
[2023-12-30 05:22] LABS: BASE EXCESS ARTERIAL 5.5 (-2.0-3.0); BICARBONATE,ARTERIAL 37 mEq/L (22-26); PCO2 ARTERIAL 83 mmHG (35-45); PO2 ARTERIAL 194 mmHG (80-105)
[2023-12-30] MEDS ORDERED: Succinylcholine 200 MG/10 ML MDV IV ONE (05:30)
[2023-12-30] MEDS: propofoL 100 ML IV SCH (05:40)
[2023-12-30] MEDS: Midazolam HCl In 0.9 % NaCl/Pf 100 ML IV SCH (05:43)
[2023-12-30] MEDS ORDERED: Formoterol/Mometasone 100-5 MCG 8.8 GM Inhaler INH SCH (06:00)
[2023-12-30] MEDS: Norepinephrine Bit/D5W Premix 250 ML IV SCH (06:06)
[2023-12-30 06:12] VITALS: PULSE 86
[2023-12-30 06:38] LABS: HEMATOCRIT 52.8 % (42.0-52.0); HEMOGLOBIN 15.9 g/dL (14.0-18.0); MEAN CORPUSCULAR HEMOGLOBIN 31.9 pg (28.0-32.0); MEAN CORPUSCULAR HGB CONC 30.1 g/dL (32.0-36.0); MEAN PLATELET VOLUME 11.1 fL (9.4-12.4); PLATELET COUNT,PLT 149 K/uL (150-400); RED BLOOD CELL COUNT 4.98 M/uL (4.52-5.90); WHITE BLOOD CELL COUNT,WBC 7.13 K/uL (3.9-11.3)
[2023-12-30] MEDS: fentaNYL/Normal Saline 2,500 MCG in Premix Bag 1 BAG IV PRN (06:40)
[2023-12-30 07:16] LABS: A/G RATIO 0.9 (0.9-1.6); ALBUMIN 3.2 g/dL (3.4-5.0); BILIRUBIN TOTAL 0.6 mg/dL (0.2-1.0); CALCIUM 8.9 mg/dL (8.5-10.1); CREATININE 1.3 mg/dL (0.8-1.3); EST CRCL DRUG DOSING (CG) 57.41 mL/min; POTASSIUM,K 4.7 mmol/L (3.5-5.1); PROTEIN TOTAL,TP 6.6 g/dL (6.4-8.2)
[2023-12-30] MEDS ORDERED: Furosemide 40 MG/4 ML VIAL IV SCH (09:00)
[2023-12-30] MEDS ORDERED: methylPREDNISolone Sodium Succinate 40 MG/1 ML SDV IVPUSH SCH (09:00)
[2023-12-30] MEDS ORDERED: Furosemide 40 MG in Sodium Chloride 0.9% 50 ML IV SCH (09:00)
[2023-12-30] MEDS ORDERED: Losartan 25 MG Tab PO SCH (09:00)
[2023-12-30] MEDS ORDERED: Aspirin 81 MG Tab.EC PO SCH (09:00)
[2023-12-30] MEDS ORDERED: Clopidogrel 75 MG Tab PO SCH (09:00)
[2023-12-30 09:18] VITALS: BP 143/81
[2023-12-30] MEDS ORDERED: Enoxaparin 40 MG/0.4 ML Syringe SUBCUT SCH (21:00)
[2023-12-30] MEDS ORDERED: Rosuvastatin 10 MG Tab PO SCH (21:00)
[2023-12-30] MEDS ORDERED: Azithromycin 500 MG in Sodium Chloride 0.9% 250 ML IV SCH (21:00)
[2023-12-30] MEDS ORDERED: cefTRIAXone 1 GM in Sodium Chloride 0.9% 50 ML IV SCH (21:00)
== END 2023-12-30 09:26 | DRG 133 ==
LOC: MW.ED 20:55 → MW.ICU 23:11 → UNDOADMIN 23:20
PROVIDERS: ADMIT Internal Medicine; ATTEND Internal Medicine
PROC: 5A09357 Assistance with Respiratory Ventilation, Less than 24 Consecutive Hours, Continuous Positive Airway Pressure (ICD-10-PCS; 2023-12-29)
PROC: 4A133R1 Monitoring of Arterial Saturation, Peripheral, Percutaneous Approach (ICD-10-PCS; 2023-12-29)
PROC: 3E033XZ Introduction of Vasopressor into Peripheral Vein, Percutaneous Approach (ICD-10-PCS; 2023-12-29)
PROC: 0BH17EZ Insertion of Endotracheal Airway into Trachea, Via Natural or Artificial Opening (ICD-10-PCS; principal; 2023-12-30)
PROC: 5A1935Z Respiratory Ventilation, Less than 24 Consecutive Hours (ICD-10-PCS; 2023-12-30)
DX: J96.21 Acute and chronic respiratory failure with hypoxia (principal); J44.1 Chronic obstructive pulmonary disease with (acute) exacerbation; E66.2 Morbid (severe) obesity with alveolar hypoventilation; I11.0 Hypertensive heart disease with heart failure; I50.9 Heart failure, unspecified; E78.00 Pure hypercholesterolemia, unspecified; M54.9 Dorsalgia, unspecified; G89.29 Other chronic pain; F17.210 Nicotine dependence, cigarettes, uncomplicated; J96.22 Acute and chronic respiratory failure with hypercapnia; D86.9 Sarcoidosis, unspecified; Z79.51 Long term (current) use of inhaled steroids; Z79.899 Other long term (current) drug therapy; Z79.02 Long term (current) use of antithrombotics/antiplatelets; Z79.82 Long term (current) use of aspirin; I25.2 Old myocardial infarction; Z98.49 Cataract extraction status, unspecified eye; Z68.42 Body mass index [BMI] 45.0-49.9, adult
CPT/HCPCS: 0241U; 31500; 36415; 36600; 71045; 71045-26; 80053; 82803; 83605; 83880; 84484; 85025; 85027; 87040; 93005; 93010; 94002; 94660; 96374; 96375; 99222; 99284; 99285-25; A9270-GY; J0330; J0456; J0696; J1940; J2251; J2704; J2919; J3490; J7050; J7620-GY

== ENCOUNTER 2024-03-04 15:49 | Emergency (ER) | payer BC ==
[2024-03-04] MEDS ORDERED: Sodium Chloride 0.9% 10 ML Syringe FLUSH PRN (15:55)
[2024-03-04] MEDS ORDERED: Sodium Chloride 0.9% 2.5 ML Syringe FLUSH PRN (15:55)
[2024-03-04 16:27] LABS: BASOPHILS ABSOLUTE AUTO 0.03 K/uL (0.00-0.20); BASOPHILS PERCENT AUTO 0.4 % (0.0-1.0); EOSINOPHILS ABSOLUTE AUTO 0.25 K/uL (0.00-0.45); EOSINOPHILS PERCENT AUTO 3.4 % (0.0-6.0); HEMATOCRIT 43.6 % (42.0-52.0); HEMOGLOBIN 14.7 g/dL (14.0-18.0); IMMATURE GRAN ABSOLUTE AUTO 0.02 K/uL (0.00-0.05); IMMATURE GRAN PERCENT AUTO 0.3 % (0.0-0.4); LYMPHOCYTES ABSOLUTE AUTO 0.64 K/uL (1.00-4.80); LYMPHOCYTES PERCENT AUTO 8.7 % (24.0-44.0); MEAN CORPUSCULAR HGB CONC 33.7 g/dL (32.0-36.0); MEAN CORPUSCULAR VOLUME 97.8 fL (83.0-99.0); MEAN PLATELET VOLUME 9.6 fL (9.4-12.4); MONOCYTES ABSOLUTE AUTO 0.77 K/uL (0.00-0.80); MONOCYTES PERCENT AUTO 10.5 % (0.0-8.0); NEUTROPHILS ABSOLUTE AUTO 5.64 K/uL (1.80-7.70); NEUTROPHILS PERCENT AUTO 76.7 % (41.0-71.0); PLATELET COUNT,PLT 175 K/uL (150-400); RED BLOOD CELL COUNT 4.46 M/uL (4.52-5.90); WHITE BLOOD CELL COUNT,WBC 7.35 K/uL (3.9-11.3)
[2024-03-04 17:03] LABS: ALBUMIN 3.4 g/dL (3.4-5.0); BILIRUBIN TOTAL 0.9 mg/dL (0.2-1.0); CALCIUM 9.1 mg/dL (8.5-10.1); CARBON DIOXIDE,CO2 32.9 mmol/L (21.0-32.0); CREATININE 1.1 mg/dL (0.8-1.3); EST CRCL DRUG DOSING (CG) 67.84 mL/min; POTASSIUM,K 3.5 mmol/L (3.5-5.1); PROTEIN TOTAL,TP 6.8 g/dL (6.4-8.2)
[2024-03-04 19:29] VITALS: BP 110/74; PULSE 71
== END 2024-03-04 19:39 | disposition home or self-care (01) ==
LOC: MW.ED 15:49
DX: M79.10 Myalgia, unspecified site (principal); R05.9 Cough, unspecified; R09.81 Nasal congestion; I11.0 Hypertensive heart disease with heart failure; I50.9 Heart failure, unspecified; I25.2 Old myocardial infarction; E78.00 Pure hypercholesterolemia, unspecified; J44.9 Chronic obstructive pulmonary disease, unspecified; Z79.899 Other long term (current) drug therapy; Z79.82 Long term (current) use of aspirin; Z86.16 Personal history of COVID-19
CPT/HCPCS: 36415; 71046; 71046-26; 80053; 84484; 85025; 87428-QW; 93005; 99285

== ENCOUNTER 2024-03-21 20:40 | Emergency (ER) | payer BC, MEDICARE ==
[2024-03-21] MEDS: Albuterol/Ipratropium 3.0-0.5 MG/3 ML Neb Soln NEB ONE ×3 (21:00)
[2024-03-21] MEDS: methylPREDNISolone Sodium Succinate 125 MG/2 ML SDV IVPUSH ONE (21:03)
[2024-03-21] MEDS: Magnesium Sulfate/Water Premix 4 GM in Premix Bag 1 BAG IV ONE (21:03)
[2024-03-21 21:12] LABS: BASOPHILS ABSOLUTE AUTO 0.03 K/uL (0.00-0.20); BASOPHILS PERCENT AUTO 0.3 % (0.0-1.0); EOSINOPHILS ABSOLUTE AUTO 0.06 K/uL (0.00-0.45); EOSINOPHILS PERCENT AUTO 0.6 % (0.0-6.0); HEMATOCRIT 45.9 % (42.0-52.0); HEMOGLOBIN 14.6 g/dL (14.0-18.0); IMMATURE GRAN ABSOLUTE AUTO 0.03 K/uL (0.00-0.05); IMMATURE GRAN PERCENT AUTO 0.3 % (0.0-0.4); LYMPHOCYTES ABSOLUTE AUTO 0.66 K/uL (1.00-4.80); LYMPHOCYTES PERCENT AUTO 7.1 % (24.0-44.0); MEAN CORPUSCULAR HEMOGLOBIN 33.3 pg (28.0-32.0); MEAN CORPUSCULAR HGB CONC 31.8 g/dL (32.0-36.0); MEAN CORPUSCULAR VOLUME 104.6 fL (83.0-99.0); MEAN PLATELET VOLUME 9.7 fL (9.4-12.4); MONOCYTES ABSOLUTE AUTO 0.44 K/uL (0.00-0.80); MONOCYTES PERCENT AUTO 4.7 % (0.0-8.0); NEUTROPHILS ABSOLUTE AUTO 8.07 K/uL (1.80-7.70); PLATELET COUNT,PLT 201 K/uL (150-400); RED BLOOD CELL COUNT 4.39 M/uL (4.52-5.90); WHITE BLOOD CELL COUNT,WBC 9.29 K/uL (3.9-11.3)
[2024-03-21 21:29] LABS: CALCIUM 9.3 mg/dL (8.5-10.1); CARBON DIOXIDE,CO2 37.6 mmol/L (21.0-32.0); CREATININE 1.2 mg/dL (0.8-1.3); EST CRCL DRUG DOSING (CG) 61.37 mL/min; POTASSIUM,K 4.6 mmol/L (3.5-5.1)
[2024-03-21] MEDS ORDERED: Albuterol 75 MG in Sodium Chloride 0.9% 45 ML NEB SCH (21:45)
[2024-03-21] MEDS: Albuterol 0.083% 2.5 MG/3 ML Neb Soln NEB ONE ×2 (23:32→23:44)
[2024-03-22] MEDS: Albuterol 0.083% 2.5 MG/3 ML Neb Soln NEB ONE ×2 (00:15)
[2024-03-22 01:50] VITALS: BP 121/70; PULSE 78
== END 2024-03-22 02:01 | disposition home or self-care (01) ==
LOC: MW.ED 20:40
DX: J44.1 Chronic obstructive pulmonary disease with (acute) exacerbation (principal); I25.2 Old myocardial infarction; I11.0 Hypertensive heart disease with heart failure; I50.9 Heart failure, unspecified; E78.00 Pure hypercholesterolemia, unspecified; Z87.891 Personal history of nicotine dependence; Z79.51 Long term (current) use of inhaled steroids; Z79.82 Long term (current) use of aspirin; Z79.899 Other long term (current) drug therapy
CPT/HCPCS: 36415; 71045; 80048; 85025; 93005; 96365; 96366; 96375; 99285; J2919; J3475; J7620-GY

== ENCOUNTER 2024-05-31 00:10 | Emergency (ER) | payer BC, MEDICARE ==
[2024-05-31] MEDS ORDERED: Sodium Chloride 0.9% 10 ML Syringe FLUSH PRN (00:31)
[2024-05-31] MEDS ORDERED: Sodium Chloride 0.9% 2.5 ML Syringe FLUSH PRN (00:31)
[2024-05-31] MEDS ORDERED: Sodium Chloride 0.9% 20 ML SDV IV PRN (00:31)
[2024-05-31] MEDS: Albuterol/Ipratropium 3.0-0.5 MG/3 ML Neb Soln NEB ONE (00:54)
[2024-05-31 01:05] LABS: BASOPHILS ABSOLUTE AUTO 0.04 K/uL (0.00-0.20); BASOPHILS PERCENT AUTO 0.5 % (0.0-1.0); EOSINOPHILS ABSOLUTE AUTO 0.36 K/uL (0.00-0.45); EOSINOPHILS PERCENT AUTO 4.2 % (0.0-6.0); HEMATOCRIT 48.2 % (42.0-52.0); HEMOGLOBIN 15.9 g/dL (14.0-18.0); IMMATURE GRAN ABSOLUTE AUTO 0.02 K/uL (0.00-0.05); IMMATURE GRAN PERCENT AUTO 0.2 % (0.0-0.4); LYMPHOCYTES ABSOLUTE AUTO 0.76 K/uL (1.00-4.80); LYMPHOCYTES PERCENT AUTO 8.9 % (24.0-44.0); MEAN CORPUSCULAR HEMOGLOBIN 33.9 pg (28.0-32.0); MEAN CORPUSCULAR VOLUME 102.8 fL (83.0-99.0); MEAN PLATELET VOLUME 9.9 fL (9.4-12.4); MONOCYTES PERCENT AUTO 8.2 % (0.0-8.0); NEUTROPHILS ABSOLUTE AUTO 6.63 K/uL (1.80-7.70); PLATELET COUNT,PLT 173 K/uL (150-400); RED BLOOD CELL COUNT 4.69 M/uL (4.52-5.90); WHITE BLOOD CELL COUNT,WBC 8.51 K/uL (3.9-11.3)
[2024-05-31 01:29] LABS: CALCIUM 8.7 mg/dL (8.5-10.1); CARBON DIOXIDE,CO2 32.7 mmol/L (21.0-32.0); CREATININE 1.2 mg/dL (0.8-1.3); EST CRCL DRUG DOSING (CG) 61.37 mL/min; MAGNESIUM 2.2 mg/dL (1.8-2.4); POTASSIUM,K 4.1 mmol/L (3.5-5.1)
[2024-05-31 02:48] VITALS: BP 133/92; PULSE 63
== END 2024-05-31 02:47 | disposition left against medical advice (07) ==
LOC: MW.ED 00:10
DX: J44.1 Chronic obstructive pulmonary disease with (acute) exacerbation (principal); I11.0 Hypertensive heart disease with heart failure; I50.9 Heart failure, unspecified; E78.00 Pure hypercholesterolemia, unspecified; I25.2 Old myocardial infarction; J44.9 Chronic obstructive pulmonary disease, unspecified; Z87.891 Personal history of nicotine dependence; Z79.899 Other long term (current) drug therapy; Z79.51 Long term (current) use of inhaled steroids
CPT/HCPCS: 36415; 71046; 80048; 83735; 84484; 85025; 87428; 93005; 96374; 99285; J1100; J7620; 93010; 99283; A9270-GY

== ENCOUNTER 2024-06-19 12:20 | Inpatient (IN) | payer BC, MEDICARE ==
[2024-06-19] MEDS ORDERED: Sodium Chloride 0.9% 2.5 ML Syringe FLUSH PRN (12:46)
[2024-06-19] MEDS ORDERED: Sodium Chloride 0.9% 10 ML Syringe FLUSH PRN (12:46)
[2024-06-19] MEDS: Albuterol/Ipratropium 3.0-0.5 MG/3 ML Neb Soln NEB ONE ×2 (12:55→13:57)
[2024-06-19 12:56] LABS: BASOPHILS ABSOLUTE AUTO 0.02 K/uL (0.00-0.20); BASOPHILS PERCENT AUTO 0.3 % (0.0-1.0); EOSINOPHILS ABSOLUTE AUTO 0.06 K/uL (0.00-0.45); EOSINOPHILS PERCENT AUTO 0.8 % (0.0-6.0); HEMATOCRIT 51.3 % (42.0-52.0); IMMATURE GRAN ABSOLUTE AUTO 0.02 K/uL (0.00-0.05); IMMATURE GRAN PERCENT AUTO 0.3 % (0.0-0.4); LYMPHOCYTES ABSOLUTE AUTO 0.67 K/uL (1.00-4.80); LYMPHOCYTES PERCENT AUTO 8.4 % (24.0-44.0); MEAN CORPUSCULAR HEMOGLOBIN 32.9 pg (28.0-32.0); MEAN CORPUSCULAR HGB CONC 31.2 g/dL (32.0-36.0); MEAN CORPUSCULAR VOLUME 105.6 fL (83.0-99.0); MEAN PLATELET VOLUME 10.2 fL (9.4-12.4); MONOCYTES ABSOLUTE AUTO 0.68 K/uL (0.00-0.80); MONOCYTES PERCENT AUTO 8.5 % (0.0-8.0); NEUTROPHILS ABSOLUTE AUTO 6.52 K/uL (1.80-7.70); NEUTROPHILS PERCENT AUTO 81.7 % (41.0-71.0); PLATELET COUNT,PLT 163 K/uL (150-400); RED BLOOD CELL COUNT 4.86 M/uL (4.52-5.90); WHITE BLOOD CELL COUNT,WBC 7.97 K/uL (3.9-11.3)
[2024-06-19] MEDS: methylPREDNISolone Sodium Succinate 125 MG/2 ML SDV IVPUSH ONE (12:56)
[2024-06-19 13:11] LABS: BICARBONATE,ARTERIAL 45 mEq/L (21-28); PCO2 ARTERIAL 80 mmHG (35-45); PO2 ARTERIAL 83 mmHG (83-108)
[2024-06-19 13:18] LABS: A/G RATIO 1.2 (0.9-1.6); ALBUMIN 3.6 g/dL (3.4-5.0); BILIRUBIN TOTAL 0.7 mg/dL (0.2-1.0); CALCIUM 8.9 mg/dL (8.5-10.1); CARBON DIOXIDE,CO2 39.1 mmol/L (21.0-32.0); CREATININE 1.3 mg/dL (0.8-1.3); EST CRCL DRUG DOSING (CG) 56.65 mL/min; MAGNESIUM 2.4 mg/dL (1.8-2.4); POTASSIUM,K 4.5 mmol/L (3.5-5.1); PROTEIN TOTAL,TP 6.7 g/dL (6.4-8.2)
[2024-06-19] MEDS: Acetaminophen 500 MG Tab PO ONE (13:28)
[2024-06-19] MEDS ORDERED: cefTRIAXone 1,000 MG in Dextrose 5% in Water 50 ML IV ONE (13:40)
[2024-06-19] MEDS: cefTRIAXone 1 GM in Water For Injection, Sterile 10 ML IVPUSH ONE (14:18)
[2024-06-19] MEDS ORDERED: oxyCODONE 5 MG Tab PO PRN (15:48)
[2024-06-19] MEDS ORDERED: Docusate Sodium 100 MG Cap PO PRN (15:48)
[2024-06-19] MEDS ORDERED: Polyethylene Glycol 3350 Powder 17 GM Packet PO PRN (15:48)
[2024-06-19] MEDS ORDERED: Ondansetron 4 MG/2 ML SDV IVPUSH PRN (15:48)
[2024-06-19] MEDS ORDERED: Ondansetron 4 MG Tab.DIS PO PRN (15:48)
[2024-06-19] MEDS ORDERED: Sodium Chloride 0.9% 1,000 ML IV SCH (16:00)
[2024-06-19] MEDS: Albuterol/Ipratropium 3.0-0.5 MG/3 ML Neb Soln NEB PRN (16:59)
[2024-06-19] MEDS: Enoxaparin 40 MG/0.4 ML Syringe SUBCUT SCH (17:08)
[2024-06-19] MEDS: Rosuvastatin 10 MG Tab PO SCH (20:37)
[2024-06-19] MEDS: Doxycycline 100 MG Cap PO SCH (20:37)
[2024-06-19] MEDS: methylPREDNISolone Sodium Succinate 40 MG/1 ML SDV IVPUSH SCH (20:37)
[2024-06-19] MEDS: Formoterol/Mometasone 100-5 MCG 8.8 GM Inhaler INH SCH (20:42)
[2024-06-20] MEDS: Acetaminophen 325 MG Tab PO PRN (02:23)
[2024-06-20 07:05] LABS: HEMATOCRIT 50.9 % (42.0-52.0); HEMOGLOBIN 15.6 g/dL (14.0-18.0); IMMATURE GRAN ABSOLUTE AUTO 0.01 K/uL (0.00-0.05); IMMATURE GRAN PERCENT AUTO 0.1 % (0.0-0.4); LYMPHOCYTES ABSOLUTE AUTO 0.22 K/uL (1.00-4.80); LYMPHOCYTES PERCENT AUTO 2.7 % (24.0-44.0); MEAN CORPUSCULAR HEMOGLOBIN 32.6 pg (28.0-32.0); MEAN CORPUSCULAR HGB CONC 30.6 g/dL (32.0-36.0); MEAN CORPUSCULAR VOLUME 106.3 fL (83.0-99.0); MEAN PLATELET VOLUME 10.1 fL (9.4-12.4); MONOCYTES ABSOLUTE AUTO 0.25 K/uL (0.00-0.80); NEUTROPHILS ABSOLUTE AUTO 7.73 K/uL (1.80-7.70); NEUTROPHILS PERCENT AUTO 94.2 % (41.0-71.0); PLATELET COUNT,PLT 150 K/uL (150-400); RED BLOOD CELL COUNT 4.79 M/uL (4.52-5.90); WHITE BLOOD CELL COUNT,WBC 8.21 K/uL (3.9-11.3)
[2024-06-20 07:39] LABS: A/G RATIO 1.1 (0.9-1.6); ALBUMIN 3.4 g/dL (3.4-5.0); BILIRUBIN TOTAL 0.5 mg/dL (0.2-1.0); CALCIUM 8.9 mg/dL (8.5-10.1); CARBON DIOXIDE,CO2 35.8 mmol/L (21.0-32.0); CREATININE 1.2 mg/dL (0.8-1.3); EST CRCL DRUG DOSING (CG) 61.37 mL/min; MAGNESIUM 2.3 mg/dL (1.8-2.4); PHOSPHORUS 4.6 mg/dL (2.6-4.7); POTASSIUM,K 5.1 mmol/L (3.5-5.1); PROTEIN TOTAL,TP 6.6 g/dL (6.4-8.2)
[2024-06-20] MEDS: Pantoprazole 40 MG Tab.CR PO SCH (07:45)
[2024-06-20] MEDS: Furosemide 20 MG Tab PO SCH (07:46)
[2024-06-20] MEDS: Losartan 25 MG Tab PO SCH (08:25)
[2024-06-20] MEDS: Clopidogrel 75 MG Tab PO SCH (08:26)
[2024-06-20 09:30] LABS: PCO2 ARTERIAL 73 mmHG (35-45)
[2024-06-20 09:31] LABS: BASE EXCESS ARTERIAL 12.8 (-2.0-3.0); BICARBONATE,ARTERIAL 42 mEq/L (21-28); PO2 ARTERIAL 73 mmHG (83-108)
[2024-06-20 09:48] LABS: FOLIC ACID 6.4 ng/mL (8.60-58.90); TSH ULTRASENSITIVE 0.18 uIU/mL (0.36-3.74)
[2024-06-20 10:45] LABS: CORONAVIRUS COVID-19 NAA NEGATIVE (NEGATIVE); INFLUENZA A NAA NEGATIVE (NEGATIVE); INFLUENZA B NAA NEGATIVE (NEGATIVE)
[2024-06-20 11:11] LABS: T4 FREE 0.87 ng/dL (0.76-1.46)
[2024-06-20] MEDS: cefTRIAXone 1 GM in Water For Injection, Sterile 10 ML IVPUSH SCH (13:05)
[2024-06-21 06:16] LABS: BASOPHILS ABSOLUTE AUTO 0.01 K/uL (0.00-0.20); BASOPHILS PERCENT AUTO 0.1 % (0.0-1.0); HEMATOCRIT 49.5 % (42.0-52.0); HEMOGLOBIN 15.4 g/dL (14.0-18.0); IMMATURE GRAN ABSOLUTE AUTO 0.03 K/uL (0.00-0.05); IMMATURE GRAN PERCENT AUTO 0.2 % (0.0-0.4); LYMPHOCYTES PERCENT AUTO 1.6 % (24.0-44.0); MEAN CORPUSCULAR HEMOGLOBIN 32.9 pg (28.0-32.0); MEAN CORPUSCULAR HGB CONC 31.1 g/dL (32.0-36.0); MEAN CORPUSCULAR VOLUME 105.8 fL (83.0-99.0); MEAN PLATELET VOLUME 10.8 fL (9.4-12.4); MONOCYTES PERCENT AUTO 3.1 % (0.0-8.0); NEUTROPHILS ABSOLUTE AUTO 12.21 K/uL (1.80-7.70); PLATELET COUNT,PLT 142 K/uL (150-400); RED BLOOD CELL COUNT 4.68 M/uL (4.52-5.90); WHITE BLOOD CELL COUNT,WBC 12.85 K/uL (3.9-11.3)
[2024-06-21 06:44] LABS: A/G RATIO 1.1 (0.9-1.6); ALBUMIN 3.3 g/dL (3.4-5.0); BILIRUBIN TOTAL 0.4 mg/dL (0.2-1.0); CARBON DIOXIDE,CO2 37.3 mmol/L (21.0-32.0); EST CRCL DRUG DOSING (CG) 73.65 mL/min; MAGNESIUM 2.4 mg/dL (1.8-2.4); PHOSPHORUS 4.5 mg/dL (2.6-4.7); POTASSIUM,K 5.4 mmol/L (3.5-5.1); PROTEIN TOTAL,TP 6.4 g/dL (6.4-8.2)
[2024-06-21] MEDS: Furosemide 20 MG/2 ML VIAL IVPUSH SCH (08:27)
[2024-06-21] MEDS: Sodium Zirconium Cyclosilicate 10 GM Packet PO SCH (09:53)
[2024-06-21] MEDS: Furosemide 40 MG/4 ML VIAL IVPUSH SCH (13:36)
[2024-06-22 07:08] LABS: BASOPHILS ABSOLUTE AUTO 0.01 K/uL (0.00-0.20); BASOPHILS PERCENT AUTO 0.1 % (0.0-1.0); HEMATOCRIT 49.2 % (42.0-52.0); HEMOGLOBIN 15.2 g/dL (14.0-18.0); IMMATURE GRAN ABSOLUTE AUTO 0.04 K/uL (0.00-0.05); IMMATURE GRAN PERCENT AUTO 0.3 % (0.0-0.4); LYMPHOCYTES ABSOLUTE AUTO 0.72 K/uL (1.00-4.80); LYMPHOCYTES PERCENT AUTO 5.7 % (24.0-44.0); MEAN CORPUSCULAR HEMOGLOBIN 32.5 pg (28.0-32.0); MEAN CORPUSCULAR HGB CONC 30.9 g/dL (32.0-36.0); MEAN CORPUSCULAR VOLUME 105.1 fL (83.0-99.0); MEAN PLATELET VOLUME 10.2 fL (9.4-12.4); MONOCYTES ABSOLUTE AUTO 1.15 K/uL (0.00-0.80); MONOCYTES PERCENT AUTO 9.2 % (0.0-8.0); NEUTROPHILS ABSOLUTE AUTO 10.62 K/uL (1.80-7.70); NEUTROPHILS PERCENT AUTO 84.7 % (41.0-71.0); PLATELET COUNT,PLT 147 K/uL (150-400); RED BLOOD CELL COUNT 4.68 M/uL (4.52-5.90); WHITE BLOOD CELL COUNT,WBC 12.54 K/uL (3.9-11.3)
[2024-06-22 07:37] LABS: ALBUMIN 2.9 g/dL (3.4-5.0); BILIRUBIN TOTAL 0.4 mg/dL (0.2-1.0); CALCIUM 8.8 mg/dL (8.5-10.1); CARBON DIOXIDE,CO2 42.8 mmol/L (21.0-32.0); CREATININE 1.1 mg/dL (0.8-1.3); EST CRCL DRUG DOSING (CG) 66.95 mL/min; MAGNESIUM 2.2 mg/dL (1.8-2.4); POTASSIUM,K 4.3 mmol/L (3.5-5.1); PROTEIN TOTAL,TP 5.9 g/dL (6.4-8.2)
[2024-06-22] MEDS: predniSONE 20 MG Tab PO SCH (08:51)
[2024-06-23 05:57] LABS: BASOPHILS ABSOLUTE AUTO 0.01 K/uL (0.00-0.20); BASOPHILS PERCENT AUTO 0.1 % (0.0-1.0); EOSINOPHILS ABSOLUTE AUTO 0.02 K/uL (0.00-0.45); EOSINOPHILS PERCENT AUTO 0.2 % (0.0-6.0); HEMATOCRIT 47.5 % (42.0-52.0); HEMOGLOBIN 15.1 g/dL (14.0-18.0); IMMATURE GRAN ABSOLUTE AUTO 0.02 K/uL (0.00-0.05); IMMATURE GRAN PERCENT AUTO 0.2 % (0.0-0.4); LYMPHOCYTES ABSOLUTE AUTO 0.81 K/uL (1.00-4.80); LYMPHOCYTES PERCENT AUTO 8.9 % (24.0-44.0); MEAN CORPUSCULAR HGB CONC 31.8 g/dL (32.0-36.0); MEAN CORPUSCULAR VOLUME 103.9 fL (83.0-99.0); MONOCYTES ABSOLUTE AUTO 0.89 K/uL (0.00-0.80); MONOCYTES PERCENT AUTO 9.7 % (0.0-8.0); NEUTROPHILS PERCENT AUTO 80.9 % (41.0-71.0); PLATELET COUNT,PLT 145 K/uL (150-400); RED BLOOD CELL COUNT 4.57 M/uL (4.52-5.90); WHITE BLOOD CELL COUNT,WBC 9.15 K/uL (3.9-11.3)
[2024-06-23 06:49] LABS: ALBUMIN 2.8 g/dL (3.4-5.0); BILIRUBIN TOTAL 0.5 mg/dL (0.2-1.0); CALCIUM 8.6 mg/dL (8.5-10.1); CARBON DIOXIDE,CO2 42.3 mmol/L (21.0-32.0); CREATININE 1.1 mg/dL (0.8-1.3); EST CRCL DRUG DOSING (CG) 66.95 mL/min; MAGNESIUM 2.2 mg/dL (1.8-2.4); POTASSIUM,K 3.6 mmol/L (3.5-5.1); PROTEIN TOTAL,TP 5.7 g/dL (6.4-8.2)
[2024-06-24 06:09] LABS: BASOPHILS ABSOLUTE AUTO 0.01 K/uL (0.00-0.20); BASOPHILS PERCENT AUTO 0.1 % (0.0-1.0); EOSINOPHILS ABSOLUTE AUTO 0.05 K/uL (0.00-0.45); EOSINOPHILS PERCENT AUTO 0.5 % (0.0-6.0); HEMATOCRIT 51.6 % (42.0-52.0); HEMOGLOBIN 15.9 g/dL (14.0-18.0); IMMATURE GRAN ABSOLUTE AUTO 0.02 K/uL (0.00-0.05); IMMATURE GRAN PERCENT AUTO 0.2 % (0.0-0.4); LYMPHOCYTES ABSOLUTE AUTO 0.84 K/uL (1.00-4.80); MEAN CORPUSCULAR HEMOGLOBIN 32.1 pg (28.0-32.0); MEAN CORPUSCULAR HGB CONC 30.8 g/dL (32.0-36.0); MEAN PLATELET VOLUME 10.2 fL (9.4-12.4); MONOCYTES ABSOLUTE AUTO 0.87 K/uL (0.00-0.80); MONOCYTES PERCENT AUTO 9.3 % (0.0-8.0); NEUTROPHILS ABSOLUTE AUTO 7.59 K/uL (1.80-7.70); NEUTROPHILS PERCENT AUTO 80.9 % (41.0-71.0); PLATELET COUNT,PLT 144 K/uL (150-400); RED BLOOD CELL COUNT 4.96 M/uL (4.52-5.90); WHITE BLOOD CELL COUNT,WBC 9.38 K/uL (3.9-11.3)
[2024-06-24 06:29] LABS: CALCIUM 8.7 mg/dL (8.5-10.1); CARBON DIOXIDE,CO2 41.8 mmol/L (21.0-32.0); EST CRCL DRUG DOSING (CG) 73.65 mL/min; MAGNESIUM 2.3 mg/dL (1.8-2.4); POTASSIUM,K 3.7 mmol/L (3.5-5.1)
[2024-06-24] MEDS: Furosemide 40 MG Tab PO ONE (14:38)
[2024-06-24] MEDS: Cefdinir 300 MG Cap PO ONE (14:38)
[2024-06-24 17:21] VITALS: PULSE 74
[2024-06-24 17:34] VITALS: BP 120/72
== END 2024-06-24 15:15 | disposition home or self-care (01) | DRG 139 ==
LOC: MW.ED 12:20 → MW.ICU 14:59 → UNDOADMIN 15:57 → MW.ICU 15:57 → MW.MS 06-21 14:13
PROVIDERS: ADMIT Family Medicine; ATTEND Family Medicine
PROC: 4A133R1 Monitoring of Arterial Saturation, Peripheral, Percutaneous Approach (ICD-10-PCS; principal; 2024-06-19)
PROC: 5A09357 Assistance with Respiratory Ventilation, Less than 24 Consecutive Hours, Continuous Positive Airway Pressure (ICD-10-PCS; 2024-06-19)
DX: J18.9 Pneumonia, unspecified organism (principal); J96.02 Acute respiratory failure with hypercapnia; D86.9 Sarcoidosis, unspecified; I25.10 Atherosclerotic heart disease of native coronary artery without angina pectoris; Z68.41 Body mass index [BMI] 40.0-44.9, adult; I50.9 Heart failure, unspecified; E78.00 Pure hypercholesterolemia, unspecified; I11.0 Hypertensive heart disease with heart failure; I25.2 Old myocardial infarction; M54.9 Dorsalgia, unspecified; G89.29 Other chronic pain; E66.2 Morbid (severe) obesity with alveolar hypoventilation; J44.0 Chronic obstructive pulmonary disease with (acute) lower respiratory infection; J44.1 Chronic obstructive pulmonary disease with (acute) exacerbation; Z79.52 Long term (current) use of systemic steroids; Z79.82 Long term (current) use of aspirin; Z79.899 Other long term (current) drug therapy; Z95.5 Presence of coronary angioplasty implant and graft; Z98.49 Cataract extraction status, unspecified eye
CPT/HCPCS: 0240U; 36415; 36600; 71045; 71045-26; 80048; 80053; 82607; 82746; 82803; 83605; 83735; 83880; 84100; 84439; 84443; 84484; 85025; 87040; 87070; 87205; 87428-QW; 87899; 93005; 93010; 93306; 94640; 94660; 94667; 94668; 96374; 96375; 99223; 99232; 99233; 99239; 99285; 99285-25; A9270-GY; J0696; J1650; J1940; J2919

== ENCOUNTER 2024-07-23 23:40 | Emergency (ER) | payer BC, MEDICARE ==
[2024-07-23] MEDS: Albuterol/Ipratropium 3.0-0.5 MG/3 ML Neb Soln NEB ONE (23:50)
[2024-07-23] MEDS ORDERED: Sodium Chloride 0.9% 2.5 ML Syringe FLUSH PRN (23:54)
[2024-07-23] MEDS ORDERED: Sodium Chloride 0.9% 20 ML SDV IV PRN (23:54)
[2024-07-23] MEDS: Albuterol/Ipratropium 3.0-0.5 MG/3 ML Neb Soln ONE (23:55)
[2024-07-24] MEDS: Sodium Chloride 0.9% 10 ML Syringe FLUSH PRN (00:01)
[2024-07-24 00:07] LABS: BASOPHILS ABSOLUTE AUTO 0.04 K/uL (0.00-0.20); BASOPHILS PERCENT AUTO 0.4 % (0.0-1.0); EOSINOPHILS ABSOLUTE AUTO 0.28 K/uL (0.00-0.45); EOSINOPHILS PERCENT AUTO 3.1 % (0.0-6.0); HEMOGLOBIN 16.5 g/dL (14.0-18.0); IMMATURE GRAN ABSOLUTE AUTO 0.02 K/uL (0.00-0.05); IMMATURE GRAN PERCENT AUTO 0.2 % (0.0-0.4); LYMPHOCYTES ABSOLUTE AUTO 0.91 K/uL (1.00-4.80); LYMPHOCYTES PERCENT AUTO 10.2 % (24.0-44.0); MEAN CORPUSCULAR HEMOGLOBIN 33.3 pg (28.0-32.0); MEAN CORPUSCULAR HGB CONC 33.7 g/dL (32.0-36.0); MEAN CORPUSCULAR VOLUME 98.8 fL (83.0-99.0); MONOCYTES ABSOLUTE AUTO 0.67 K/uL (0.00-0.80); MONOCYTES PERCENT AUTO 7.5 % (0.0-8.0); NEUTROPHILS PERCENT AUTO 78.6 % (41.0-71.0); PLATELET COUNT,PLT 177 K/uL (150-400); RED BLOOD CELL COUNT 4.96 M/uL (4.52-5.90); WHITE BLOOD CELL COUNT,WBC 8.92 K/uL (3.9-11.3)
[2024-07-24 00:21] LABS: INR 1.01 (0.86-1.11); PTT,PARTIAL THROMBOPLSTIN TIME 26.1 SEC (23.9-30.7)
[2024-07-24 00:42] LABS: A/G RATIO 1.2 (0.9-1.6); ALBUMIN 3.7 g/dL (3.4-5.0); BILIRUBIN TOTAL 0.5 mg/dL (0.2-1.0); CALCIUM 9.3 mg/dL (8.5-10.1); CARBON DIOXIDE,CO2 33.3 mmol/L (21.0-32.0); CREATININE 1.2 mg/dL (0.8-1.3); EST CRCL DRUG DOSING (CG) 61.37 mL/min; POTASSIUM,K 3.9 mmol/L (3.5-5.1); PROTEIN TOTAL,TP 6.9 g/dL (6.4-8.2)
[2024-07-24 01:51] VITALS: BP 122/79; PULSE 76
== END 2024-07-24 01:51 | disposition home or self-care (01) ==
LOC: MW.ED 23:40
DX: J44.1 Chronic obstructive pulmonary disease with (acute) exacerbation (principal); J06.9 Acute upper respiratory infection, unspecified; I11.0 Hypertensive heart disease with heart failure; I50.9 Heart failure, unspecified; E78.00 Pure hypercholesterolemia, unspecified; Z79.82 Long term (current) use of aspirin; Z79.899 Other long term (current) drug therapy
CPT/HCPCS: 36415; 71045; 80053; 83735; 83880; 84484; 85025; 85610; 85730; 93005; 99285; J7620; 99283; A9270-GY

== ENCOUNTER 2024-08-12 21:51 | Emergency (ER) | payer BC, MEDICARE ==
[2024-08-12 21:58] VITALS: PULSE 76
[2024-08-12] MEDS: Benzonatate 100 MG Cap PO ONE (22:10)
[2024-08-12] MEDS: Ipratropium 0.02% 0.5 MG/2.5 ML Neb Soln NEB ONE (22:11)
[2024-08-12] MEDS: Albuterol 0.083% 2.5 MG/3 ML Neb Soln NEB ONE ×2 (22:11→23:18)
[2024-08-12 23:57] VITALS: BP 124/66
== END 2024-08-12 23:55 | disposition home or self-care (01) ==
LOC: MW.ED 21:51
DX: J44.1 Chronic obstructive pulmonary disease with (acute) exacerbation (principal); I11.0 Hypertensive heart disease with heart failure; I50.9 Heart failure, unspecified; I25.2 Old myocardial infarction; Z79.899 Other long term (current) drug therapy; Z79.51 Long term (current) use of inhaled steroids; Z79.82 Long term (current) use of aspirin; Z95.5 Presence of coronary angioplasty implant and graft
CPT/HCPCS: 99284; A9270; J7613; J3490

== ENCOUNTER 2024-08-17 16:16 | Inpatient (IN) | payer BC, MEDICARE ==
[2024-08-17 16:38] LABS: BASOPHILS ABSOLUTE AUTO 0.02 K/uL (0.00-0.20); BASOPHILS PERCENT AUTO 0.2 % (0.0-1.0); EOSINOPHILS ABSOLUTE AUTO 0.19 K/uL (0.00-0.45); EOSINOPHILS PERCENT AUTO 1.9 % (0.0-6.0); HEMOGLOBIN 16.2 g/dL (14.0-18.0); IMMATURE GRAN ABSOLUTE AUTO 0.03 K/uL (0.00-0.05); IMMATURE GRAN PERCENT AUTO 0.3 % (0.0-0.4); LYMPHOCYTES ABSOLUTE AUTO 0.53 K/uL (1.00-4.80); LYMPHOCYTES PERCENT AUTO 5.3 % (24.0-44.0); MEAN CORPUSCULAR HEMOGLOBIN 33.3 pg (28.0-32.0); MEAN CORPUSCULAR HGB CONC 33.1 g/dL (32.0-36.0); MEAN CORPUSCULAR VOLUME 100.8 fL (83.0-99.0); MEAN PLATELET VOLUME 9.8 fL (9.4-12.4); MONOCYTES ABSOLUTE AUTO 0.66 K/uL (0.00-0.80); MONOCYTES PERCENT AUTO 6.6 % (0.0-8.0); NEUTROPHILS ABSOLUTE AUTO 8.54 K/uL (1.80-7.70); NEUTROPHILS PERCENT AUTO 85.7 % (41.0-71.0); PLATELET COUNT,PLT 167 K/uL (150-400); RED BLOOD CELL COUNT 4.86 M/uL (4.52-5.90); WHITE BLOOD CELL COUNT,WBC 9.97 K/uL (3.9-11.3)
[2024-08-17 16:42] LABS: BASE EXCESS VENOUS 4.7 (-2.0-3.0); PH,VENOUS 7.32 (7.32-7.43)
[2024-08-17 16:51] LABS: INR 1.05 (0.86-1.11); PTT,PARTIAL THROMBOPLSTIN TIME 26.6 SEC (23.9-30.7)
[2024-08-17] MEDS: methylPREDNISolone Sodium Succinate 125 MG/2 ML SDV IVPUSH ONE (16:58)
[2024-08-17] MEDS: Albuterol/Ipratropium 3.0-0.5 MG/3 ML Neb Soln NEB ONE ×2 (16:58→17:40)
[2024-08-17] MEDS: cefTRIAXone 2 GM in Water For Injection, Sterile 20 ML IVPUSH ONE (16:58)
[2024-08-17 17:11] LABS: ALBUMIN 3.4 g/dL (3.4-5.0); BILIRUBIN TOTAL 0.7 mg/dL (0.2-1.0); CALCIUM 8.5 mg/dL (8.5-10.1); CARBON DIOXIDE,CO2 34.1 mmol/L (21.0-32.0); CREATININE 1.1 mg/dL (0.8-1.3); EST CRCL DRUG DOSING (CG) 60.42 mL/min; MAGNESIUM 1.9 mg/dL (1.8-2.4); POTASSIUM,K 4.1 mmol/L (3.5-5.1); PROTEIN TOTAL,TP 6.8 g/dL (6.4-8.2)
[2024-08-17 17:34] LABS: BASE EXCESS VENOUS 6.4 (-2.0-3.0); PH,VENOUS 7.33 (7.32-7.43)
[2024-08-17] MEDS: Magnesium Sulfate 2 GM/50 mL 2 GM in Premix Bag 1 BAG IV ONE (17:40)
[2024-08-17] MEDS: Doxycycline 100 MG in Sodium Chloride 0.9% 100 ML IV SCH (18:15)
[2024-08-17] MEDS: methylPREDNISolone Sodium Succinate 40 MG/1 ML SDV IVPUSH SCH (20:23)
[2024-08-17] MEDS: Formoterol/Mometasone 100-5 MCG 8.8 GM Inhaler INH SCH (20:23)
[2024-08-17] MEDS: Rosuvastatin 10 MG Tab PO SCH (20:24)
[2024-08-17] MEDS: Heparin Sodium 5,000 Units/ML Vial SUBCUT SCH (21:39)
[2024-08-17] MEDS: Albuterol/Ipratropium 3.0-0.5 MG/3 ML Neb Soln INH SCH (23:04)
[2024-08-18] MEDS: Acetaminophen 325 MG Tab PO PRN (03:29)
[2024-08-18] MEDS: Albuterol/Ipratropium 3.0-0.5 MG/3 ML Neb Soln NEB PRN (04:27)
[2024-08-18 06:24] LABS: HEMATOCRIT 46.6 % (42.0-52.0); HEMOGLOBIN 15.2 g/dL (14.0-18.0); IMMATURE GRAN ABSOLUTE AUTO 0.04 K/uL (0.00-0.05); IMMATURE GRAN PERCENT AUTO 0.5 % (0.0-0.4); LYMPHOCYTES ABSOLUTE AUTO 0.32 K/uL (1.00-4.80); LYMPHOCYTES PERCENT AUTO 3.6 % (24.0-44.0); MEAN CORPUSCULAR HEMOGLOBIN 32.9 pg (28.0-32.0); MEAN CORPUSCULAR HGB CONC 32.6 g/dL (32.0-36.0); MEAN CORPUSCULAR VOLUME 100.9 fL (83.0-99.0); MEAN PLATELET VOLUME 10.2 fL (9.4-12.4); MONOCYTES ABSOLUTE AUTO 0.12 K/uL (0.00-0.80); MONOCYTES PERCENT AUTO 1.4 % (0.0-8.0); NEUTROPHILS ABSOLUTE AUTO 8.32 K/uL (1.80-7.70); NEUTROPHILS PERCENT AUTO 94.5 % (41.0-71.0); PLATELET COUNT,PLT 157 K/uL (150-400); RED BLOOD CELL COUNT 4.62 M/uL (4.52-5.90)
[2024-08-18 06:45] LABS: CALCIUM 8.6 mg/dL (8.5-10.1); CARBON DIOXIDE,CO2 31.1 mmol/L (21.0-32.0); CREATININE 1.4 mg/dL (0.8-1.3); EST CRCL DRUG DOSING (CG) 47.47 mL/min
[2024-08-18] MEDS: Clopidogrel 75 MG Tab PO SCH (09:38)
[2024-08-18] MEDS: Losartan 25 MG Tab PO SCH (09:38)
[2024-08-18] MEDS: Aspirin 81 MG Tab.EC PO SCH (09:38)
[2024-08-18] MEDS: cefTRIAXone 1 GM in Water For Injection, Sterile 10 ML IVPUSH SCH (17:30)
[2024-08-19 05:04] VITALS: PULSE 90
[2024-08-19 10:05] VITALS: BP 118/70
== END 2024-08-19 11:15 | disposition left against medical advice (07) | DRG 133 ==
LOC: MW.ED 16:16 → MW.ICU 18:41
PROVIDERS: ADMIT Internal Medicine; ATTEND Internal Medicine
PROC: 5A0935A Assistance with Respiratory Ventilation, Less than 24 Consecutive Hours, High Flow/Velocity Cannula (ICD-10-PCS; principal; 2024-08-17)
PROC: 5A09357 Assistance with Respiratory Ventilation, Less than 24 Consecutive Hours, Continuous Positive Airway Pressure (ICD-10-PCS; 2024-08-17)
DX: J96.21 Acute and chronic respiratory failure with hypoxia (principal); J44.1 Chronic obstructive pulmonary disease with (acute) exacerbation; I11.0 Hypertensive heart disease with heart failure; I50.9 Heart failure, unspecified; E78.00 Pure hypercholesterolemia, unspecified; I25.2 Old myocardial infarction; M54.9 Dorsalgia, unspecified; G89.29 Other chronic pain; Z79.899 Other long term (current) drug therapy; Z79.82 Long term (current) use of aspirin; Z79.52 Long term (current) use of systemic steroids; Z98.49 Cataract extraction status, unspecified eye; Z95.5 Presence of coronary angioplasty implant and graft; Z87.891 Personal history of nicotine dependence
CPT/HCPCS: 36415; 71045; 71045-26; 80048; 80053; 82803; 83605; 83735; 83880; 84484; 85025; 85610; 85730; 87040; 93005; 93010; 94640; 94660; 99222; 99231; 99238; 99285; A9270-GY; J0696; J1644; J2919; J3475; J3490

== ENCOUNTER 2024-09-06 00:03 | Emergency (ER) | payer BC, MEDICARE ==
[2024-09-06] MEDS: Albuterol/Ipratropium 3.0-0.5 MG/3 ML Neb Soln NEB ONE (00:55)
[2024-09-06 00:57] LABS: BASOPHILS ABSOLUTE AUTO 0.02 K/uL (0.00-0.20); BASOPHILS PERCENT AUTO 0.1 % (0.0-1.0); EOSINOPHILS ABSOLUTE AUTO 0.09 K/uL (0.00-0.45); EOSINOPHILS PERCENT AUTO 0.7 % (0.0-6.0); HEMATOCRIT 44.4 % (42.0-52.0); HEMOGLOBIN 14.5 g/dL (14.0-18.0); IMMATURE GRAN ABSOLUTE AUTO 0.05 K/uL (0.00-0.05); IMMATURE GRAN PERCENT AUTO 0.4 % (0.0-0.4); LYMPHOCYTES ABSOLUTE AUTO 0.59 K/uL (1.00-4.80); LYMPHOCYTES PERCENT AUTO 4.3 % (24.0-44.0); MEAN CORPUSCULAR HEMOGLOBIN 33.2 pg (28.0-32.0); MEAN CORPUSCULAR HGB CONC 32.7 g/dL (32.0-36.0); MEAN CORPUSCULAR VOLUME 101.6 fL (83.0-99.0); MEAN PLATELET VOLUME 10.1 fL (9.4-12.4); MONOCYTES ABSOLUTE AUTO 0.89 K/uL (0.00-0.80); MONOCYTES PERCENT AUTO 6.4 % (0.0-8.0); NEUTROPHILS ABSOLUTE AUTO 12.17 K/uL (1.80-7.70); NEUTROPHILS PERCENT AUTO 88.1 % (41.0-71.0); PLATELET COUNT,PLT 150 K/uL (150-400); RED BLOOD CELL COUNT 4.37 M/uL (4.52-5.90); WHITE BLOOD CELL COUNT,WBC 13.81 K/uL (3.9-11.3)
[2024-09-06 01:07] LABS: APPEARANCE,URINE CLEAR; BILIRUBIN,URINE NEGATIVE (NEGATIVE); COLOR,URINE YELLOW; GLUCOSE,URINE NEGATIVE (NEGATIVE); KETONES,URINE NEGATIVE (NEGATIVE); LEUKOCYTE ESTERASE,URINE NEGATIVE (NEGATIVE); NITRITE,URINE NEGATIVE (NEGATIVE); OCCULT BLOOD,URINE NEGATIVE (NEGATIVE); PH,URINE 6.5 (5.0-8.0); PROTEIN,URINE NEGATIVE (NEGATIVE); UROBILINOGEN,URINE 0.2 EU/dL (<2.0)
[2024-09-06 01:52] LABS: A/G RATIO 1.1 (0.9-1.6); ALBUMIN 3.5 g/dL (3.4-5.0); BILIRUBIN TOTAL 0.9 mg/dL (0.2-1.0); CALCIUM 8.8 mg/dL (8.5-10.1); CARBON DIOXIDE,CO2 35.3 mmol/L (21.0-32.0); EST CRCL DRUG DOSING (CG) 71.25 mL/min; POTASSIUM,K 3.6 mmol/L (3.5-5.1); PROTEIN TOTAL,TP 6.6 g/dL (6.4-8.2)
[2024-09-06 01:55] VITALS: BP 108/64; PULSE 85
[2024-09-06] MEDS: Doxycycline Monohydrate 100 MG Cap PO ONE (02:05)
== END 2024-09-06 02:18 | disposition home or self-care (01) ==
LOC: MW.ED 00:03
DX: J44.1 Chronic obstructive pulmonary disease with (acute) exacerbation (principal); I11.0 Hypertensive heart disease with heart failure; I50.9 Heart failure, unspecified; I25.2 Old myocardial infarction; E78.00 Pure hypercholesterolemia, unspecified; Z79.51 Long term (current) use of inhaled steroids; Z79.899 Other long term (current) drug therapy; Z79.82 Long term (current) use of aspirin; Z95.5 Presence of coronary angioplasty implant and graft
CPT/HCPCS: 36415; 71045; 80053; 81003; 83690; 83880; 84484; 85025; 87040; 99285; A9270; J7620; 99283

== ENCOUNTER 2024-09-21 12:37 | Inpatient (IN) | payer BC, MEDICARE ==
[2024-09-21] MEDS ORDERED: Sodium Chloride 0.9% 2.5 ML Syringe FLUSH PRN ×2 (12:51→16:57)
[2024-09-21] MEDS ORDERED: Sodium Chloride 0.9% 10 ML Syringe FLUSH PRN ×2 (12:51→16:57)
[2024-09-21] MEDS: methylPREDNISolone Sodium Succinate 125 MG/2 ML SDV IVPUSH ONE (12:58)
[2024-09-21 13:39] LABS: RED BLOOD CELL COUNT 4.42 M/uL (4.52-5.90); WHITE BLOOD CELL COUNT,WBC 9.52 K/uL (3.9-11.3)
[2024-09-21 13:40] LABS: BASOPHILS ABSOLUTE AUTO 0.03 K/uL (0.00-0.20); BASOPHILS PERCENT AUTO 0.3 % (0.0-1.0); EOSINOPHILS ABSOLUTE AUTO 0.15 K/uL (0.00-0.45); EOSINOPHILS PERCENT AUTO 1.6 % (0.0-6.0); IMMATURE GRAN ABSOLUTE AUTO 0.02 K/uL (0.00-0.05); IMMATURE GRAN PERCENT AUTO 0.2 % (0.0-0.4); LYMPHOCYTES ABSOLUTE AUTO 0.65 K/uL (1.00-4.80); LYMPHOCYTES PERCENT AUTO 6.8 % (24.0-44.0); MEAN PLATELET VOLUME 10.2 fL (9.4-12.4); MONOCYTES ABSOLUTE AUTO 0.73 K/uL (0.00-0.80); MONOCYTES PERCENT AUTO 7.7 % (0.0-8.0); NEUTROPHILS ABSOLUTE AUTO 7.94 K/uL (1.80-7.70); NEUTROPHILS PERCENT AUTO 83.4 % (41.0-71.0); NRBC ABSOLUTE 0.00 K/uL (0.00-0.02); NRBC PERCENT 0.0 /100WBC (0.0-0.2); PLATELET COUNT,PLT 195 K/uL (150-400)
[2024-09-21 13:46] LABS: BLOOD UREA NITROGEN,BUN 14.0 mg/dL (7.0-18.0); CARBON DIOXIDE,CO2 37.0 mmol/L (21.0-32.0); CHLORIDE,CL 100.0 mmol/L (98-107); CREATININE 1.2 mg/dL (0.8-1.3); EST CRCL DRUG DOSING (CG) 61.37 mL/min; ESTIMATED GFR 67.0 mL/min (>60); GLUCOSE RANDOM 108.0 mg/dL (74-106); POTASSIUM,K 4.8 mmol/L (3.5-5.1); PRO B-TYPE NATRIUR PEPT,BNPPRO 455.0 pg/mL (0-125); SODIUM,NA 141.0 mmol/L (136-148)
[2024-09-21 16:48] LABS: BASE EXCESS ARTERIAL 8.9 (-2.0-3.0); BICARBONATE,ARTERIAL 39 mEq/L (21-28); PCO2 ARTERIAL 77 mmHG (35-45); PO2 ARTERIAL 86 mmHG (83-108)
[2024-09-21] MEDS ORDERED: Ondansetron 4 MG/2 ML SDV IVPUSH PRN (17:01)
[2024-09-21] MEDS ORDERED: Nitroglycerin 0.4 MG Tab.SL SL PRN (17:08)
[2024-09-21] MEDS: LORazepam 2 MG/ML SDV IV ONE (17:31)
[2024-09-21] MEDS: Pantoprazole 40 MG in Sodium Chloride 0.9% 10 ML IVPUSH SCH (17:31)
[2024-09-21] MEDS: Fluticasone NASAL Spray 16 GM Bottle NASBOTH SCH (20:11)
[2024-09-21 21:25] LABS: BASE EXCESS VENOUS 6.5 (-2.0-3.0); BICARBONATE,VENOUS 38.0 mEq/L (22-29); PCO2 VENOUS 89.0 mmHG (41-51); PH,VENOUS 7.24 (7.32-7.43); PO2 VENOUS 48.0 mmHG (35-45)
[2024-09-22 00:27] LABS: BASE EXCESS VENOUS 7.9 (-2.0-3.0); BICARBONATE,VENOUS 39.0 mEq/L (22-29); PCO2 VENOUS 82.0 mmHG (41-51); PH,VENOUS 7.28 (7.32-7.43); PO2 VENOUS 57.0 mmHG (35-45)
[2024-09-22 06:31] LABS: BASOPHILS ABSOLUTE AUTO 0.01 K/uL (0.00-0.20); BASOPHILS PERCENT AUTO 0.1 % (0.0-1.0); EOSINOPHILS ABSOLUTE AUTO 0.00 K/uL (0.00-0.45); EOSINOPHILS PERCENT AUTO 0.0 % (0.0-6.0); IMMATURE GRAN ABSOLUTE AUTO 0.02 K/uL (0.00-0.05); IMMATURE GRAN PERCENT AUTO 0.2 % (0.0-0.4); LYMPHOCYTES ABSOLUTE AUTO 0.35 K/uL (1.00-4.80); LYMPHOCYTES PERCENT AUTO 4.3 % (24.0-44.0); MEAN PLATELET VOLUME 10.0 fL (9.4-12.4); MONOCYTES ABSOLUTE AUTO 0.44 K/uL (0.00-0.80); MONOCYTES PERCENT AUTO 5.4 % (0.0-8.0); NEUTROPHILS ABSOLUTE AUTO 7.35 K/uL (1.80-7.70); NEUTROPHILS PERCENT AUTO 90.0 % (41.0-71.0); NRBC ABSOLUTE 0.00 K/uL (0.00-0.02); NRBC PERCENT 0.0 /100WBC (0.0-0.2); PLATELET COUNT,PLT 171 K/uL (150-400); RED BLOOD CELL COUNT 4.21 M/uL (4.52-5.90); WHITE BLOOD CELL COUNT,WBC 8.17 K/uL (3.9-11.3)
[2024-09-22 06:32] LABS: BASE EXCESS VENOUS 8.3 (-2.0-3.0); BICARBONATE,VENOUS 40.0 mEq/L (22-29); PCO2 VENOUS 93.0 mmHG (41-51); PH,VENOUS 7.24 (7.32-7.43); PO2 VENOUS 27.0 mmHG (35-45)
[2024-09-22 06:59] LABS: A/G RATIO 1.0 (0.9-1.6); ALANINE AMINOTRANSFERASE,ALT 25.0 IU/L (14-63); ASPARTATE AMNIOTRANSFERASE,AST 15.0 IU/L (15-37); BILIRUBIN TOTAL 0.6 mg/dL (0.2-1.0); BLOOD UREA NITROGEN,BUN 16.0 mg/dL (7.0-18.0); CARBON DIOXIDE,CO2 37.6 mmol/L (21.0-32.0); CHLORIDE,CL 101.0 mmol/L (98-107); CREATININE 1.2 mg/dL (0.8-1.3); EST CRCL DRUG DOSING (CG) 61.37 mL/min; GLUCOSE RANDOM 125.0 mg/dL (74-106); POTASSIUM,K 5.3 mmol/L (3.5-5.1); PROTEIN TOTAL,TP 6.5 g/dL (6.4-8.2); SODIUM,NA 140.0 mmol/L (136-148)
[2024-09-22 07:00] LABS: ESTIMATED GFR 67.0 mL/min (>60)
[2024-09-22] MEDS: methylPREDNISolone Sodium Succinate 40 MG/1 ML SDV IVPUSH SCH (08:42)
[2024-09-22 08:49] LABS: PCO2 VENOUS 76.0 mmHG (41-51); PH,VENOUS 7.32 (7.32-7.43); PO2 VENOUS 32.0 mmHG (35-45)
[2024-09-22 08:50] LABS: BASE EXCESS VENOUS 9.6 (-2.0-3.0); BICARBONATE,VENOUS 39.0 mEq/L (22-29)
[2024-09-22] MEDS ORDERED: 50% Dextrose in Water 50 ML Syringe IVPUSH PRN (09:17)
[2024-09-22] MEDS: Formoterol/Mometasone 100-5 MCG 8.8 GM Inhaler INH SCH (09:41)
[2024-09-22 12:28] LABS: BASE EXCESS VENOUS 9.5 (-2.0-3.0); BICARBONATE,VENOUS 38.0 mEq/L (22-29); PCO2 VENOUS 69.0 mmHG (41-51); PH,VENOUS 7.35 (7.32-7.43); PO2 VENOUS 62.0 mmHG (35-45)
[2024-09-22 12:49] LABS: BLOOD UREA NITROGEN,BUN 21.0 mg/dL (7.0-18.0); CARBON DIOXIDE,CO2 35.8 mmol/L (21.0-32.0); CHLORIDE,CL 98.0 mmol/L (98-107); CREATININE 1.0 mg/dL (0.8-1.3); EST CRCL DRUG DOSING (CG) 73.65 mL/min; GLUCOSE RANDOM 152.0 mg/dL (74-106); POTASSIUM,K 5.2 mmol/L (3.5-5.1); SODIUM,NA 138.0 mmol/L (136-148)
[2024-09-22 12:52] LABS: ESTIMATED GFR 84.0 mL/min (>60)
[2024-09-22] MEDS: Albuterol 0.083% 2.5 MG/3 ML Neb Soln NEB ONE (14:06)
[2024-09-22 18:24] LABS: BASE EXCESS VENOUS 11.3 (-2.0-3.0); BICARBONATE,VENOUS 41.0 mEq/L (22-29); PCO2 VENOUS 80.0 mmHG (41-51); PH,VENOUS 7.32 (7.32-7.43); PO2 VENOUS 45.0 mmHG (35-45)
[2024-09-22 23:22] LABS: PH,VENOUS 7.38 (7.32-7.43)
[2024-09-22 23:23] LABS: BASE EXCESS VENOUS 10.5 (-2.0-3.0); BICARBONATE,VENOUS 39.0 mEq/L (22-29); PCO2 VENOUS 65.0 mmHG (41-51); PO2 VENOUS 65.0 mmHG (35-45)
[2024-09-23 05:34] LABS: BASOPHILS ABSOLUTE AUTO 0.00 K/uL (0.00-0.20); BASOPHILS PERCENT AUTO 0.0 % (0.0-1.0); EOSINOPHILS ABSOLUTE AUTO 0.00 K/uL (0.00-0.45); EOSINOPHILS PERCENT AUTO 0.0 % (0.0-6.0); IMMATURE GRAN ABSOLUTE AUTO 0.03 K/uL (0.00-0.05); IMMATURE GRAN PERCENT AUTO 0.3 % (0.0-0.4); LYMPHOCYTES ABSOLUTE AUTO 0.35 K/uL (1.00-4.80); LYMPHOCYTES PERCENT AUTO 3.3 % (24.0-44.0); MEAN PLATELET VOLUME 10.2 fL (9.4-12.4); MONOCYTES ABSOLUTE AUTO 0.49 K/uL (0.00-0.80); MONOCYTES PERCENT AUTO 4.7 % (0.0-8.0); NEUTROPHILS ABSOLUTE AUTO 9.59 K/uL (1.80-7.70); NEUTROPHILS PERCENT AUTO 91.7 % (41.0-71.0); NRBC ABSOLUTE 0.00 K/uL (0.00-0.02); NRBC PERCENT 0.0 /100WBC (0.0-0.2); PLATELET COUNT,PLT 165 K/uL (150-400); RED BLOOD CELL COUNT 4.03 M/uL (4.52-5.90); WHITE BLOOD CELL COUNT,WBC 10.46 K/uL (3.9-11.3)
[2024-09-23 05:58] LABS: BLOOD UREA NITROGEN,BUN 20.0 mg/dL (7.0-18.0); CARBON DIOXIDE,CO2 36.7 mmol/L (21.0-32.0); CHLORIDE,CL 96.0 mmol/L (98-107); CREATININE 1.0 mg/dL (0.8-1.3); EST CRCL DRUG DOSING (CG) 73.65 mL/min; GLUCOSE RANDOM 135.0 mg/dL (74-106); POTASSIUM,K 4.9 mmol/L (3.5-5.1); SODIUM,NA 134.0 mmol/L (136-148)
[2024-09-23 06:02] LABS: ESTIMATED GFR 84.0 mL/min (>60)
[2024-09-23] MEDS: Ciprofloxacin 0.3% Ophth Soln 2.5 ML Bottle EYEBOTH SCH (11:46)
[2024-09-23 12:33] LABS: BASE EXCESS VENOUS 12.1 (-2.0-3.0); BICARBONATE,VENOUS 40.0 mEq/L (22-29); PCO2 VENOUS 61.0 mmHG (41-51); PH,VENOUS 7.42 (7.32-7.43); PO2 VENOUS 53.0 mmHG (35-45)
[2024-09-24 05:26] LABS: BASOPHILS ABSOLUTE AUTO 0.01 K/uL (0.00-0.20); BASOPHILS PERCENT AUTO 0.1 % (0.0-1.0); EOSINOPHILS ABSOLUTE AUTO 0.00 K/uL (0.00-0.45); EOSINOPHILS PERCENT AUTO 0.0 % (0.0-6.0); IMMATURE GRAN ABSOLUTE AUTO 0.04 K/uL (0.00-0.05); IMMATURE GRAN PERCENT AUTO 0.4 % (0.0-0.4); LYMPHOCYTES ABSOLUTE AUTO 0.29 K/uL (1.00-4.80); LYMPHOCYTES PERCENT AUTO 2.8 % (24.0-44.0); MEAN PLATELET VOLUME 10.1 fL (9.4-12.4); MONOCYTES ABSOLUTE AUTO 0.70 K/uL (0.00-0.80); MONOCYTES PERCENT AUTO 6.9 % (0.0-8.0); NEUTROPHILS ABSOLUTE AUTO 9.16 K/uL (1.80-7.70); NEUTROPHILS PERCENT AUTO 89.8 % (41.0-71.0); NRBC ABSOLUTE 0.00 K/uL (0.00-0.02); NRBC PERCENT 0.0 /100WBC (0.0-0.2); PLATELET COUNT,PLT 168 K/uL (150-400); RED BLOOD CELL COUNT 3.96 M/uL (4.52-5.90); WHITE BLOOD CELL COUNT,WBC 10.20 K/uL (3.9-11.3)
[2024-09-24 05:46] LABS: BLOOD UREA NITROGEN,BUN 19.0 mg/dL (7.0-18.0); CARBON DIOXIDE,CO2 37.8 mmol/L (21.0-32.0); CHLORIDE,CL 99.0 mmol/L (98-107); CREATININE 1.0 mg/dL (0.8-1.3); EST CRCL DRUG DOSING (CG) 73.65 mL/min; GLUCOSE RANDOM 128.0 mg/dL (74-106); POTASSIUM,K 4.8 mmol/L (3.5-5.1); SODIUM,NA 139.0 mmol/L (136-148)
[2024-09-24 05:55] LABS: ESTIMATED GFR 84.0 mL/min (>60)
[2024-09-24] MEDS: cefTRIAXone 1 GM in Water For Injection, Sterile 10 ML IVPUSH SCH (13:40)
[2024-09-25 05:30] LABS: BASOPHILS ABSOLUTE AUTO 0.01 K/uL (0.00-0.20); BASOPHILS PERCENT AUTO 0.1 % (0.0-1.0); EOSINOPHILS ABSOLUTE AUTO 0.01 K/uL (0.00-0.45); EOSINOPHILS PERCENT AUTO 0.1 % (0.0-6.0); IMMATURE GRAN ABSOLUTE AUTO 0.03 K/uL (0.00-0.05); IMMATURE GRAN PERCENT AUTO 0.4 % (0.0-0.4); LYMPHOCYTES ABSOLUTE AUTO 0.78 K/uL (1.00-4.80); LYMPHOCYTES PERCENT AUTO 9.8 % (24.0-44.0); MEAN PLATELET VOLUME 10.0 fL (9.4-12.4); MONOCYTES ABSOLUTE AUTO 0.67 K/uL (0.00-0.80); MONOCYTES PERCENT AUTO 8.4 % (0.0-8.0); NEUTROPHILS ABSOLUTE AUTO 6.45 K/uL (1.80-7.70); NEUTROPHILS PERCENT AUTO 81.2 % (41.0-71.0); NRBC ABSOLUTE 0.00 K/uL (0.00-0.02); NRBC PERCENT 0.0 /100WBC (0.0-0.2); PLATELET COUNT,PLT 159 K/uL (150-400); RED BLOOD CELL COUNT 4.21 M/uL (4.52-5.90); WHITE BLOOD CELL COUNT,WBC 7.95 K/uL (3.9-11.3)
[2024-09-25 05:50] LABS: BLOOD UREA NITROGEN,BUN 18.0 mg/dL (7.0-18.0); CARBON DIOXIDE,CO2 42.0 mmol/L (21.0-32.0); CHLORIDE,CL 101.0 mmol/L (98-107); CREATININE 1.1 mg/dL (0.8-1.3); EST CRCL DRUG DOSING (CG) 66.95 mL/min; GLUCOSE RANDOM 87.0 mg/dL (74-106); POTASSIUM,K 4.4 mmol/L (3.5-5.1); SODIUM,NA 141.0 mmol/L (136-148)
[2024-09-25 05:54] LABS: ESTIMATED GFR 75.0 mL/min (>60)
[2024-09-26 06:25] LABS: BASOPHILS ABSOLUTE AUTO 0.00 K/uL (0.00-0.20); BASOPHILS PERCENT AUTO 0.0 % (0.0-1.0); EOSINOPHILS ABSOLUTE AUTO 0.04 K/uL (0.00-0.45); EOSINOPHILS PERCENT AUTO 0.5 % (0.0-6.0); IMMATURE GRAN ABSOLUTE AUTO 0.02 K/uL (0.00-0.05); IMMATURE GRAN PERCENT AUTO 0.3 % (0.0-0.4); LYMPHOCYTES ABSOLUTE AUTO 0.80 K/uL (1.00-4.80); LYMPHOCYTES PERCENT AUTO 10.6 % (24.0-44.0); MEAN PLATELET VOLUME 10.3 fL (9.4-12.4); MONOCYTES ABSOLUTE AUTO 0.68 K/uL (0.00-0.80); MONOCYTES PERCENT AUTO 9.0 % (0.0-8.0); NEUTROPHILS ABSOLUTE AUTO 6.03 K/uL (1.80-7.70); NEUTROPHILS PERCENT AUTO 79.6 % (41.0-71.0); NRBC ABSOLUTE 0.00 K/uL (0.00-0.02); NRBC PERCENT 0.0 /100WBC (0.0-0.2); PLATELET COUNT,PLT 154 K/uL (150-400); RED BLOOD CELL COUNT 4.29 M/uL (4.52-5.90); WHITE BLOOD CELL COUNT,WBC 7.57 K/uL (3.9-11.3)
[2024-09-26 06:58] LABS: BLOOD UREA NITROGEN,BUN 20.0 mg/dL (7.0-18.0); CARBON DIOXIDE,CO2 37.9 mmol/L (21.0-32.0); CHLORIDE,CL 99.0 mmol/L (98-107); CREATININE 1.0 mg/dL (0.8-1.3); EST CRCL DRUG DOSING (CG) 73.65 mL/min; GLUCOSE RANDOM 95.0 mg/dL (74-106); POTASSIUM,K 3.9 mmol/L (3.5-5.1); SODIUM,NA 141.0 mmol/L (136-148)
[2024-09-26 07:05] LABS: ESTIMATED GFR 84.0 mL/min (>60)
[2024-09-26 18:52] VITALS: BP 104/59; PULSE 72
== END 2024-09-26 12:45 | disposition home or self-care (01) | DRG 189 ==
LOC: MW.ED 12:37 → MW.ICU 15:12 → MW.MS 09-24 12:46
PROVIDERS: ADMIT Family Medicine; ATTEND Family Medicine
DX: J96.21 Acute and chronic respiratory failure with hypoxia (principal); J44.1 Chronic obstructive pulmonary disease with (acute) exacerbation; I50.9 Heart failure, unspecified; I50.32 Chronic diastolic (congestive) heart failure; Z68.41 Body mass index [BMI] 40.0-44.9, adult; Z87.891 Personal history of nicotine dependence; E66.2 Morbid (severe) obesity with alveolar hypoventilation; I25.2 Old myocardial infarction; F17.200 Nicotine dependence, unspecified, uncomplicated; E66.813 Obesity, class 3; I11.0 Hypertensive heart disease with heart failure; E78.00 Pure hypercholesterolemia, unspecified; M54.9 Dorsalgia, unspecified; G89.29 Other chronic pain; Z79.82 Long term (current) use of aspirin; Z98.49 Cataract extraction status, unspecified eye; Z79.899 Other long term (current) drug therapy
CPT/HCPCS: 36415; 71045; 80048; 83880; 84484 ×2; 85025; 87428; 93005; 94640; 96374; 99285; A9270 ×3; J2919; J3490; 36600; 80053; 82803; 83735; 84132; 84145; 94660; 94667; 94668; 99222; 99232; 99238; J0692; J0696; J1650; J2470

== ENCOUNTER 2024-11-14 12:04 | Emergency (ER) | payer BC, MEDICARE ==
[2024-11-14 12:30] LABS: BASOPHILS ABSOLUTE AUTO 0.03 K/uL (0.00-0.20); BASOPHILS PERCENT AUTO 0.3 % (0.0-1.0); EOSINOPHILS ABSOLUTE AUTO 0.26 K/uL (0.00-0.45); EOSINOPHILS PERCENT AUTO 2.9 % (0.0-6.0); IMMATURE GRAN ABSOLUTE AUTO 0.02 K/uL (0.00-0.05); IMMATURE GRAN PERCENT AUTO 0.2 % (0.0-0.4); LYMPHOCYTES ABSOLUTE AUTO 0.66 K/uL (1.00-4.80); LYMPHOCYTES PERCENT AUTO 7.3 % (24.0-44.0); MEAN PLATELET VOLUME 10.1 fL (9.4-12.4); MONOCYTES ABSOLUTE AUTO 0.79 K/uL (0.00-0.80); MONOCYTES PERCENT AUTO 8.7 % (0.0-8.0); NEUTROPHILS ABSOLUTE AUTO 7.31 K/uL (1.80-7.70); NEUTROPHILS PERCENT AUTO 80.6 % (41.0-71.0); NRBC ABSOLUTE 0.00 K/uL (0.00-0.02); NRBC PERCENT 0.0 /100WBC (0.0-0.2); PLATELET COUNT,PLT 159 K/uL (150-400); RED BLOOD CELL COUNT 4.48 M/uL (4.52-5.90); WHITE BLOOD CELL COUNT,WBC 9.07 K/uL (3.9-11.3)
[2024-11-14] MEDS: methylPREDNISolone Sodium Succinate 125 MG/2 ML SDV IVPUSH ONE (12:31)
[2024-11-14 13:25] LABS: A/G RATIO 1.1 (0.9-1.6); ALANINE AMINOTRANSFERASE,ALT 32.0 IU/L (14-63); ASPARTATE AMNIOTRANSFERASE,AST 23.0 IU/L (15-37); BILIRUBIN TOTAL 0.6 mg/dL (0.2-1.0); BLOOD UREA NITROGEN,BUN 12.0 mg/dL (7.0-18.0); CARBON DIOXIDE,CO2 36.9 mmol/L (21.0-32.0); CHLORIDE,CL 100.0 mmol/L (98-107); CREATININE 1.3 mg/dL (0.8-1.3); EST CRCL DRUG DOSING (CG) 56.65 mL/min; GLUCOSE RANDOM 96.0 mg/dL (74-106); POTASSIUM,K 4.1 mmol/L (3.5-5.1); PRO B-TYPE NATRIUR PEPT,BNPPRO 228.0 pg/mL (0-125); PROTEIN TOTAL,TP 6.6 g/dL (6.4-8.2); SODIUM,NA 140.0 mmol/L (136-148)
[2024-11-14 13:29] LABS: ESTIMATED GFR 61.0 mL/min (>60)
[2024-11-14 15:11] VITALS: BP 148/77; PULSE 79
== END 2024-11-14 15:11 | disposition home or self-care (01) ==
LOC: MW.ED 12:04
DX: J44.1 Chronic obstructive pulmonary disease with (acute) exacerbation (principal); I11.0 Hypertensive heart disease with heart failure; I50.9 Heart failure, unspecified; I25.2 Old myocardial infarction; E78.00 Pure hypercholesterolemia, unspecified; Z86.16 Personal history of COVID-19; Z79.51 Long term (current) use of inhaled steroids; Z79.899 Other long term (current) drug therapy
CPT/HCPCS: 36415; 71045; 80053; 83735; 83880; 84484; 85025; 93005; 96374; 99285; J2919; J7620; 93010; 99284; A9270-GY

== ENCOUNTER 2024-11-25 17:59 | Emergency (ER) | payer BC, MEDICARE ==
[2024-11-25] MEDS ORDERED: Sodium Chloride 0.9% 10 ML Syringe FLUSH PRN (18:23)
[2024-11-25] MEDS ORDERED: Sodium Chloride 0.9% 2.5 ML Syringe FLUSH PRN (18:23)
[2024-11-25 18:56] LABS: BASOPHILS ABSOLUTE AUTO 0.02 K/uL (0.00-0.20); BASOPHILS PERCENT AUTO 0.2 % (0.0-1.0); EOSINOPHILS ABSOLUTE AUTO 0.20 K/uL (0.00-0.45); EOSINOPHILS PERCENT AUTO 2.4 % (0.0-6.0); IMMATURE GRAN ABSOLUTE AUTO 0.02 K/uL (0.00-0.05); IMMATURE GRAN PERCENT AUTO 0.2 % (0.0-0.4); LYMPHOCYTES ABSOLUTE AUTO 0.64 K/uL (1.00-4.80); LYMPHOCYTES PERCENT AUTO 7.6 % (24.0-44.0); MEAN PLATELET VOLUME 10.3 fL (9.4-12.4); MONOCYTES ABSOLUTE AUTO 0.75 K/uL (0.00-0.80); MONOCYTES PERCENT AUTO 8.9 % (0.0-8.0); NEUTROPHILS ABSOLUTE AUTO 6.83 K/uL (1.80-7.70); NEUTROPHILS PERCENT AUTO 80.7 % (41.0-71.0); NRBC ABSOLUTE 0.00 K/uL (0.00-0.02); NRBC PERCENT 0.0 /100WBC (0.0-0.2); PLATELET COUNT,PLT 149 K/uL (150-400); RED BLOOD CELL COUNT 4.52 M/uL (4.52-5.90); WHITE BLOOD CELL COUNT,WBC 8.46 K/uL (3.9-11.3)
[2024-11-25 19:15] LABS: INR 1.04 (0.86-1.11); PTT,PARTIAL THROMBOPLSTIN TIME 26.6 SEC (23.9-30.7)
[2024-11-25] MEDS: methylPREDNISolone Sodium Succinate 125 MG/2 ML SDV IVPUSH ONE (19:16)
[2024-11-25 19:26] LABS: LACTIC ACID 1.1 mmol/L (0.4-2.0)
[2024-11-25 19:29] LABS: A/G RATIO 1.1 (0.9-1.6); ALANINE AMINOTRANSFERASE,ALT 26.0 IU/L (14-63); ASPARTATE AMNIOTRANSFERASE,AST 21.0 IU/L (15-37); BILIRUBIN TOTAL 0.6 mg/dL (0.2-1.0); BLOOD UREA NITROGEN,BUN 16.0 mg/dL (7.0-18.0); CARBON DIOXIDE,CO2 34.6 mmol/L (21.0-32.0); CHLORIDE,CL 99.0 mmol/L (98-107); CREATININE 1.1 mg/dL (0.8-1.3); EST CRCL DRUG DOSING (CG) 66.95 mL/min; GLUCOSE RANDOM 138.0 mg/dL (74-106); POTASSIUM,K 3.6 mmol/L (3.5-5.1); PRO B-TYPE NATRIUR PEPT,BNPPRO 355.0 pg/mL (0-125); PROTEIN TOTAL,TP 6.4 g/dL (6.4-8.2); SODIUM,NA 139.0 mmol/L (136-148)
[2024-11-25 19:35] LABS: ESTIMATED GFR 75.0 mL/min (>60)
[2024-11-25 20:29] VITALS: BP 121/65; PULSE 93
== END 2024-11-25 21:01 | disposition home or self-care (01) ==
LOC: MW.ED 17:59
DX: J42 Unspecified chronic bronchitis (principal); I11.0 Hypertensive heart disease with heart failure; I50.9 Heart failure, unspecified; E78.00 Pure hypercholesterolemia, unspecified; I25.2 Old myocardial infarction; Z95.5 Presence of coronary angioplasty implant and graft; Z79.899 Other long term (current) drug therapy; Z87.891 Personal history of nicotine dependence
CPT/HCPCS: 36415; 71045; 80053; 83605; 83690; 83735; 83880; 84484; 85025; 85610; 85730; 93005; 96374; 99285; A9270; J2919; J7620; 93010; 99284

== ENCOUNTER 2024-12-11 16:59 | Emergency (ER) | payer BC, MEDICARE ==
[2024-12-11 17:41] LABS: BASOPHILS ABSOLUTE AUTO 0.03 K/uL (0.00-0.20); BASOPHILS PERCENT AUTO 0.5 % (0.0-1.0); EOSINOPHILS ABSOLUTE AUTO 0.31 K/uL (0.00-0.45); EOSINOPHILS PERCENT AUTO 4.7 % (0.0-6.0); IMMATURE GRAN ABSOLUTE AUTO 0.01 K/uL (0.00-0.05); IMMATURE GRAN PERCENT AUTO 0.2 % (0.0-0.4); LYMPHOCYTES ABSOLUTE AUTO 0.70 K/uL (1.00-4.80); LYMPHOCYTES PERCENT AUTO 10.5 % (24.0-44.0); MEAN PLATELET VOLUME 10.3 fL (9.4-12.4); MONOCYTES ABSOLUTE AUTO 0.58 K/uL (0.00-0.80); MONOCYTES PERCENT AUTO 8.7 % (0.0-8.0); NEUTROPHILS ABSOLUTE AUTO 5.03 K/uL (1.80-7.70); NEUTROPHILS PERCENT AUTO 75.4 % (41.0-71.0); NRBC ABSOLUTE 0.00 K/uL (0.00-0.02); NRBC PERCENT 0.0 /100WBC (0.0-0.2); PLATELET COUNT,PLT 160 K/uL (150-400); RED BLOOD CELL COUNT 4.68 M/uL (4.52-5.90); WHITE BLOOD CELL COUNT,WBC 6.66 K/uL (3.9-11.3)
[2024-12-11 18:15] LABS: A/G RATIO 1.2 (0.9-1.6); ALANINE AMINOTRANSFERASE,ALT 29 IU/L (14-63); ASPARTATE AMNIOTRANSFERASE,AST 23 IU/L (15-37); BILIRUBIN TOTAL 0.8 mg/dL (0.2-1.0); BLOOD UREA NITROGEN,BUN 9 mg/dL (7.0-18.0); CARBON DIOXIDE,CO2 30.8 mmol/L (21.0-32.0); CHLORIDE,CL 101 mmol/L (98-107); CREATININE 1.0 mg/dL (0.8-1.3); GLUCOSE RANDOM 88 mg/dL (74-106); POTASSIUM,K 4.1 mmol/L (3.5-5.1); PRO B-TYPE NATRIUR PEPT,BNPPRO 350 pg/mL (0-125); PROTEIN TOTAL,TP 6.9 g/dL (6.4-8.2); SODIUM,NA 141 mmol/L (136-148)
[2024-12-11 18:17] LABS: ESTIMATED GFR 84 mL/min (>60)
[2024-12-11 18:57] VITALS: BP 133/71; PULSE 71
== END 2024-12-11 18:57 | disposition home or self-care (01) ==
LOC: MW.ED 16:59
DX: R19.7 Diarrhea, unspecified (principal); R06.02 Shortness of breath; I11.0 Hypertensive heart disease with heart failure; I50.9 Heart failure, unspecified; I25.2 Old myocardial infarction; E78.00 Pure hypercholesterolemia, unspecified; J44.9 Chronic obstructive pulmonary disease, unspecified; Z95.5 Presence of coronary angioplasty implant and graft; Z79.899 Other long term (current) drug therapy
CPT/HCPCS: 36415; 71045; 71045-26; 80053; 83690; 83880; 85025; 87426-QW; 93005; 93010; 94640; 99284; 99285; A9270-GY

== ENCOUNTER 2024-12-26 15:16 | Emergency (ER) | payer BC, MEDICARE ==
[2024-12-26 15:37] VITALS: BP 133/89; PULSE 83
[2024-12-26] MEDS ORDERED: Sodium Chloride 0.9% 10 ML Syringe FLUSH PRN (15:45)
[2024-12-26] MEDS ORDERED: Sodium Chloride 0.9% 2.5 ML Syringe FLUSH PRN (15:45)
[2024-12-26 15:50] LABS: BASOPHILS ABSOLUTE AUTO 0.05 K/uL (0.00-0.20); BASOPHILS PERCENT AUTO 0.5 % (0.0-1.0); EOSINOPHILS ABSOLUTE AUTO 0.22 K/uL (0.00-0.45); EOSINOPHILS PERCENT AUTO 2.4 % (0.0-6.0); IMMATURE GRAN ABSOLUTE AUTO 0.02 K/uL (0.00-0.05); IMMATURE GRAN PERCENT AUTO 0.2 % (0.0-0.4); LYMPHOCYTES ABSOLUTE AUTO 0.74 K/uL (1.00-4.80); LYMPHOCYTES PERCENT AUTO 7.9 % (24.0-44.0); MEAN PLATELET VOLUME 10.3 fL (9.4-12.4); MONOCYTES ABSOLUTE AUTO 0.66 K/uL (0.00-0.80); MONOCYTES PERCENT AUTO 7.1 % (0.0-8.0); NEUTROPHILS ABSOLUTE AUTO 7.67 K/uL (1.80-7.70); NEUTROPHILS PERCENT AUTO 81.9 % (41.0-71.0); NRBC ABSOLUTE 0.00 K/uL (0.00-0.02); NRBC PERCENT 0.0 /100WBC (0.0-0.2); PLATELET COUNT,PLT 169 K/uL (150-400); RED BLOOD CELL COUNT 4.95 M/uL (4.52-5.90); WHITE BLOOD CELL COUNT,WBC 9.36 K/uL (3.9-11.3)
[2024-12-26] MEDS: methylPREDNISolone Sodium Succinate 125 MG/2 ML SDV IVPUSH ONE (16:00)
[2024-12-26 16:17] LABS: A/G RATIO 1.0 (0.9-1.6); ALANINE AMINOTRANSFERASE,ALT 22.0 IU/L (14-63); ASPARTATE AMNIOTRANSFERASE,AST 22.0 IU/L (15-37); BILIRUBIN TOTAL 0.6 mg/dL (0.2-1.0); BLOOD UREA NITROGEN,BUN 11.0 mg/dL (7.0-18.0); CARBON DIOXIDE,CO2 33.7 mmol/L (21.0-32.0); CHLORIDE,CL 103.0 mmol/L (98-107); CREATININE 0.9 mg/dL (0.8-1.3); EST CRCL DRUG DOSING (CG) 81.83 mL/min; GLUCOSE RANDOM 103.0 mg/dL (74-106); POTASSIUM,K 4.4 mmol/L (3.5-5.1); PRO B-TYPE NATRIUR PEPT,BNPPRO 187.0 pg/mL (0-125); PROTEIN TOTAL,TP 6.9 g/dL (6.4-8.2); SODIUM,NA 144.0 mmol/L (136-148)
[2024-12-26 16:18] LABS: ESTIMATED GFR 95.0 mL/min (>60)
== END 2024-12-26 18:33 | disposition left against medical advice (07) ==
LOC: MW.ED 15:16
DX: J44.1 Chronic obstructive pulmonary disease with (acute) exacerbation (principal); I11.0 Hypertensive heart disease with heart failure; I50.9 Heart failure, unspecified; E78.00 Pure hypercholesterolemia, unspecified; I25.2 Old myocardial infarction; Z95.5 Presence of coronary angioplasty implant and graft; Z79.899 Other long term (current) drug therapy
CPT/HCPCS: 36415; 71045; 71046; 80053; 83735; 83880; 84484; 85025; 93005; 94640; 96374; 99285; J2919; J7620; A9270-GY

== ENCOUNTER 2025-01-01 16:39 | Emergency (ER) | payer BC, MEDICARE ==
[2025-01-01] MEDS: Dexamethasone 4 MG/ML SDV ONE (17:05)
[2025-01-01 17:07] LABS: BASOPHILS ABSOLUTE AUTO 0.02 K/uL (0.00-0.20); BASOPHILS PERCENT AUTO 0.2 % (0.0-1.0); EOSINOPHILS ABSOLUTE AUTO 0.22 K/uL (0.00-0.45); EOSINOPHILS PERCENT AUTO 2.4 % (0.0-6.0); IMMATURE GRAN ABSOLUTE AUTO 0.02 K/uL (0.00-0.05); IMMATURE GRAN PERCENT AUTO 0.2 % (0.0-0.4); LYMPHOCYTES ABSOLUTE AUTO 0.76 K/uL (1.00-4.80); LYMPHOCYTES PERCENT AUTO 8.3 % (24.0-44.0); MEAN PLATELET VOLUME 10.3 fL (9.4-12.4); MONOCYTES ABSOLUTE AUTO 0.76 K/uL (0.00-0.80); MONOCYTES PERCENT AUTO 8.3 % (0.0-8.0); NEUTROPHILS ABSOLUTE AUTO 7.40 K/uL (1.80-7.70); NEUTROPHILS PERCENT AUTO 80.6 % (41.0-71.0); NRBC ABSOLUTE 0.00 K/uL (0.00-0.02); NRBC PERCENT 0.0 /100WBC (0.0-0.2); PLATELET COUNT,PLT 153 K/uL (150-400); RED BLOOD CELL COUNT 4.79 M/uL (4.52-5.90); WHITE BLOOD CELL COUNT,WBC 9.18 K/uL (3.9-11.3)
[2025-01-01] MEDS: methylPREDNISolone Sodium Succinate 125 MG/2 ML SDV IVPUSH ONE (17:07)
[2025-01-01] MEDS: Dexamethasone 4 MG/ML SDV IVPUSH ONE (17:08)
[2025-01-01 17:31] LABS: LACTIC ACID 1.5 mmol/L (0.4-2.0)
[2025-01-01 17:32] LABS: A/G RATIO 1.0 (0.9-1.6); ALANINE AMINOTRANSFERASE,ALT 26.0 IU/L (14-63); ASPARTATE AMNIOTRANSFERASE,AST 18.0 IU/L (15-37); BILIRUBIN TOTAL 0.6 mg/dL (0.2-1.0); BLOOD UREA NITROGEN,BUN 20.0 mg/dL (7.0-18.0); CARBON DIOXIDE,CO2 34.5 mmol/L (21.0-32.0); CHLORIDE,CL 100.0 mmol/L (98-107); CREATININE 1.0 mg/dL (0.8-1.3); EST CRCL DRUG DOSING (CG) 66.46 mL/min; GLUCOSE RANDOM 132.0 mg/dL (74-106); POTASSIUM,K 4.2 mmol/L (3.5-5.1); PRO B-TYPE NATRIUR PEPT,BNPPRO 291.0 pg/mL (0-125); PROTEIN TOTAL,TP 7.0 g/dL (6.4-8.2); SODIUM,NA 140.0 mmol/L (136-148)
[2025-01-01 17:33] LABS: ESTIMATED GFR 84.0 mL/min (>60)
[2025-01-01] MEDS: Albuterol 0.083% 2.5 MG/3 ML Neb Soln NEB ONE (17:41)
[2025-01-01] MEDS: Amoxicillin/Clavulanate K 875-125 MG Tab PO ONE (18:36)
[2025-01-01 19:30] VITALS: BP 146/76; PULSE 77
== END 2025-01-01 19:35 | disposition home or self-care (01) ==
LOC: MW.ED 16:39
DX: J44.1 Chronic obstructive pulmonary disease with (acute) exacerbation (principal); I11.0 Hypertensive heart disease with heart failure; I50.9 Heart failure, unspecified; I25.10 Atherosclerotic heart disease of native coronary artery without angina pectoris; I25.2 Old myocardial infarction
CPT/HCPCS: 36415; 71046; 80053; 83605; 83880; 84484; 85025; 87040; 87428; 93005; 96374; 96375; 99285; A9270; J1100; J2919; J7613; J7620

== ENCOUNTER 2025-02-03 17:45 | Inpatient (IN) | payer BC, MEDICARE ==
[2025-02-03] MEDS ORDERED: Sodium Chloride 0.9% 10 ML Syringe FLUSH PRN ×2 (17:55→21:02)
[2025-02-03] MEDS ORDERED: Sodium Chloride 0.9% 2.5 ML Syringe FLUSH PRN ×2 (17:55→21:02)
[2025-02-03 18:00] LABS: BASOPHILS ABSOLUTE AUTO 0.03 K/uL (0.00-0.20); BASOPHILS PERCENT AUTO 0.4 % (0.0-1.0); EOSINOPHILS ABSOLUTE AUTO 0.23 K/uL (0.00-0.45); EOSINOPHILS PERCENT AUTO 3.1 % (0.0-6.0); IMMATURE GRAN ABSOLUTE AUTO 0.03 K/uL (0.00-0.05); IMMATURE GRAN PERCENT AUTO 0.4 % (0.0-0.4); LYMPHOCYTES ABSOLUTE AUTO 0.85 K/uL (1.00-4.80); LYMPHOCYTES PERCENT AUTO 11.3 % (24.0-44.0); MEAN PLATELET VOLUME 9.9 fL (9.4-12.4); MONOCYTES ABSOLUTE AUTO 0.73 K/uL (0.00-0.80); MONOCYTES PERCENT AUTO 9.7 % (0.0-8.0); NEUTROPHILS ABSOLUTE AUTO 5.67 K/uL (1.80-7.70); NEUTROPHILS PERCENT AUTO 75.1 % (41.0-71.0); NRBC ABSOLUTE 0.00 K/uL (0.00-0.02); NRBC PERCENT 0.0 /100WBC (0.0-0.2); PLATELET COUNT,PLT 168 K/uL (150-400); RED BLOOD CELL COUNT 4.53 M/uL (4.52-5.90); WHITE BLOOD CELL COUNT,WBC 7.54 K/uL (3.9-11.3)
[2025-02-03] MEDS: methylPREDNISolone Sodium Succinate 125 MG/2 ML SDV IVPUSH ONE (18:06)
[2025-02-03] MEDS: Magnesium Sulfate 2 GM/50 mL 2 GM in Premix Bag 1 BAG IV ONE (18:07)
[2025-02-03 18:08] LABS: BASE EXCESS VENOUS 11.2 (-2.0-3.0); BICARBONATE,VENOUS 38.0 mEq/L (22-29); PCO2 VENOUS 56.0 mmHG (41-51); PH,VENOUS 7.44 (7.32-7.43); PO2 VENOUS 52.0 mmHG (35-45)
[2025-02-03 18:18] LABS: INR 1.03 (0.86-1.11)
[2025-02-03 18:36] LABS: CORONAVIRUS COVID-19 NAA NEGATIVE (NEGATIVE); INFLUENZA A NAA NEGATIVE (NEGATIVE); INFLUENZA B NAA NEGATIVE (NEGATIVE); RESPIRATORY SYNCYTIAL VIR NAA NEGATIVE (NEGATIVE)
[2025-02-03 18:41] LABS: A/G RATIO 1.1 (0.9-1.6); ALANINE AMINOTRANSFERASE,ALT 21 IU/L (14-63); ASPARTATE AMNIOTRANSFERASE,AST 19 IU/L (15-37); BILIRUBIN TOTAL 0.6 mg/dL (0.2-1.0); BLOOD UREA NITROGEN,BUN 11 mg/dL (7.0-18.0); CARBON DIOXIDE,CO2 34.6 mmol/L (21.0-32.0); CHLORIDE,CL 97 mmol/L (98-107); CREATININE 1.1 mg/dL (0.8-1.3); GLUCOSE RANDOM 106 mg/dL (74-106); POTASSIUM,K 3.9 mmol/L (3.5-5.1); PRO B-TYPE NATRIUR PEPT,BNPPRO 250 pg/mL (0-125); PROTEIN TOTAL,TP 6.4 g/dL (6.4-8.2); SODIUM,NA 136 mmol/L (136-148)
[2025-02-03 18:42] LABS: ESTIMATED GFR 75 mL/min (>60)
[2025-02-03] MEDS: Albuterol 0.083% 2.5 MG/3 ML Neb Soln NEB ONE (19:10)
[2025-02-03] MEDS: cefTRIAXone 2 GM in Water For Injection, Sterile 20 ML IVPUSH ONE (20:18)
[2025-02-03] MEDS ORDERED: Ondansetron 4 MG/2 ML SDV IVPUSH PRN (21:02)
[2025-02-03] MEDS ORDERED: Non-Formulary Medication 1 Each (Albuterol 8.5 GM Hfa.Aer.Ad) IH PRN (21:10)
[2025-02-03] MEDS ORDERED: Budesonide 0.5 MG/2 ML Neb Susp PRN (21:10)
[2025-02-03] MEDS ORDERED: Budesonide 0.5 MG/2 ML Neb Susp NEB PRN (21:13)
[2025-02-03] MEDS: Iopamidol 755 MG/ML 500 ML Multipack Bottle IVPUSH STA (21:16)
[2025-02-03 22:05] VITALS: PULSE 82
[2025-02-03] MEDS: Pantoprazole 40 MG in Sodium Chloride 0.9% 10 ML IVPUSH SCH (22:07)
[2025-02-04 05:39] LABS: BASOPHILS ABSOLUTE AUTO 0.01 K/uL (0.00-0.20); BASOPHILS PERCENT AUTO 0.1 % (0.0-1.0); EOSINOPHILS ABSOLUTE AUTO 0.00 K/uL (0.00-0.45); EOSINOPHILS PERCENT AUTO 0.0 % (0.0-6.0); IMMATURE GRAN ABSOLUTE AUTO 0.03 K/uL (0.00-0.05); IMMATURE GRAN PERCENT AUTO 0.4 % (0.0-0.4); LYMPHOCYTES ABSOLUTE AUTO 0.29 K/uL (1.00-4.80); LYMPHOCYTES PERCENT AUTO 3.5 % (24.0-44.0); MEAN PLATELET VOLUME 9.7 fL (9.4-12.4); MONOCYTES ABSOLUTE AUTO 0.17 K/uL (0.00-0.80); MONOCYTES PERCENT AUTO 2.1 % (0.0-8.0); NEUTROPHILS ABSOLUTE AUTO 7.77 K/uL (1.80-7.70); NEUTROPHILS PERCENT AUTO 93.9 % (41.0-71.0); NRBC ABSOLUTE 0.00 K/uL (0.00-0.02); NRBC PERCENT 0.0 /100WBC (0.0-0.2); PLATELET COUNT,PLT 166 K/uL (150-400); RED BLOOD CELL COUNT 4.86 M/uL (4.52-5.90); WHITE BLOOD CELL COUNT,WBC 8.27 K/uL (3.9-11.3)
[2025-02-04 06:02] LABS: A/G RATIO 0.8 (0.9-1.6); ALANINE AMINOTRANSFERASE,ALT 20.0 IU/L (14-63); ASPARTATE AMNIOTRANSFERASE,AST 20.0 IU/L (15-37); BILIRUBIN TOTAL 0.4 mg/dL (0.2-1.0); BLOOD UREA NITROGEN,BUN 10.0 mg/dL (7.0-18.0); CARBON DIOXIDE,CO2 38.4 mmol/L (21.0-32.0); CHLORIDE,CL 96.0 mmol/L (98-107); CREATININE 1.1 mg/dL (0.8-1.3); EST CRCL DRUG DOSING (CG) 60.42 mL/min; ESTIMATED GFR 75.0 mL/min (>60); GLUCOSE RANDOM 171.0 mg/dL (74-106); POTASSIUM,K 5.1 mmol/L (3.5-5.1); PROTEIN TOTAL,TP 7.3 g/dL (6.4-8.2); SODIUM,NA 136.0 mmol/L (136-148)
[2025-02-04] MEDS: methylPREDNISolone Sodium Succinate 40 MG/1 ML SDV IVPUSH SCH (08:40)
[2025-02-04 09:59] LABS: BASE EXCESS ARTERIAL 10.4 (-2.0-3.0); BICARBONATE,ARTERIAL 40 mEq/L (21-28); PCO2 ARTERIAL 72 mmHG (35-45); PO2 ARTERIAL 65 mmHG (83-108)
[2025-02-04] MEDS: cefTRIAXone 2 GM in Water For Injection, Sterile 20 ML IVPUSH SCH (20:56)
[2025-02-05 05:34] LABS: BASOPHILS ABSOLUTE AUTO 0.00 K/uL (0.00-0.20); BASOPHILS PERCENT AUTO 0.0 % (0.0-1.0); EOSINOPHILS ABSOLUTE AUTO 0.00 K/uL (0.00-0.45); EOSINOPHILS PERCENT AUTO 0.0 % (0.0-6.0); IMMATURE GRAN ABSOLUTE AUTO 0.03 K/uL (0.00-0.05); IMMATURE GRAN PERCENT AUTO 0.3 % (0.0-0.4); LYMPHOCYTES ABSOLUTE AUTO 0.31 K/uL (1.00-4.80); LYMPHOCYTES PERCENT AUTO 2.9 % (24.0-44.0); MEAN PLATELET VOLUME 10.1 fL (9.4-12.4); MONOCYTES ABSOLUTE AUTO 0.38 K/uL (0.00-0.80); MONOCYTES PERCENT AUTO 3.6 % (0.0-8.0); NEUTROPHILS ABSOLUTE AUTO 9.84 K/uL (1.80-7.70); NEUTROPHILS PERCENT AUTO 93.2 % (41.0-71.0); NRBC ABSOLUTE 0.00 K/uL (0.00-0.02); NRBC PERCENT 0.0 /100WBC (0.0-0.2); PLATELET COUNT,PLT 144 K/uL (150-400); RED BLOOD CELL COUNT 4.36 M/uL (4.52-5.90); WHITE BLOOD CELL COUNT,WBC 10.56 K/uL (3.9-11.3)
[2025-02-05 06:08] LABS: A/G RATIO 0.9 (0.9-1.6); ALANINE AMINOTRANSFERASE,ALT 17.0 IU/L (14-63); ASPARTATE AMNIOTRANSFERASE,AST 14.0 IU/L (15-37); BILIRUBIN TOTAL 0.3 mg/dL (0.2-1.0); BLOOD UREA NITROGEN,BUN 16.0 mg/dL (7.0-18.0); CARBON DIOXIDE,CO2 37.7 mmol/L (21.0-32.0); CHLORIDE,CL 98.0 mmol/L (98-107); CREATININE 1.1 mg/dL (0.8-1.3); EST CRCL DRUG DOSING (CG) 60.42 mL/min; ESTIMATED GFR 75.0 mL/min (>60); GLUCOSE RANDOM 169.0 mg/dL (74-106); POTASSIUM,K 5.1 mmol/L (3.5-5.1); PROTEIN TOTAL,TP 6.4 g/dL (6.4-8.2); SODIUM,NA 138.0 mmol/L (136-148)
[2025-02-05 09:22] VITALS: BP 143/77
== END 2025-02-05 11:41 | disposition home or self-care (01) | DRG 140 ==
LOC: MW.ED 17:45 → MW.ICU 21:02
PROVIDERS: ADMIT Family Medicine; ATTEND Family Medicine
PROC: 5A09457 Assistance with Respiratory Ventilation, 24-96 Consecutive Hours, Continuous Positive Airway Pressure (ICD-10-PCS; principal; 2025-02-03)
PROC: 4A033R1 Measurement of Arterial Saturation, Peripheral, Percutaneous Approach (ICD-10-PCS; 2025-02-03)
PROC: 3E03329 Introduction of Other Anti-infective into Peripheral Vein, Percutaneous Approach (ICD-10-PCS; 2025-02-03)
DX: J44.1 Chronic obstructive pulmonary disease with (acute) exacerbation (principal); J96.22 Acute and chronic respiratory failure with hypercapnia; J96.21 Acute and chronic respiratory failure with hypoxia; I25.10 Atherosclerotic heart disease of native coronary artery without angina pectoris; I10 Essential (primary) hypertension; D86.9 Sarcoidosis, unspecified; J98.11 Atelectasis; I11.0 Hypertensive heart disease with heart failure; F17.200 Nicotine dependence, unspecified, uncomplicated; I50.9 Heart failure, unspecified; E78.00 Pure hypercholesterolemia, unspecified; I25.2 Old myocardial infarction; G89.29 Other chronic pain; E66.813 Obesity, class 3; Z79.2 Long term (current) use of antibiotics; Z95.5 Presence of coronary angioplasty implant and graft; Z79.899 Other long term (current) drug therapy; Z99.81 Dependence on supplemental oxygen; Z98.49 Cataract extraction status, unspecified eye; Z68.42 Body mass index [BMI] 45.0-49.9, adult
CPT/HCPCS: 36415; 36600; 71045; 71045-26; 71275; 71275-26; 80053; 82803; 83605; 83735; 83880; 84484; 85025; 85610; 87040; 87637; 87899; 93005; 94640; 94660; A4216; A9270-GY; J0456; J0696; J1650; J2470; J2919; J3475; J7050; Q9967